=== PATIENT | female | born 1995 | race African-American/Black ===

== ENCOUNTER 2019-05-19 13:44 | Emergency (ER) | payer OTHER, SELFPAY ==
[2019-05-19 14:16] VITALS: BP 106/67; PULSE 78; RESP 19; TEMP 37; O2SAT 100
[2019-05-19 14:29] LABS: Basophils Percent Auto 0.5 % (0.2-1.2); Eosinophils Absolute Auto 0.1 K/mm3 (0-0.3); Eosinophils Percent Auto 2.1 % (0-4.4); Hematocrit 34.8 % (37.0-47.0); Hemoglobin 10.9 g/dL (12.0-15.0); Immature Granulocyte Absolute 0.01 K/mm3 (0.00-0.031); Immature Granulocyte Percent A 0.2 % (0-0.5); Lymphocytes Absolute Auto 1.34 K/mm3 (0.9-3.2); Lymphocytes Percent Auto 31.4 % (18.3-44.2); Mean Corpuscular HGB Conc 31.3 g/dl (32-36); Mean Corpuscular Hemoglobin 26.8 pg (26-34); Mean Corpuscular Volume 85.5 fl (80-100); Mean Platelet Volume 8.5 fl (7.4-10.4); Monocytes Absolute Auto 0.3 K/mm3 (0.1-0.6); Monocytes Percent Auto 6.1 % (2.6-8.5); Neutrophils Absolute Auto 2.6 K/mm3 (1.3-6.7); Neutrophils Percent Auto 59.7 % (45.5-73.1); Platelet Count Result 440 k/mm3 (150-375); Red Blood Count 4.07 M/mm3 (4.2-5.4); Red Cell Distribution Width 17.4 % (11.5-14.5); White Blood Count 4.3 K/mm3 (4.5-10.0)
[2019-05-19 14:43] LABS: Alanine Aminotransferase 14 U/L (4-35); Albumin Level 4.6 g/dL (3.5-5.1); Alkaline Phosphatase 61 U/L (38-126); Aspartate Amino Transferase 27 U/L (14-36); Bilirubin,Total 0.3 mg/dL (0.2-1.3); Blood Urea Nitrogen 4 mg/dL (7-17); Calcium 9.6 mg/dL (8.4-10.2); Carbon Dioxide 26 mmol/L (22-30); Chloride 103 mmol/L (98-107); Estimated Glomerular Filt Rate > 60; Glucose 94 mg/dL (65-105); Lipase 90 U/L (23-300); Potassium 3.5 mmol/L (3.4-5.0); Sodium 137 mmol/L (137-145)
--- NOTE | 2019-05-19 15:56 | PC.NURSE ---
1525 pt left waiting room with friend and child.
== END 2019-05-19 15:56 | disposition left against medical advice (07) ==
PROVIDERS: Emergency Provider Emergency Medicine
DX: R11.10 Vomiting, unspecified (principal)
CPT/HCPCS: 36415; 80053; 83690; 85025; 99199

== ENCOUNTER 2019-06-08 06:07 | Emergency (ER) | payer OTHER, SELFPAY ==
[2019-06-08 06:16] VITALS: BP 139/85; PULSE 100; RESP 16; TEMP 36.9; O2SAT 100
--- NOTE | 2019-06-08 06:16 | ED.GENADULT ---
HPI - General Adult General Chief complaint: Nausea/Vomiting/Diarrhea Stated complaint: n/v, preg Time Seen by Provider: 06/08/19 06:16 Source: patient Mode of arrival: ambulatory Limitations: no limitations History of Present Illness HPI narrative: Patient is a 24-year-old female who presents for evaluation of nausea and vomiting. Per patient, she is reportedly 2 months . She is a , last resulted in a miscarriage. Patient reports a one-month history of nausea, vomiting, intermittent diarrhea. No chest pain or shortness of breath currently. No vaginal bleeding or discharge. No dysuria or hematuria. No fever or chills. Patient has an appointment with an WAREHOUSE ADMINISTRATIVE ASSISTANT for . No back pain or abdominal pain or cramping. Patient states she has not been able to hold any fluids down over the past week. She was seen at [facility] facility and given IV fluids and discharged home last week. Related Data Allergies Allergy/AdvReac Type Severity Reaction Status Date / Time No Known Allergies Allergy Verified 02/15/19 17:30 Review of Systems Review of Systems: Narrative: CONSTITUTIONAL: Denies fever, chills, or sweats. ENT: Denies rhinorrhea, congestion, sore throat, or otalgia. CARDIOVASCULAR: Denies chest pain, palpitations, or edema. RESPIRATORY: Denies cough or dyspnea. GASTROINTESTINAL: Denies abdominal pain, reports nausea, vomiting, intermittent diarrhea GENITOURINARY: Denies dysuria or hematuria. SKIN: Denies rash or itching. MUSCULOSKELETAL: Denies back pain, joint pain, or myalgia. NEUROLOGIC: Denies headache, numbness, or weakness. PMFSH Surgical History Surgical History (Updated 06/08/19 @ 06:25 by Zaira Pimentel MD) H/O section Social History Social History (Updated 06/08/19 @ 06:25 by Zaira Pimentel MD) Smoking status: Never smoker Alcohol intake: never Substance use: former Substance use type: marijuana Gender identity (if verbalized by the patient): Female Exam Narrative: Exam Narrative: GENERAL: Well-appearing, well-nourished, and in no acute distress. HEAD: Normocephalic, atraumatic. EYES: PERRLA and EOMI. ENT: Nares clear, no rhinorrhea or epistaxis. Mucous membranes moist. NECK: Supple. CHEST: Clear to auscultation. No respiratory distress. HEART: Regular rate and rhythm. No murmur heard. Normal peripheral pulses. ABDOMEN: Soft, nontender, nondistended, normal active bowel sounds. EXTREMITIES: Normal range of motion. No edema. SKIN: Warm, dry, no rash. NEURO: No focal deficits. Alert and oriented x3 Course Course Emergency Course: Patient presented for evaluation of nausea and vomiting in the setting of first trimester . The time of initial assessment, ABCs are intact and vital signs are stable. Physical examination is unremarkable. Patient was stable vital signs. Patient is well-appearing, moist mucous membranes, no signs of severe dehydration. She is not having any vaginal bleeding, vaginal discharge, pelvic pain or loss of fluids. Patient has evidence of dehydration with ketones in urinalysis. Urinalysis might be consistent with UTI although it does appear to be contaminated given squamous cells present. Pt with trace bacteriuria given state will treat this. Otherwise, laboratory results show mild hypokalemia, which is able to replenish orally after the patient was given IV fluids and antiemetic. Patient has follow-up with her WAREHOUSE ADMINISTRATIVE ASSISTANT this week. She was then discharged home. Vital Signs Vital signs: Vital Signs Temperature 36.9 C 06/08/19 06:16 Pulse Rate 100 06/08/19 06:16 Respiratory Rate 16 06/08/19 06:16 Blood Pressure 139/85 06/08/19 06:16 Pulse Oximetry 100 06/08/19 06:16 Temperature 36.9 C 06/08/19 06:16 Pulse Rate 100 06/08/19 06:16 Respiratory Rate 16 06/08/19 06:16 Blood Pressure 139/85 06/08/19 06:16 Pulse Oximetry 100 06/08/19 06:16 Medical Decision Making Vit
[2019-06-08] MEDS: SODIUM CHLORIDE 0.9% IV 1,000 ML 999 ML IV CONT (06:29)
[2019-06-08] MEDS: ONDANSETRON INJ 4 MG/2 ML VIAL IV PUSH (06:29)
[2019-06-08 06:35] LABS: Basophils Percent Auto 0.2 % (0.2-1.2); Hematocrit 35.6 % (37.0-47.0); Hemoglobin 11.7 g/dL (12.0-15.0); Immature Granulocyte Absolute 0.01 K/mm3 (0.00-0.031); Immature Granulocyte Percent A 0.2 % (0-0.5); Lymphocytes Absolute Auto 0.86 K/mm3 (0.9-3.2); Lymphocytes Percent Auto 13.8 % (18.3-44.2); Mean Corpuscular HGB Conc 32.9 g/dl (32-36); Mean Corpuscular Hemoglobin 27.5 pg (26-34); Mean Corpuscular Volume 83.6 fl (80-100); Monocytes Absolute Auto 0.3 K/mm3 (0.1-0.6); Neutrophils Absolute Auto 5.1 K/mm3 (1.3-6.7); Neutrophils Percent Auto 81.8 % (45.5-73.1); Platelet Count Result 427 k/mm3 (150-375); Red Blood Count 4.26 M/mm3 (4.2-5.4); Red Cell Distribution Width 17.6 % (11.5-14.5); White Blood Count 6.2 K/mm3 (4.5-10.0)
[2019-06-08 06:40] LABS: Add Urine Microscopic? YES; Appearance Urine Cloudy (Clear); Bacteria Urine Trace /hpf; Bilirubin Urine 1+ (Negative); Blood Urine Negative (Negative); Color Urine Yellow (Yellow); Glucose Urine UA Negative (Negative); Ketones Urine 2+ mg/dL (Negative); Leukocyte Esterase Ur 2+ LEU/UL (Negative); Mucus Urine Heavy /lpf; Nitrate Urine Negative (Negative); Protein Urine 3+ mg/dL (Negative); Squamous Epithelial Cell Urine Many /hpf (Few)
[2019-06-08 06:48] LABS: Alanine Aminotransferase 20 U/L (4-35); Alkaline Phosphatase 61 U/L (38-126); Aspartate Amino Transferase 32 U/L (14-36); Bilirubin,Total 0.3 mg/dL (0.2-1.3); Blood Urea Nitrogen 8 mg/dL (7-17); Calcium 10.1 mg/dL (8.4-10.2); Carbon Dioxide 24 mmol/L (22-30); Chloride 100 mmol/L (98-107); Estimated Glomerular Filt Rate > 60; Glucose 106 mg/dL (65-105); Lipase 160 U/L (23-300); Potassium 2.9 mmol/L (3.4-5.0); Sodium 135 mmol/L (137-145)
[2019-06-08] MEDS: DEXTROSE 5%/0.45% SOD CHL 1,000 ML 1000 ML IV CONT (06:58)
[2019-06-08] MEDS: POTASSIUM CHLORIDE 20 MEQ TABLET 40 MEQ PO (07:49)
[2019-06-08] MEDS: FAMOTIDINE 20 MG/2 ML VIAL IV PUSH (07:49)
[2019-06-08 07:50] VITALS: BP 106/87; PULSE 84; RESP 16
== END 2019-06-08 07:50 | disposition home or self-care (01) ==
PROVIDERS: Emergency Provider Emergency Medicine
DX: O21.1 Hyperemesis gravidarum with metabolic disturbance (principal); O26.891 Other specified pregnancy related conditions, first trimester; R82.71 Bacteriuria; Z3A.09 9 weeks gestation of pregnancy
CPT/HCPCS: 36415; 80053; 81001; 81025; 83690; 84702; 85025; 87086; 87088; 96365; 96375; 99284; A9270; J2405; J7030

== ENCOUNTER 2019-08-16 13:07 | Outpatient (CLI) | payer OTHER, SELFPAY ==
--- NOTE | ~2019-08-16 | US_ITS ---
EXAMINATION: US OB follow up EXAM DATE: 08/16/2019 13:46 INDICATION: . 2nd trimester. TECHNIQUE: Pelvic obstetrical transabdominal sonogram was performed by a technologist. There are mu ltiple grayscale and Doppler images available for interpretation. There are no earlier studies of th is gestation for comparison. FINDINGS: There is a single fetus identified in vertex presentation with a heart rate of 154 beats pe r minute. The placenta is located in the anterior position. There is no sonographic evidence of retr oplacental hemorrhage identified. BIOMETRIC DATA: Biparietal diameter (BPD): 4.4cm ----------------> 19 weeks 3 days. Head circumference (HC): 16.8 cm ----------------> 19 weeks 3 days. Abdominal circumference (AC): 13.5 cm ----------> 19 weeks 0 days. Femur length (FL): 2.9 cm --------------------------> 18 weeks 5 days. These measurements are concordant. HC/AC ratio is 1.25 (The 5th -- 95th percentile range is 1.09-1.26. Estimated weight is 265 g +/- 40 g. This is the 20th percentile when the currently reported cl inical gestation age 19 weeks 3 days, clinical estimated date of delivery (KASSY-OPE) 01/07/20 is used. estimated gestational age based on measurements from this exam is 19 weeks 1 day, with an topher mated date of delivery (KASSY-AUA) 01/08. IMPRESSION: 1. Single fetus in vertex presentation with heart rate 154 beats per minute. 2. Estimated weight of 265 grams, 20th percentile using the currently reported clinical gestat ion age of 19 weeks 3 days, KASSY(OPE) 01/06. Reviewed, dictated and finalized at location A. IMPRESSION: 1. Single fetus in vertex presentation with heart rate 154 beats per minute. 2. Estimated weight of 265 grams, 20th percentile using the currently re ported clinical gestation age of 19 weeks 3 days, KASSY(OPE) 01/06.
== END 2019-08-16 13:08 | disposition home or self-care (01) ==
DX: Z34.80 Encounter for supervision of other normal pregnancy, unspecified trimester (principal); Z3A.19 19 weeks gestation of pregnancy
CPT/HCPCS: 76816

== ENCOUNTER 2019-12-05 10:55 | Observation (INO) | payer OTHER, SELFPAY ==
[2019-12-05] VITALS (11 sets, daily range): BP systolic 104–133; BP diastolic 62–86; PULSE 72–97; RESP 16; TEMP 36.9; O2SAT 100; BMI 26.9
--- NOTE | 2019-12-05 10:53 | PC.NURSE ---
GAVE REPORT TO SHLOMO COURTNEY IN OB
--- NOTE | 2019-12-05 12:08 | PC.NURSE ---
spoke to Steph Cunningham CNM and reported pt admission. notified walk in and pt has 2 previous c sections. complains of lower abdominal pain. pt states old c section place feeling burning sensation. pt states she has not been able to eat for two days due to nausea. IV fluid order received.
[2019-12-05 12:28] LABS: Add Urine Microscopic? YES; Appearance Urine Cloudy (Clear); Bacteria Urine Trace /hpf; Bilirubin Urine Negative (Negative); Blood Urine Negative (Negative); Color Urine Yellow (Yellow); Glucose Urine UA Negative (Negative); Ketones Urine 2+ mg/dL (Negative); Leukocyte Esterase Ur 1+ LEU/UL (NEGATIVE); Mucus Urine Moderate /lpf; Nitrate Urine Negative (Negative); Protein Urine 1+ mg/dL (Negative); RBC Urine 0-2 /hpf (0-2); Squamous Epithelial Cell Urine Many /hpf (Few); WBC Urine 0-3 /hpf (0-3)
[2019-12-05] MEDS: LACTATED RINGERS 1,000 ML 999 ML IV CONT (12:41)
[2019-12-05] MEDS: ONDANSETRON INJ 4 MG/2 ML VIAL IV PUSH (12:42)
--- NOTE | 2019-12-05 13:00 | PC.NURSE ---
pt states she is feeling better and asked for food.
--- NOTE | 2019-12-05 14:08 | PC.NURSE ---
Addendum entered by Isabella Santiago RN 12/05/19 14:09: this note was entered for 1330 Original Note: called Steph bull cnm and reported UA result and improvement of pt pain. discharge order received
--- NOTE | 2019-12-26 08:08 | P.PNOB_ITS ---
OB - Triage/Final Diagnosis Evaluation Laboratory results: Laboratory Tests 12/05/19 12:03 Urine Color Yellow Urine Appearance Cloudy H Urine pH 7.0 Ur Specific [place] 1.020 Urine Protein 1+ H Urine Glucose (UA) Negative Urine Ketones 2+ H Ur Blood (Man) Negative Urine Nitrate Negative Urine Bilirubin Negative Urine Urobilinogen 4.0 H Ur Leukocyte Esterase 1+ H Urine RBC 0-2 Urine WBC 0-3 Ur Squamous Epith Cells Many H Urine Bacteria Trace Hyaline Casts 1-2 Urine Mucus Moderate H Final Diagnosis (1) False labor: Code(s): O47.9 - False labor, unspecified Status: Acute
== END 2019-12-05 13:48 | disposition home or self-care (01) ==
PROVIDERS: Admitting Provider Obstetrics & Gynecology; PCP Advanced Practice Midwife; Visit Provider Obstetrics & Gynecology
DX: O47.9 False labor, unspecified (principal); Z3A.00 Weeks of gestation of pregnancy not specified
CPT/HCPCS: 81001; 87086; 87088; 96374; G0378; G0379; J2405; J7120

== ENCOUNTER 2020-11-25 00:30 | Emergency (ER) | payer OTHER, SELFPAY ==
[2020-11-25] VITALS (7 sets, daily range): BP systolic 135–146; BP diastolic 89–106; PULSE 78; RESP 16; TEMP 36.9; O2SAT 91–100
--- NOTE | ~2020-11-25 | CT_ITS ---
EXAMINATION: CT facial bones w con EXAM DATE: 11/25/2020 02:53 INDICATION: right side facial swelling eval for abscess. TECHNIQUE: Spiral CT of the facial bones was acquired in the axial plane following intravenous inject ion of 100 mL Omnipaque 350. Coronal reformatted images were also reviewed. The dose-length product (DLP) for this examination was 274.28 mGy-cm. The exposure was tailored according to patient size, and iterative reconstruction (ASIR) was used as additional dose reduction technique. There is no yfn or study for comparison. FINDINGS: Diffuse edema along the right side of face, cheek, chin. There is focal slightly peripheral ly enhancing region anterior to the right maxillary bone measuring 1.3 cm diameter by 6 mm in maximal thickness, could be an early developing abscess. This is been indicated on image 69. There are multi ple dental cavities including tooth #4, right upper premolar with subtle lucency surrounding its root , could be underlying source of infection. Some reactive sublingual, right submandibular lymph nodes. There is mild to moderate mucoperiosteal thickening in the right maxillary sinus without air-fluid l evel. IMPRESSION: 1. Multiple dental cavities, including right upper premolar periapical lucency could be source of chambers spected early developing small abscess anterior to the maxillary bone. 2. Right facial swelling. Reviewed, dictated and finalized at location A. IMPRESSION: 1. Multiple dental cavities, including right upper premolar periapical lucency could be source of suspected early developing small abscess anterior to the ma xillary bone. 2. Right facial swelling.
[2020-11-25 02:23] LABS: Basophils Percent Auto 0.3 % (0.2-1.2); Eosinophils Absolute Auto 0.1 K/mm3 (0-0.3); Eosinophils Percent Auto 1.2 % (0-4.4); Hematocrit 33.6 % (37.0-47.0); Hemoglobin 10.2 g/dL (12.0-15.0); Immature Granulocyte Absolute 0.02 K/mm3 (0.00-0.031); Immature Granulocyte Percent A 0.3 % (0-0.5); Lymphocytes Absolute Auto 1.44 K/mm3 (0.9-3.2); Lymphocytes Percent Auto 19.5 % (18.3-44.2); Mean Corpuscular HGB Conc 30.4 g/dl (32-36); Mean Corpuscular Hemoglobin 25.2 pg (26-34); Mean Platelet Volume 8.7 fl (7.4-10.4); Monocytes Absolute Auto 0.7 K/mm3 (0.1-0.6); Monocytes Percent Auto 8.8 % (2.6-8.5); Neutrophils Absolute Auto 5.2 K/mm3 (1.3-6.7); Neutrophils Percent Auto 69.9 % (45.5-73.1); Platelet Count Result 378 k/mm3 (150-375); Red Blood Count 4.05 M/mm3 (4.2-5.4); Red Cell Distribution Width 19.7 % (11.5-14.5); White Blood Count 7.4 K/mm3 (4.5-10.0)
[2020-11-25] MEDS: MORPHINE SULFATE (*CRX) 4 MG/ML INJ IV PUSH (02:24)
[2020-11-25 02:34] LABS: Lactic Acid Reflex 0.7 mmol/L (0.7-2.1)
[2020-11-25 02:35] LABS: Alanine Aminotransferase 11 U/L (4-35); Albumin Level 4.5 g/dL (3.5-5.1); Alkaline Phosphatase 68 U/L (38-126); Anion Gap 11 mmol/L (8-16); Aspartate Amino Transferase 30 U/L (14-36); Bilirubin,Total 0.2 mg/dL (0.2-1.3); Blood Urea Nitrogen 6 mg/dL (7-17); Calcium 9.7 mg/dL (8.4-10.2); Carbon Dioxide 26 mmol/L (22-30); Chloride 103 mmol/L (98-107); Estimated Glomerular Filt Rate > 60; Glucose 106 mg/dL (65-110); Potassium 3.5 mmol/L (3.4-5.0); Sodium 140 mmol/L (137-145)
--- NOTE | 2020-11-25 03:31 | PC.NURSE ---
Contacted pharmacy for abx. Spoke with Prince, he states he will send one down.
--- NOTE | 2020-11-25 03:40 | ED.GENADULT ---
HPI - General Adult General Chief complaint: Dental/Oral Stated complaint: dental pain Time Seen by Provider: 11/25/20 01:52 History of Present Illness HPI narrative: Patient 25-year-old female presents the emergency department with chief complaint of facial swelling. The patient states over the last several days she is had swelling in the right side of her face patient states that she has several teeth that have been bothering her and has not seen a dentist. The patient denies fever but reports that swelling went all the way to her eyelids. Patient states yesterday it was actually worse and it is slowly improved somewhat reports that has become exquisitely more painful. Related Data Allergies Allergy/AdvReac Type Severity Reaction Status Date / Time No Known Allergies Allergy Verified 11/25/20 01:03 Review of Systems Review of Systems: A 10 system review of systems was completed on the patient and is negative except for what is stated in the HPI. Nursing and ancillary documentation was reviewed. PMFSH Surgical History Surgical History H/O section Social History Social History Smoking status: Never smoker Alcohol intake: never Substance use: former Substance use type: marijuana Gender identity (if verbalized by the patient): Female Exam Narrative: GENERAL: Well-appearing, well-nourished, and in no acute distress. HEAD: Normocephalic, atraumatic. EYES: PERRLA and EOMI. ENT: Nares clear, no rhinorrhea or epistaxis. Mucous membranes moist. There is swelling present on the buccal mucosa of the right side there is no appreciable abscess but there is induration present in the tissue NECK: Supple. CHEST: Clear to auscultation. No respiratory distress. HEART: Regular rate and rhythm. No murmur heard. Normal peripheral pulses. ABDOMEN: Soft, nontender, nondistended, normal active bowel sounds. EXTREMITIES: Normal range of motion. No edema. SKIN: Warm, dry, no rash. NEURO: No focal deficits. Alert and oriented x3. PSYCH: Normal mood and affect. Course Vital Signs Vital signs: Vital Signs Temperature 36.9 C 11/25/20 00:35 Pulse Rate 78 11/25/20 00:35 Respiratory Rate 16 11/25/20 00:35 Blood Pressure 145/96 H 11/25/20 00:35 Pulse Oximetry 100 11/25/20 00:35 Temperature 36.9 C 11/25/20 00:35 Pulse Rate 78 11/25/20 02:26 Respiratory Rate 16 11/25/20 02:26 Blood Pressure 146/100 H 11/25/20 02:26 Pulse Oximetry 100 11/25/20 02:26 Medical Decision Making Vital Signs Vital Signs: Vital Signs Temperature 36.9 C 11/25/20 00:35 Pulse Rate 78 11/25/20 00:35 Respiratory Rate 16 11/25/20 00:35 Blood Pressure 145/96 H 11/25/20 00:35 Pulse Oximetry 100 11/25/20 00:35 Temperature 36.9 C 11/25/20 00:35 Pulse Rate 78 11/25/20 02:26 Respiratory Rate 16 11/25/20 02:26 Blood Pressure 146/100 H 11/25/20 02:26 Pulse Oximetry 100 11/25/20 02:26 Lab Data Result diagrams: 11/25/20 02:16 11/25/20 02:16 Labs: Lab Results 11/25/20 11/25/20 11/25/20 Range/Units 02:16 02:16 02:16 WBC 7.4 (4.5-10.0) K/mm3 RBC 4.05 L (4.2-5.4) M/mm3 Hgb 10.2 L (12.0-15.0) g/dL Hct 33.6 L (37.0-47.0) % MCV 83.0 (80-100) fl MCH 25.2 L (26-34) pg MCHC 30.4 L (32-36) g/dl RDW 19.7 H (11.5-14.5) % Plt Count 378 H (150-375) k/mm3 MPV 8.7 (7.4-10.4) fl Immature Gran % (Auto) 0.3 (0-0.5) % Neut % (Auto) 69.9 (45.5-73.1) % Lymph % (Auto) 19.5 (18.3-44.2) % [place] % (Auto) 8.8 H (2.6-8.5) % Eos % (Auto) 1.2 (0-4.4) % Baso % (Auto) 0.3 (0.2-1.2) % Lymph # (Auto) 1.44 (0.9-3.2) K/mm3 [place] # (Auto) 0.7 H (0.1-0.6) K/mm3 Eos # (Auto) 0.1 (0-0.3) K/mm3 Baso # (Auto) 0.0 (0.0-0.1) K/mm3 Abs Immat Gran (auto) 0.02
[2020-11-25] MEDS: AMPICILLIN SULB 3 GM/NS 100 ML 3 GM/100 ML VIAL IVPB (03:44)
--- NOTE | 2020-11-25 03:48 | PC.NURSE ---
Patient requesting more pain medications, she states that the morphine is not helping. ERP notified.
[2020-11-25 04:24] LABS: Add Urine Microscopic? YES; Appearance Urine Clear (Clear); Bacteria Urine Trace /hpf; Bilirubin Urine Negative (Negative); Blood Urine 1+ (Negative); Calcium Oxalate Crystals Urine Present /hpf; Color Urine Yellow (Yellow); Glucose Urine UA Negative (Negative); Ketones Urine Negative (Negative); Leukocyte Esterase Ur Trace LEU/UL (Negative); Mucus Urine Heavy /lpf; Nitrate Urine Negative (Negative); Protein Urine 1+ mg/dL (Negative); Specific Grav Ur 1.024 (1.001-1.035); Squamous Epithelial Cell Urine Many /hpf (Few)
== END 2020-11-25 05:08 | disposition home or self-care (01) ==
PROVIDERS: Emergency Provider Emergency Medicine
DX: L03.211 Cellulitis of face (principal); J32.9 Chronic sinusitis, unspecified
CPT/HCPCS: 36415; 70487; 80053; 81001; 81025; 83605; 85025; 87086; 87088; 96365; 96375; 99284; J0295; J2270; Q9967

== ENCOUNTER 2021-07-29 08:37 | Emergency (ER) | payer OTHER, SELFPAY ==
[2021-07-29 08:45] VITALS: BP 134/85; PULSE 109; RESP 16; TEMP 36.7; O2SAT 100
--- NOTE | 2021-07-29 09:36 | ED.EYEPROB ---
HPI - Eye Problem General Chief complaint: Eye Problems Stated complaint: Right Eye Drainage, Redness Time Seen by Provider: 07/29/21 09:16 Source: patient History of Present Illness HPI Narrative: Patient presents with right eye irritation and drainage. Her symptoms started 2 days ago she also reports multiple family members with the same. Her symptoms have not improved so she came to the ER for evaluation. She reports clear drainage from her Denies any blurry vision. She thinks she picked something up from another relative outside the house as they also had similar symptoms. She denies any fevers, chills, cough, congestion. Related Data Allergies Allergy/AdvReac Type Severity Reaction Status Date / Time No Known Allergies Allergy Verified 07/29/21 08:53 Review of Systems Review of Systems: CONSTITUTIONAL: Denies fever, chills, or sweats. EYES: Reports redness and clear drainage ge. ENT: Denies rhinorrhea, congestion, sore throat, or otalgia. CARDIOVASCULAR: Denies chest pain, palpitations, or edema. RESPIRATORY: Denies cough or dyspnea. GASTROINTESTINAL: Denies abdominal pain, nausea, vomiting, or diarrhea. GENITOURINARY: Denies dysuria or hematuria. SKIN: Denies rash or itching. MUSCULOSKELETAL: Denies back pain, joint pain, or myalgia. NEUROLOGIC: Denies headache, numbness, dizziness, or weakness. PSYCHIATRIC: Denies anxiety or depression. All systems reviewed & are unremarkable except as noted in HPI and below PMFSH Surgical History Surgical History H/O section Social History Social History Smoking status: Never smoker Alcohol intake: never Substance use: former Substance use type: marijuana Gender identity (if verbalized by the patient): Female Exam Narrative: GENERAL: Well-appearing, well-nourished, and in no acute distress. HEAD: Normocephalic, atraumatic. EYES: PERRLA and EOMI. diffuse conjunctival injection anterior chamber quiet, no photophobia ENT: Nares clear, no rhinorrhea or epistaxis. Mucous membranes moist. NECK: Supple. No masses. No JVD EXTREMITIES: Normal range of motion. No edema. SKIN: Warm, dry, no rash. NEURO: No focal deficits. Alert and oriented x3. PSYCH: Normal mood and affect. Course Vital Signs Vital signs: Vital Signs Temperature 36.7 C 07/29/21 08:45 Pulse Rate 109 H 07/29/21 08:45 Respiratory Rate 16 07/29/21 08:45 Blood Pressure 134/85 07/29/21 08:45 Pulse Oximetry 100 07/29/21 08:45 Temperature 36.7 C 07/29/21 08:45 Pulse Rate 78 07/29/21 10:21 Respiratory Rate 20 07/29/21 10:21 Blood Pressure 118/68 07/29/21 10:21 Pulse Oximetry 99 07/29/21 10:21 MDM - Eye Problem MDM Narrative Medical decision making narrative: H&P as above, vss, pt looks clinically well, exam with conjunctival injection on the right eye with clear drainage, labs/img considered, symptomatic relief available as needed, on reevaluation pt continues to looks clinically well. Suspect viral conjunctivitis, dns orbital or periorbital cellulitis, iritis. plan to tx/monitor as op w/ pcm f/u findings/plan discussed with pt, pt agree/comfortable with plan, return precautions given Discharge Plan Discharge Clinical Impression: Acute viral conjunctivitis Qualifiers: Laterality: right Qualified Code(s): B30.9 - Viral conjunctivitis, unspecified Patient Disposition: Home, Self-Care Condition: Improved Instructions: Antibiotic Form Additional Instructions: Please return if your symptoms worsen or fail to improve. If you develop a fever, can not eat/drink anything or if you have any other concerns. Prescriptions: New carboxymethylcellulose sodium [Refresh Liquigel] 1 % drops, liquid gel 2 drp EACH EYE BID PRN (Reason: dry eye(s)) Qty: 15 RF: 0 bacitracin 500 unit/gram ointment 1 applic RIGHT EYE Q12H Qty: 3.5 RF: 0 No Act
[2021-07-29 10:21] VITALS: BP 118/68; PULSE 78; RESP 20; O2SAT 99
== END 2021-07-29 10:23 | disposition home or self-care (01) ==
PROVIDERS: Emergency Provider Emergency Medicine
DX: B30.9 Viral conjunctivitis, unspecified (principal)
CPT/HCPCS: 99283

== ENCOUNTER 2022-04-13 17:02 | Emergency (ER) | payer OTHER, SELFPAY ==
[2022-04-13 17:24] VITALS: BP 130/88; PULSE 89; RESP 17; TEMP 37.2; O2SAT 100
--- NOTE | 2022-04-13 19:47 | ED.SKABFB ---
HPI - Skin/Abscess/Foreign Bdy General Chief complaint: Skin/Abscess/Foreign Body Stated complaint: knot on head Time Seen by Provider: 04/13/22 18:52 Source: patient Mode of arrival: ambulatory Limitations: no limitations History of Present Illness HPI narrative: This is a 26 year old female that presents to the ER for cold symptoms ongoing over the last couple of days. Reports congestion, sore throat and a headache. Reports she noted a knot on the back of her head which prompted her to be seen. Denies fever or cough. Related Data Allergies Allergy/AdvReac Type Severity Reaction Status Date / Time No Known Allergies Allergy Verified 04/13/22 18:22 Review of Systems Review of Systems: CONSTITUTIONAL: Denies fever ENT: Reports congestion, sore throat RESPIRATORY: Denies cough All systems reviewed & are unremarkable except as noted in HPI and below PMFSH Past Medical History Medical History (Updated 04/13/22 @ 21:32 by Dalia Worrell PA-C) No active medical problems Surgical History Surgical History H/O section Social History Social History Smoking status: Never smoker Alcohol intake: never Substance use: former Substance use type: marijuana Gender identity (if verbalized by the patient): Female Exam Narrative: GENERAL: Well-appearing, well-nourished, and in no acute distress. HEAD: Normocephalic, atraumatic. EYES: EOMI. ENT: Nares clear, no rhinorrhea or epistaxis. Mucous membranes moist. Oropharynx without tonsillar hypertrophy exudate or other lesions. Bilateral TMs pearly gil non-bulging NECK: Supple. No masses. Left posterior cervical adenopathy, tender to palpation CHEST: Clear to auscultation. No respiratory distress. No wheezes rales or rhonchi HEART: Regular rate and rhythm. No murmur heard. Normal peripheral pulses. EXTREMITIES: Normal range of motion. No edema. SKIN: Warm, dry, no rash. NEURO: No focal deficits. Alert and oriented x3. CN II-XII grossly intact PSYCH: Normal mood and affect Course Vital Signs Vital signs: Vital Signs Temperature 98.9 F 01/29/23 17:24 Pulse Rate 89 04/13/22 17:24 Respiratory Rate 17 04/13/22 17:24 Blood Pressure 130/88 04/13/22 17:24 Pulse Oximetry 100 04/13/22 17:24 Temperature 98.9 F 04/13/22 17:24 Pulse Rate 89 04/13/22 17:24 Respiratory Rate 17 04/13/22 17:24 Blood Pressure 130/88 04/13/22 17:24 Pulse Oximetry 100 04/13/22 17:24 MDM - Skin/Abscess/Foreign Bdy MDM Narrative Medical decision making narrative: Patient presents to the emergency department for some posterior cervical adenopathy. She has a small, mobile lymph node in the left posterior cervical region. She is afebrile and nontoxic-appearing. She was also endorsing some cold symptoms. Her oxygen saturation is normal on room air. Lungs are clear on exam. Monoscreen, influenza, COVID, and strep screens are negative. Patient was instructed on continued symptomatic care of viral infection and instructed to monitor her mildly inflamed lymph node. She is to follow-up with her primary provider. She was given warnings to return to the ER Differential Diagnosis Differential diagnosis: Likely abscess of skin or subcutaneous tissue and other (lymphadenopathy, viral infection) Lab Data Attestation: I reviewed the patient's lab results. Labs: Lab Results 04/13/22 04/13/22 04/13/22 Range/Units 19:56 19:56 20:24 Monoscreen Negative (Negative) Influenza A (RT-PCR) Negative (Negative) Influenza B (RT-PCR) Negative (Negative) RSV (RT-PCR) Negative (Negative) SARS-CoV-2 RNA (RT-PCR) Negative Group A Strep (PCR) Not detected (Negative) Critical Care Time Critical Care Time Critical Care Time: No Discharge Plan Discharge Clinical Impression: Lymphadenopathy, Acute viral synd
[2022-04-13] MEDS: ACETAMINOPHEN 500 MG TABLET 1000 MG PO (19:48)
[2022-04-13] MEDS: KETOROLAC 30 MG/ML VIAL (*BKC) IM (19:48)
[2022-04-13 20:25] LABS: Strep Group A RT-PCR NOT DETECTED (Negative)
[2022-04-13 20:42] LABS: Influenza A QL RT-PCR Negative (Negative); Influenza B QL RT-PCR Negative (Negative); RSV RNA, RT-PCR Negative (Negative); SARS-CoV-2 RNA PCR Negative
[2022-04-13 21:12] LABS: Monoscreen Negative (Negative); Negative Monotest Control Negative (Negative); Positive Monotest Control Positive (Positive)
== END 2022-04-13 21:45 | disposition home or self-care (01) ==
PROVIDERS: Emergency Provider Physician Assistant
DX: B34.9 Viral infection, unspecified (principal); R59.1 Generalized enlarged lymph nodes; Z20.822 Contact with and (suspected) exposure to COVID-19
CPT/HCPCS: 36415; 86308; 87637; 87651; 96372; 99283; A9270; J1885

== ENCOUNTER 2024-07-17 08:56 | Observation (INO) | payer OTHER, SELFPAY ==
[2024-07-17] VITALS (21 sets, daily range): BP systolic 123–137; BP diastolic 82–92; PULSE 36–86; O2SAT 74–100; BMI 23.8
--- NOTE | ~2024-07-17 | US_ITS ---
LIMITED OBSTETRIC ULTRASOUND Ordering provider: Chintan Berry MD History: . EDC confirmation, well being, XOCHITL @bedside . Comparison: None. FINDINGS: MATERNAL CERVIX: Measures 2.9 cm. cm. PRESENTATION: Vertex. PLACENTAL LOCATION: Anterior. No previa. Distance from cervix is 5.8 cm. HEART RATE: 148 bpm (normal is between 110 to 160 bpm). AMNIOTIC FLUID INDEX: 12.6 cm. 5th percentile is 7.7 cm. 95th percentile is 24.9 cm. Largest vertica l pocket is 4.1 cm. BIOMETRY: BPD: 6.65) cm (26weeks 6 days) HC: 24.48 cm (26 weeks 4 days) AC: 21.25 cm (25 weeks 5 days) FL: 4.57 cm (25 weeks 1 days) Parametric ratios: Today's average US gestational age: 26 weeks 1 days Today's EDC: October 22, 2024 XOCHITL: 12.64. Estimated weight: 839.89gm. Rank: CI: 79.25 HC/AC: 1.15 FL/BPD: 68.81 FL/AC: 21.52. OTHER: Maternal ovaries not visualized. IMPRESSION: Single live fetus of cephalic presentation. Heart rate is 148 bpm. Reviewed, dictated and finalized at location A.
--- NOTE | 2024-07-17 09:48 | PC.NURSE ---
Ultrasound at bedside
[2024-07-17 10:21] LABS: Add Urine Microscopic? YES; Appearance Urine Cloudy (Clear); Bacteria Urine Rare /hpf; Bilirubin Urine Negative (Negative); Blood Urine Negative (Negative); Color Urine Yellow (Yellow); Glucose Urine UA Negative (Negative); Ketones Urine 1+ mg/dL (Negative); Leukocyte Esterase Ur 2+ LEU/UL (Negative); Mucus Urine Present /lpf; Need Manual Microscopic Reviewed; Nitrate Urine Negative (Negative); Non Pathogenic Casts 0-2; Protein Urine Negative (Negative); Specific Grav Ur 1.016 (1.001-1.035); Squamous Epithelial Cell Urine Few /hpf (Few); pH Urine 7.5 (5.0-9.0)
[2024-07-17 10:24] LABS: Amphetamine Screen Urine Positive (Negative); Barbiturate Screen Urine Negative (Negative); Benzodiazepines Screen Urine Negative (Negative); Cannabinoid Screen Urine Positive (Negative); Cocaine Screen Urine Negative (Negative); Methadone Screen Urine Negative (Negative); Opiate Screen Urine Negative (Negative); Phencyclidine Screen Urine Negative (Negative)
[2024-07-17 10:35] LABS: Basophils Percent Auto 0.3 % (0.2-1.2); Eosinophils Absolute Auto 0.1 K/mm3 (0-0.3); Eosinophils Percent Auto 0.9 % (0-4.4); Hematocrit 31.4 % (37.0-47.0); Hemoglobin 10.3 g/dL (12.0-15.0); Immature Granulocyte Absolute 0.02 K/mm3 (0.00-0.031); Immature Granulocyte Percent A 0.3 % (0-0.5); Lymphocytes Absolute Auto 1.63 K/mm3 (0.9-3.2); Lymphocytes Percent Auto 28.4 % (18.3-44.2); Mean Corpuscular HGB Conc 32.8 g/dl (32-36); Mean Corpuscular Volume 94.6 fl (80-100); Mean Platelet Volume 8.4 fl (7.4-10.4); Monocytes Absolute Auto 0.3 K/mm3 (0.1-0.6); Monocytes Percent Auto 4.7 % (2.6-8.5); Neutrophils Absolute Auto 3.7 K/mm3 (1.3-6.7); Neutrophils Percent Auto 65.4 % (45.5-73.1); Platelet Count Result 384 k/mm3 (150-375); Red Blood Count 3.32 M/mm3 (4.2-5.4); Red Cell Distribution Width 13.6 % (11.5-14.5); White Blood Count 5.7 K/mm3 (4.5-10.0)
[2024-07-17] MEDS: fentaNYL CITRATE INJ (*CRX) 100 MCG/2 ML VIAL 50 MCG IV PUSH (11:08)
[2024-07-17] MEDS: DEXTROSE 5%/0.45% SOD CHL 1,000 ML 999 ML IV CONT (11:11)
[2024-07-17 11:16] LABS: Hepatitis B Surface Antigen Negative (Negative); Rubella IgG Antibody 92.1 IU/ML
[2024-07-17 11:20] LABS: Syphilis IgG/IgM Antibody Reactive (Negative)
[2024-07-17 11:26] LABS: HIV 1/2 Ab P24 Ag Result Negative (Negative)
[2024-07-17] MEDS: PENICILLIN G BENZATHINE 2,400,000 UNITS/4 ML SYRINGE 2400000 UNITS IM (12:36)
--- NOTE | 2024-07-17 13:27 | PCCCNOTE ---
Received call from SHERWIN Dyer who reported pt./mother was brought in by ambulance and is discharging back home today 07/17. Pt. was unable to get ahold of any family or friends to pick her up and does not have any money for cab/uber. SHERWIN Tirado given cab voucher for pt. to return back home today 07/17 as she is being discharge.
[2024-07-21 07:03] LABS: Reference Lab Test Name RPR W/TITER
--- NOTE | 2024-07-26 04:40 | PM.OBTRLD ---
OB - Triage/Final Diagnosis Visit Information Comments/Additional reasons for admission: I have assessed the risk for this patient, Viktor Spencer, and determined that she would benefit from observation care. Evaluation Laboratory results: Laboratory Tests 07/17/24 09:38 WBC 5.7 RBC 3.32 L Hgb 10.3 L Hct 31.4 L MCV 94.6 MCH 31.0 MCHC 32.8 RDW 13.6 Plt Count 384 H MPV 8.4 Immature Gran % (Auto) 0.3 Neut % (Auto) 65.4 Lymph % (Auto) 28.4 [place] % (Auto) 4.7 Eos % (Auto) 0.9 Baso % (Auto) 0.3 Lymph # (Auto) 1.63 [place] # (Auto) 0.3 Eos # (Auto) 0.1 Baso # (Auto) 0.0 Abs Immat Gran (auto) 0.02 Absolute Neuts (auto) 3.7 Absolute Nucleated RBC 0.000 Nucleated RBC % 0.0 Urine Color Yellow Urine Appearance Cloudy H Urine pH 7.5 Ur Specific [place] 1.016 Urine Protein Negative Urine Glucose (UA) Negative Urine Ketones 1+ H Ur Blood (Man) Negative Urine Nitrate Negative Urine Bilirubin Negative Urine Urobilinogen 1.0 Add Ur Microanalysis Reviewed Leukocyte Esterase Rfl 2+ H Urine RBC 6-10 H Urine WBC 11-20 H Ur Squamous Epith Cells Few Urine Bacteria Rare Urine Casts 0-2 Urine Mucus Present Urine Opiates Screen Negative Urine Methadone Screen Negative Ur Barbiturates Screen Negative Ur Phencyclidine Scrn Negative Ur Amphetamine Screen Positive A U Benzodiazepines Scrn Negative Urine Cocaine Screen Negative U Cannabinoids Screen Positive A Syphilis IgG/IgM Ab Reactive A RPR Titer Add Testing Cancelled RPR w/Rflx to Titer Cancelled Hep Bs Antigen Negative HIV 1&2 Ab/P24 Ag 4thGn Negative Rubella IgG Antibody 92.1 Ref Lab Test Name Rpr w/titer Ref Lab Test Result Blood Type B Positive Antibody Screen Negative Final Diagnosis (1) False labor: Code(s): O47.9 - False labor, unspecified Status: Acute (2) Antepartum syphilis: Code(s): O98.119 - Syphilis complicating , unspecified trimester Status: Acute (3) No care in current : Code(s): O09.30 - Supervision of with insufficient care, unspecified trimester Status: Acute (4) Polysubstance abuse: Code(s): F19.10 - Other psychoactive substance abuse, uncomplicated Status: Acute
== END 2024-07-17 13:39 | disposition home or self-care (01) ==
PROVIDERS: Admitting Provider Obstetrics & Gynecology; Visit Provider Obstetrics & Gynecology
DX: O47.9 False labor, unspecified (principal); O98.119 Syphilis complicating pregnancy, unspecified trimester; A53.9 Syphilis, unspecified; O09.30 Supervision of pregnancy with insufficient antenatal care, unspecified trimester; O99.320 Drug use complicating pregnancy, unspecified trimester; F19.10 Other psychoactive substance abuse, uncomplicated; Z3A.00 Weeks of gestation of pregnancy not specified; Z11.4 Encounter for screening for human immunodeficiency virus [HIV]
CPT/HCPCS: 36415; 76816; 80307; 81001; 85025; 86593; 86703; 86762; 86780; 86850; 86900; 86901; 87086; 87340; 96372; 96374; G0378; G0379; G0432; J0561; J3010

== ENCOUNTER 2024-08-05 13:36 | Observation (INO) | payer MEDICAID, SELFPAY ==
[2024-08-05 14:05] VITALS: BMI 23.4
--- NOTE | 2024-08-05 14:06 | OBADM ---
This patient, Viktor Spencer, admitted to the OB room Labor/Delivery/Recovery 106 for observation. Patient/family oriented to hospital policies and general routines including ID bracelet, bed and alarms, visiting hours, pain management, procedures, bathroom and other care routines, personal items, smoking policy, room service/diet, and visiting hours. Patient/Family are encouraged to report perceived risks to care and to ask questions if they do not understand what they are told or what they should do.
[2024-08-05 14:19] VITALS: BP 122/76; PULSE 69
--- NOTE | 2024-08-05 14:57 | PM.OBTRLD ---
OB - Triage/Final Diagnosis Visit Information Date of evaluation: 08/05/24 Reason for evaluation: other (Bleeding) Comments/Additional reasons for admission: I have assessed the risk for this patient, Viktor Geoffrey Spencer, and determined that she would benefit from observation care. Evaluation Vital signs: Vital Signs - 24 hr 08/05/24 14:19 Pulse Rate 69 Blood Pressure 122/76
--- NOTE | 2024-08-05 16:42 | PCCCNOTE ---
Received consult Met with pt. who reports she is going through a very hard time. Currently has three children an 8 year old, 5 year old, and 4 year old. She is 28 weeks with her fourth kid. FOB's are not available or in the picture. Pt.'s mother recently . She does not feel like she has a support system. She has a brother, Bib Spencer who she was staying with recently however it is a strained relationship. She also has a sister Andrea Spencer ([phone]). Pt. reports that she is technically homeless has been couch hopping with her children, was staying with her sister Andrea until Andrea's home was no longer able to be resided in. She states she was able to convince her brother Bib to watch her children while she came here. Pt. does have a substance abuse history, not tested during this observation stay but was positive for amphetamines and marijuana on 07/17 here. Pt. is vague in regards to her drug use. Pt. reports that due to her complete lack of support system and options she called DCFS on herself a few days ago to report what is going on and that she is in need of help. Pt. requesting care coordination contact DCFS to inform them again that she is in need of help with housing, food, daycare, and general assistance in order to keep her children healthy and in her custody. Provided numerous amounts of information to patient including transportation, food, day care information, all SDIA information she requested, homeless shelters for families, Loki information, substance abuse information. Informed Viktor that I will be contacted DCFS. Patient is requesting that OB start her on a medication to assist her in her depressive thoughts before she leaves, pt. reiterates that she is not suicidal or having thoughts to harm herself (she would never do that to her children) but she wants to start feeling better. RN aware and will reach out to OB. Pt. report that after dinner she plans to go back to her brother's house where her children are. Will need a cab voucher to assist in transportation. Pt. will contact RN once she knows the address, cab voucher provided to nurse. Called [facility] hotline, spoke with Katrin Elena, Intake ID # [id number]. Went over scenario above and fact that mother is requesting DCFS assistance. Per Katrin she confirms that Viktor did call and they have her on the list to start their in home service program. However, will escalate this to an dynamics ax technical architect, investigation will be completed.
== END 2024-08-05 17:19 | disposition home or self-care (01) ==
PROVIDERS: Admitting Provider Obstetrics & Gynecology; Visit Provider Obstetrics & Gynecology
DX: O46.93 Antepartum hemorrhage, unspecified, third trimester (principal); Z3A.28 28 weeks gestation of pregnancy
CPT/HCPCS: G0378; G0379

== ENCOUNTER 2024-08-27 09:48 | Observation (INO) | payer MEDICAID, SELFPAY ==
[2024-08-27] VITALS (107 sets, daily range): BP systolic 109–145; BP diastolic 61–100; PULSE 66–164; RESP 18–20; TEMP 36.5–36.9; O2SAT 88–100; BMI 25.9
--- NOTE | ~2024-08-27 | CT_ITS ---
EXAMINATION: CT BRAIN W/O DATE: 08/27/2024 10:45 INDICATION: Altered mental status TECHNIQUE: Computed tomography (CT) of the head was performed without intravenous contrast. The dose- length product was 605.33 mGy-cm. Automated exposure control and iterative reconstruction technique w ere employed. COMPARISON: No prior studies for comparison. FINDINGS: Normal brain parenchymal volume for age. Normal gil-white differentiation. No acute intrac ranial hemorrhage, infarction, mass or mass effect. No ventriculomegaly or midline shift. Midline sagittal images demonstrate a normal corpus callosum, c raniovertebral junction and sella turcica. Basilar cisterns are patent. There is mild mucosal thickening of the maxillary sinuses. Mastoids are pneumatized. No depressed sku ll fractures. IMPRESSION: 1. No acute intracranial abnormality. Reviewed, dictated and finalized at location B.
--- NOTE | ~2024-08-27 | US_ITS ---
EXAM EXAMINATION: US OB limited DATE: 08/27/2024 15:36 CDT INDICATION: Placental check COMPARISON: 07/17/2024 TECHNIQUE: Real-time transabdominal obstetric ultrasound. FINDINGS: 5 para 3 Gestational age by estimated due date is 32 weeks and 0 days. There is a single intrauterine gestation in vertex presentation. The placenta is posterior/fundal without placenta previa. Within the images of the placenta is a 4 mm focus of increased echogenicity, possibly a placental [place] cification. cardiac activity and movement is noted with a heart rate of 161 beats per minute. IMPRESSION: Single intrauterine gestation in vertex presentation with cardiac activity identified. The posterior/fundal placenta demonstrates a rounded foci of increased echogenicity, possibly represe nting placental calcification for which short-term follow-up is recommended, as calcifications prior to 36 weeks of gestation can lead to maternal and complication. Reviewed, dictated and finalized at location A. IMPRESSION: Single intrauterine gestation in vertex presentation with cardiac activit y identified. The posterior/fundal placenta demonstrates a rounded foci of increased echogeni city, possibly representing placental calcification for which short-term follow -up is recommended, as calcifications prior to 36 weeks of gestation can lead t o maternal and complication.
[2024-08-27] MEDS: LACTATED RINGERS 1,000 ML 999 ML IV CONT (10:04)
[2024-08-27] MEDS: DEXTROSE 50% 25 GM/50 ML SYRINGE IV PUSH (10:06)
--- NOTE | 2024-08-27 10:36 | PM.IMHP ---
H&P: HPI History of Present Illness Date/Time: 08/27/24 10:36 Chief Complaint: Abdominal pain Narrative: 29 y/o at 32 weeks with essentially no care. She was seen here on 07/17 and had a positive antitreponemal antibody. She was given PCN for syphilis and was able to go home. I have seen her in follow up in the office, where I also treated her with Flagyl PO for trichomonas. She says she uses marijuana, but says people have been lacing the drug with other drugs. She called EMS herself today and was brought in by ambulance. She has been intermittently conversant. The ED physician was called and was able to talk with her, but when I arrived, she was not verbally responding. She did nod yes or no to questions. Says her last MJ use was 2 days ago. Review of Systems Review of Systems: All systems reviewed & are unremarkable except as noted in HPI and below PMFSH Past Medical History Medical History Antepartum syphilis Polysubstance abuse No care in current Surgical History Surgical History H/O section Social History Social History Smoking status: Never smoker Alcohol intake: never Substance use: former Substance use type: marijuana Do You Feel Safe in your Home?: No Lack of Transportation: YES Lack of Food: Sometimes True Current Housing: I Do Not Have Housing Concerned About Future Housing: YES Difficulty Paying Gas/Electric Bills: YES Difficulty Paying for Meds: YES Currently Unemployed: YES Education: High School Diploma/GED Difficulty w/ Childcare or Family Care: YES Gender identity (if verbalized by the patient): Female Meds Home Medications and Allergies Home Medications ?Medication ?Instructions ?Recorded ?Confirmed ?Type No Home Medications 08/05/24 08/05/24 History sertraline 50 mg tablet (Zoloft) 50 mg PO DAILY #30 tabs 08/05/24 Rx Allergies Allergy/AdvReac Type Severity Reaction Status Date / Time No Known Allergies Allergy Verified 08/05/24 14:18 Vital Signs Vital Signs - 24 hr 08/27/24 10:05 08/27/24 10:06 08/27/24 10:11 Pulse Rate 91 Blood Pressure 144/91 H Pulse Oximetry 100 100 08/27/24 10:16 08/27/24 10:21 08/27/24 10:27 Pulse Rate Blood Pressure Pulse Oximetry 100 100 100 08/27/24 10:27 08/27/24 10:27 08/27/24 10:29 Pulse Rate Blood Pressure Pulse Oximetry 99 97 99 08/27/24 10:30 Pulse Rate 70 Blood Pressure 140/86 Pulse Oximetry Exam Const: Other: Well-developed, well-nourished female in bed, nodding yes or no to questions, but not currently responding verbally. (Though she has intermittently in the last hour). Resp: Effort & Inspection: normal respiratory effort Auscultation: clear to auscultation bilaterally Cardio: Rate: regular rate Rhythm: regular rhythm Heart sounds: S1 normal heart sound present and S2 normal heart sound present GI: Other: ABD: Soft, nontender, nondistended, gravid. No guarding or rebound tenderness. No hepatosplenomegaly. Bedside ultrasound by me shows ayala IUP in cephalic presentation, posterior fundal placenta, adequate AFV. NST 150 good variability. TOCO: rare contractions. : Other: Cervix closed per RN. RomPlus neg. Neuro: General: moves all extremities and deep tendon reflexes 2+ bilaterally Extrem: Other: Extremities: nontender with no edema Assessment and Plan Assessment and plan (1) No care in current : Code(s): O09.30 - Supervision of with insufficient care, unspecified trimester Status: Acute Assessment and Plan: A: IUP at approximately 32 weeks with abdominal pain, no evidence of labor. Mental status changes, suspect substance abuse as opposed to preeclampsia or seizure. P: IVF, head CT, labs. (2) Polysubstance abuse: Code(s): F19.10 - Other psychoactive substance abuse, uncomplicated Status: Acute (3) Antepartum syphilis: Code(s): O98.119 - Syphilis complicating , unspecified trimester Status: Acute
[2024-08-27 10:37] LABS: Basophils Percent Auto 0.2 % (0.2-1.2); Eosinophils Absolute Auto 0.1 K/mm3 (0-0.3); Eosinophils Percent Auto 0.8 % (0-4.4); Hematocrit 32.3 % (37.0-47.0); Hemoglobin 10.5 g/dL (12.0-15.0); Immature Granulocyte Absolute 0.03 K/mm3 (0.00-0.031); Immature Granulocyte Percent A 0.5 % (0-0.5); Lymphocytes Absolute Auto 2.63 K/mm3 (0.9-3.2); Lymphocytes Percent Auto 40.2 % (18.3-44.2); Mean Corpuscular HGB Conc 32.5 g/dl (32-36); Mean Corpuscular Hemoglobin 30.2 pg (26-34); Mean Corpuscular Volume 92.8 fl (80-100); Mean Platelet Volume 8.9 fl (7.4-10.4); Monocytes Absolute Auto 0.3 K/mm3 (0.1-0.6); Monocytes Percent Auto 4.1 % (2.6-8.5); Neutrophils Absolute Auto 3.6 K/mm3 (1.3-6.7); Neutrophils Percent Auto 54.2 % (45.5-73.1); Platelet Count Result 398 k/mm3 (150-375); Red Blood Count 3.48 M/mm3 (4.2-5.4); Red Cell Distribution Width 13.5 % (11.5-14.5); White Blood Count 6.6 K/mm3 (4.5-10.0)
[2024-08-27 10:42] LABS: Add Urine Microscopic? YES; Appearance Urine Clear (Clear); Bacteria Urine None Seen /hpf; Bilirubin Urine Negative (Negative); Blood Urine Negative (Negative); Color Urine Yellow (Yellow); Glucose Urine UA 2+ mg/dL (Negative); Ketones Urine Negative (Negative); Leukocyte Esterase Ur 2+ LEU/UL (Negative); Nitrate Urine Negative (Negative); Non Pathogenic Casts 0-2; Protein Urine Negative (Negative); Specific Grav Ur 1.018 (1.001-1.035); Squamous Epithelial Cell Urine Occasional /hpf (Few); pH Urine 7.5 (5.0-9.0)
[2024-08-27 10:48] LABS: Alanine Aminotransferase 12 U/L (6-35); Albumin Level 3.4 g/dL (3.5-5.1); Alkaline Phosphatase 142 U/L (38-126); Anion Gap 10 mmol/L (4-12); Aspartate Amino Transferase 28 U/L (14-36); Bilirubin,Total 0.3 mg/dL (0.2-1.3); Blood Urea Nitrogen 5 mg/dL (7-17); Calcium 8.4 mg/dL (8.4-10.2); Carbon Dioxide 16 mmol/L (22-30); Chloride 104 mmol/L (98-107); Estimated Glomerular Filt Rate > 60; Glucose 266 mg/dL (65-110); Potassium 3.5 mmol/L (3.4-5.0); Sodium 130 mmol/L (137-145); Total Protein 6.9 g/dL (6.3-8.2)
[2024-08-27 11:00] LABS: Amphetamine Screen Urine Negative (Negative); Barbiturate Screen Urine Negative (Negative); Benzodiazepines Screen Urine Negative (Negative); Cannabinoid Screen Urine Positive (Negative); Cocaine Screen Urine Negative (Negative); Methadone Screen Urine Negative (Negative); Opiate Screen Urine Negative (Negative); Phencyclidine Screen Urine Negative (Negative)
--- NOTE | 2024-08-27 11:10 | P.PNED_ITS ---
Subjective Date/time seen: 08/27/24 11:10 Interval history: 29-year-old female that is approximately 8 months presenting via EMS for complaint lower abdominal cramping. In route EMS stated that the patient had a drop in her blood pressure and had decreased responsiveness. Patient was still [facility]. I did check on the patient at OB. Patient was sedate appearing but did respond to verbal stimuli. Patient was able to provide some history. Patient states that she was having some abdominal cramping last night did have some blood-tinged mucus suspects that she lost her mucus plug last night. Patient states that she was unable to present to the emergency department last night because she needed childcare but that her brother agreed to watch the children today. Patient states she was having some lower abdominal discomfort along with some right- sided abdominal pain. Patient initially declined having any chest pain but did admit to chest pain when the nurse to ask. Patient states that she last used marijuana approximately 2 days ago. Patient did take her sertraline this morning. Patient denies any other drug use. Patient's blood pressure was reportedly in the 90 systolic with EMS. At time my initial evaluation patient's blood pressure was 140s over 90s. Patient's heart rate was 91. Patient was saturating at% on room air. Review of Systems Review of Systems All systems reviewed & are unremarkable except as noted in HPI and below Exam Narrative APPEARANCE: Sedated appearing but responsive to voice and follow commands HEAD: normocephalic, atraumatic. EYES: PERRLA/EOMI, conjunctivae clear. NOSE: Normal no drainage EARS:TMS clear with good light reflex. THROAT: Pharynx clear, no exudate. NECK: Supple. No adenopathy, no masses. RESPIRATORY: Airway patent, respirations nonlabored. Clear to auscultation bilaterally, no rales, rhonchi, wheezing. CARDIOVASCULAR: Regular rate and rhythm without murmurs rubs or gallops. ABDOMINAL: Soft nontender gravid abdomen MUSCULOSKELETAL: Moves all extremities. Strength/ROM intact, No edema, No calf tenderness. NEURO: Alert. Cranial nerves II through XII intact. Good gait. Good coordination SKIN: Warm, dry. Normal Color Objective Data Vital Signs Vital Signs: Vital Signs - 24 hr 08/27/24 10:05 08/27/24 10:06 08/27/24 10:11 Pulse Rate 91 Blood Pressure 144/91 H Pulse Oximetry 100 100 08/27/24 10:16 08/27/24 10:21 08/27/24 10:27 Pulse Rate Blood Pressure Pulse Oximetry 100 100 100 08/27/24 10:27 08/27/24 10:27 08/27/24 10:29 Pulse Rate Blood Pressure Pulse Oximetry 99 97 99 08/27/24 10:30 08/27/24 10:54 08/27/24 10:55 Pulse Rate 70 72 Blood Pressure 140/86 140/83 Pulse Oximetry 98 100 08/27/24 11:00 08/27/24 11:05 08/27/24 11:10 Pulse Rate 73 Blood Pressure 140/90 Pulse Oximetry 100 100 100 08/27/24 11:15 08/27/24 11:20 08/27/24 11:25 Pulse Rate 75 Blood Pressure 121/61 Pulse Oximetry 100 100 100 08/27/24 11:30 08/27/24 11:35 08/27/24 11:43 Pulse Rate 73 Blood Pressure 132/68 Pulse Oximetry 100 100 98 Meds/Results Medications: Active Medications Generic Name Dose Route Start Last Admin Trade Name Freq PRN Reason Stop Dose Admin Acetaminophen 1,000 mg 08/27/24 11:08 08/27/24 11:28 Acetaminophen 500 Mg Tablet PO 1,000 mg Q6H PRN Administration Headache Metronidazole 500 mg 08/27/24 17:00 Metronidazole 500 Mg Tablet PO BID ARIEL Radiology Results: ITS Impressions Head CT 08/27/24 10:46 IMPRESSION: 1. No acute intracranial abnormality. Labs Labs: Laboratory Results - last 24 hr 08/27/24 08/27/24 10:28 10:31 WBC 6.6 RBC 3.48 L Hgb 10.5 L Hct 32.3 L MCV 92.8 MCH 30.2 MCHC 32.5 RDW 13.5 Plt Count 398 H MPV 8.9 Immature Gran % (Auto) 0.5 Neut % (Auto) 54.2 Lymph % (Auto) 40.2 [place] % (Auto) 4.1 Eos % (Auto) 0.8 Baso % (Auto) 0.2 Lymph # (Auto) 2.63 [place] # (Auto) 0.3 Eos # (Auto) 0.1 Baso # (Auto) 0.0 Abs Immat Gran (auto) 0.03 Absolute Neuts (auto) 3.6 Absolute Nucleated RBC 0.000 Nucleated RBC % 0.0 Sodium 130 L Potassium 3.5 Chloride 104 Carbon Dioxide 16 L Anion Gap 10 BUN 5 L Creatinine 0.59 L Estim Creat Clear Calc Not Reportable Estimated GFR > 60 Glucose 266 H Uric Acid 3.0 Calcium 8.4 Total Bilirubin 0.3 AST 28 ALT 12 Alkaline Phosphatase 142 H Total Protein 6.9 Albumin 3.4 L Urine Color Yellow Urine Appearance Clear Urine pH 7.5 Ur Specific [place] 1.018 Urine Protein Negative Urine Glucose (UA) 2+ H Urine Ketones Negative Ur Blood (Man) Negative Urine Nitrate Negative Urine Bilirubin Negative Urine Urobilinogen 1.0 Leukocyte Esterase Rfl 2+ H Urine RBC 3-5 H Urine WBC 11-20 H Ur Squamous Epith Cells Occasional Urine Bacteria None seen Urine Casts 0-2 Urine Opiates Screen Negative Urine Methadone Screen Negative Ur Barbiturates Screen Negative Ur Phencyclidine Scrn Negative Ur Amphetamine Screen Negative U Benzodiazepines Scrn Negative Urine Cocaine Screen Negative U Cannabinoids Screen Positive A Progress Note: A&P Assessment and Plan (1) Polysubstance abuse: Code(s): F19.10 - Other psychoactive substance abuse, uncomplicated Status: Acute (2) Hypotension: Code(s): I95.9 - Hypotension, unspecified Status: Acute Assessment and Plan: Patient's blood pressure was improved at time of evaluation. Plan At time of initial evaluation patient is blood glucose was 65 and patient had not eaten anything today. Patient was treated with a L of lactated Ringer's along with an amp of D50. Shortly after my evaluation OB Gyne, Dr. Berry, arrived and I provided my patient report. Patient was stable and well appearing when I handed patient care to OB Gyne. Time Spent With Patient Time: 20 minutes
[2024-08-27] MEDS: ACETAMINOPHEN 500 MG TABLET 1000 MG PO ×2 (11:28→19:35)
--- NOTE | 2024-08-27 11:49 | P.PNOB_ITS ---
Pain Control Date/time seen: 08/27/24 11:49 She returned from [place] lucid and conversant. She is worried that the syphilis has affected her internal organs. She is worried that people think she is a crack head. She has no pain currently. AVSS (bp initially 140/80, but now 132/68 SaO2 100% ABD soft, nontender CT of head - no acute change UDS pos for cannabinoids Sodium 130. Stopped IVF. Initial glc 65, was 266 after 1 ampule D50. Clinically stable at present, not sure why the initial mental status changes. Have placed a call to [facility] by phone -- awaiting response.
--- NOTE | 2024-08-27 12:47 | OBADM ---
This patient, Viktor Spencer, admitted to the OB room 106 for observation. Patient/family oriented to hospital policies and general routines including ID bracelet, bed and alarms, visiting hours, pain management, procedures, bathroom and other care routines, personal items, smoking policy, room service/diet, and visiting hours. Patient/Family are encouraged to report perceived risks to care and to ask questions if they do not understand what they are told or what they should do.
[2024-08-27 13:24] LABS: Chlamydia trachomatis NOT DETECTED (NOT DETECTE); Neisseria gonorrhoeae PCR NOT DETECTED (NOT DETECTE)
[2024-08-27] MEDS: PENICILLIN G BENZATHINE 2,400,000 UNITS/4 ML SYRINGE 2400000 UNITS IM (13:36)
[2024-08-27] MEDS: metroNIDAZOLE 500 MG TABLET PO ×2 (13:54→19:36)
[2024-08-27] MEDS: NIFEdipine 10 MG CAPSULE PO (17:34)
[2024-08-27] MEDS: SERTRALINE HCL 50 MG TABLET PO (19:36)
[2024-08-27] MEDS: ZOLPIDEM TARTRATE (*CRX) 5 MG TABLET PO (19:40)
[2024-08-27 19:56] LABS: OBXCEM ROM Plus Negative (Negative)
[2024-08-28] VITALS (22 sets, daily range): BP systolic 119–139; BP diastolic 74–94; PULSE 65–95; RESP 16; TEMP 36.6–36.8; O2SAT 100
[2024-08-28] MEDS: METOCLOPRAMIDE HCL INJ 10 MG/2 ML VIAL IV PUSH (01:21)
[2024-08-28] MEDS: diphenhydrAMINE HCl INJ 50 MG/ML VIAL 25 MG IV PUSH (01:22)
--- NOTE | 2024-08-28 08:34 | P.PNOB_ITS ---
OB - PN: Subj Subjective Date/time seen: 08/28/24 08:34 Comfortable. No pain. Yesterday I had reviewed her case by phone with FLACO at [facility] to clarify treatment of syphilis, as she has not yet been seen as an outpatient by their service. He recommended weekly treatments x 3. AVSS ABD soft, nontender, gravid EXT nontender A: contractions, resolved. Syphilis, treated with PCN. P: Home to f/u for weekly PCN x 3 total doses. Reviewed instructions and precautions. F/u as scheduled in office. OB - PN: Obj Data Labs 08/27/24 10:28 08/27/24 10:28 Labs: Laboratory Results - last 24 hr 08/27/24 08/27/24 08/27/24 10:26 10:28 10:29 WBC 6.6 RBC 3.48 L Hgb 10.5 L Hct 32.3 L MCV 92.8 MCH 30.2 MCHC 32.5 RDW 13.5 Plt Count 398 H MPV 8.9 Immature Gran % (Auto) 0.5 Neut % (Auto) 54.2 Lymph % (Auto) 40.2 [place] % (Auto) 4.1 Eos % (Auto) 0.8 Baso % (Auto) 0.2 Lymph # (Auto) 2.63 [place] # (Auto) 0.3 Eos # (Auto) 0.1 Baso # (Auto) 0.0 Abs Immat Gran (auto) 0.03 Absolute Neuts (auto) 3.6 Absolute Nucleated RBC 0.000 Nucleated RBC % 0.0 Sodium 130 L Potassium 3.5 Chloride 104 Carbon Dioxide 16 L Anion Gap 10 BUN 5 L Creatinine 0.59 L Estim Creat Clear Calc Not Reportable Estimated GFR > 60 Glucose 266 H Uric Acid 3.0 Calcium 8.4 Total Bilirubin 0.3 AST 28 ALT 12 Alkaline Phosphatase 142 H Total Protein 6.9 Albumin 3.4 L Urine Color Urine Appearance Urine pH Ur Specific [place] Urine Protein Urine Glucose (UA) Urine Ketones Ur Blood (Man) Urine Nitrate Urine Bilirubin Urine Urobilinogen Leukocyte Esterase Rfl Urine RBC Urine WBC Ur Squamous Epith Cells Urine Bacteria Urine Casts Membranes Rupture Rom plus negative Urine Opiates Screen Negative Urine Methadone Screen Negative Ur Barbiturates Screen Negative Ur Phencyclidine Scrn Negative Ur Amphetamine Screen Negative U Benzodiazepines Scrn Negative Urine Cocaine Screen Negative U Cannabinoids Screen Positive A C. trachomatis (PCR) Not detected N. gonorrhoeae (PCR) Not detected 08/27/24 10:31 WBC RBC Hgb Hct MCV MCH MCHC RDW Plt Count MPV Immature Gran % (Auto) Neut % (Auto) Lymph % (Auto) [place] % (Auto) Eos % (Auto) Baso % (Auto) Lymph # (Auto) [place] # (Auto) Eos # (Auto) Baso # (Auto) Abs Immat Gran (auto) Absolute Neuts (auto) Absolute Nucleated RBC Nucleated RBC % Sodium Potassium Chloride Carbon Dioxide Anion Gap BUN Creatinine Estim Creat Clear Calc Estimated GFR Glucose Uric Acid Calcium Total Bilirubin AST ALT Alkaline Phosphatase Total Protein Albumin Urine Color Yellow Urine Appearance Clear Urine pH 7.5 Ur Specific [place] 1.018 Urine Protein Negative Urine Glucose (UA) 2+ H Urine Ketones Negative Ur Blood (Man) Negative Urine Nitrate Negative Urine Bilirubin Negative Urine Urobilinogen 1.0 Leukocyte Esterase Rfl 2+ H Urine RBC 3-5 H Urine WBC 11-20 H Ur Squamous Epith Cells Occasional Urine Bacteria None seen Urine Casts 0-2 Membranes Rupture Urine Opiates Screen Urine Methadone Screen Ur Barbiturates Screen Ur Phencyclidine Scrn Ur Amphetamine Screen U Benzodiazepines Scrn Urine Cocaine Screen U Cannabinoids Screen C. trachomatis (PCR) N. gonorrhoeae (PCR) Imaging Radiologist's impression: Impressions Head CT 08/27/24 10:46 IMPRESSION: 1. No acute intracranial abnormality. Obstetrics Ultrasound 08/27/24 15:35 IMPRESSION: Single intrauterine gestation in vertex presentation with cardiac activity identified. The posterior/fundal placenta demonstrates a rounded foci of increased echogenicity, possibly representing placental calcification for which short-term follow-up is recommended, as calcifications prior to 36 weeks of gestation can lead to maternal and complication.
[2024-08-28] MEDS: SERTRALINE HCL 50 MG TABLET PO (11:21)
[2024-08-28] MEDS: metroNIDAZOLE 500 MG TABLET PO (11:21)
--- NOTE | 2024-08-28 11:46 | PCCCNOTE ---
Call received from nursing staff requesting we assist pt with transportation issues. She was given the list of [employer] phone numbers she can call to coordinate transportation and the nursing staff given a cab voucher to [facility] and then to home at time of discharge.
[2024-08-29 08:44] LABS: Glucose Point of Care 65 mg/dl (65-105)
--- NOTE | 2024-09-11 09:47 | PM.OBTRLD ---
OB - Triage/Final Diagnosis Visit Information Comments/Additional reasons for admission: I have assessed the risk for this patient, Viktor Spencer, and determined that she would benefit from observation care. Evaluation Laboratory results: Laboratory Tests 08/27/24 08/27/24 08/27/24 09:54 10:26 10:28 WBC 6.6 RBC 3.48 L Hgb 10.5 L Hct 32.3 L MCV 92.8 MCH 30.2 MCHC 32.5 RDW 13.5 Plt Count 398 H MPV 8.9 Immature Gran % (Auto) 0.5 Neut % (Auto) 54.2 Lymph % (Auto) 40.2 [place] % (Auto) 4.1 Eos % (Auto) 0.8 Baso % (Auto) 0.2 Lymph # (Auto) 2.63 [place] # (Auto) 0.3 Eos # (Auto) 0.1 Baso # (Auto) 0.0 Abs Immat Gran (auto) 0.03 Absolute Neuts (auto) 3.6 Absolute Nucleated RBC 0.000 Nucleated RBC % 0.0 Sodium 130 L Potassium 3.5 Chloride 104 Carbon Dioxide 16 L Anion Gap 10 BUN 5 L Creatinine 0.59 L Estim Creat Clear Calc Not Reportable Estimated GFR > 60 Glucose 266 H POC Capillary Glucose 65 Uric Acid 3.0 Calcium 8.4 Total Bilirubin 0.3 AST 28 ALT 12 Alkaline Phosphatase 142 H Total Protein 6.9 Albumin 3.4 L Urine Color Urine Appearance Urine pH Ur Specific [place] Urine Protein Urine Glucose (UA) Urine Ketones Ur Blood (Man) Urine Nitrate Urine Bilirubin Urine Urobilinogen Leukocyte Esterase Rfl Urine RBC Urine WBC Ur Squamous Epith Cells Urine Bacteria Urine Casts Membranes Rupture Urine Opiates Screen Negative Urine Methadone Screen Negative Ur Barbiturates Screen Negative Ur Phencyclidine Scrn Negative Ur Amphetamine Screen Negative U Benzodiazepines Scrn Negative Urine Cocaine Screen Negative U Cannabinoids Screen Positive A C. trachomatis (PCR) Not detected N. gonorrhoeae (PCR) Not detected 08/27/24 08/27/24 10:29 10:31 WBC RBC Hgb Hct MCV MCH MCHC RDW Plt Count MPV Immature Gran % (Auto) Neut % (Auto) Lymph % (Auto) [place] % (Auto) Eos % (Auto) Baso % (Auto) Lymph # (Auto) [place] # (Auto) Eos # (Auto) Baso # (Auto) Abs Immat Gran (auto) Absolute Neuts (auto) Absolute Nucleated RBC Nucleated RBC % Sodium Potassium Chloride Carbon Dioxide Anion Gap BUN Creatinine Estim Creat Clear Calc Estimated GFR Glucose POC Capillary Glucose Uric Acid Calcium Total Bilirubin AST ALT Alkaline Phosphatase Total Protein Albumin Urine Color Yellow Urine Appearance Clear Urine pH 7.5 Ur Specific [place] 1.018 Urine Protein Negative Urine Glucose (UA) 2+ H Urine Ketones Negative Ur Blood (Man) Negative Urine Nitrate Negative Urine Bilirubin Negative Urine Urobilinogen 1.0 Leukocyte Esterase Rfl 2+ H Urine RBC 3-5 H Urine WBC 11-20 H Ur Squamous Epith Cells Occasional Urine Bacteria None seen Urine Casts 0-2 Membranes Rupture Rom plus negative Urine Opiates Screen Urine Methadone Screen Ur Barbiturates Screen Ur Phencyclidine Scrn Ur Amphetamine Screen U Benzodiazepines Scrn Urine Cocaine Screen U Cannabinoids Screen C. trachomatis (PCR) N. gonorrhoeae (PCR) Final Diagnosis (1) False labor: Code(s): O47.9 - False labor, unspecified Status: Acute
== END 2024-08-28 11:38 | disposition home or self-care (01) ==
PROVIDERS: Admitting Provider Obstetrics & Gynecology; Visit Provider Obstetrics & Gynecology
DX: O47.03 False labor before 37 completed weeks of gestation, third trimester (principal); O09.33 Supervision of pregnancy with insufficient antenatal care, third trimester; O98.113 Syphilis complicating pregnancy, third trimester; A53.9 Syphilis, unspecified; O26.53 Maternal hypotension syndrome, third trimester; O99.323 Drug use complicating pregnancy, third trimester; F19.10 Other psychoactive substance abuse, uncomplicated; O26.893 Other specified pregnancy related conditions, third trimester; R41.82 Altered mental status, unspecified; Z3A.32 32 weeks gestation of pregnancy
CPT/HCPCS: 36415; 70450; 76815; 80053; 80307; 81001; 82948; 84112; 84550; 85025; 87086; 87491; 87591; 96374; 96375; A9270; G0378; G0379; J0561; J1200; J2765; J7120

== ENCOUNTER 2024-09-09 14:02 | Observation (INO) | payer MEDICAID, SELFPAY ==
--- NOTE | 2024-09-09 17:32 | OBADM ---
This patient, Viktor Spencer, admitted to the OB room 111 for observation. Pt arrived on the unit earlier today and received care under a recurring V# [id number] for a dose of PCN and NST. When variable decels and a prolonged decel were noted, a BPP of 8/8 and XOCHITL of 14.1cm was obtained. Pt was changed to observation status for continued monitoring overnight. Patient/family oriented to hospital policies and general routines including ID bracelet, bed and alarms, visiting hours, pain management, procedures, bathroom and other care routines, personal items, smoking policy, room service/diet, and visiting hours. Patient/Family are encouraged to report perceived risks to care and to ask questions if they do not understand what they are told or what they should do.
[2024-09-09 18:00] VITALS: BP 121/82; PULSE 70; TEMP 36.6
[2024-09-09 19:00] VITALS: BP 122/84; PULSE 73
--- NOTE | 2024-09-09 19:53 | OBADM ---
This patient, Viktor Spencer, admitted to the OB room OB Post 111 for observation. Patient/family oriented to hospital policies and general routines including ID bracelet, bed and alarms, visiting hours, pain management, procedures, bathroom and other care routines, personal items, smoking policy, room service/diet, and visiting hours. Patient/Family are encouraged to report perceived risks to care and to ask questions if they do not understand what they are told or what they should do.
[2024-09-09 20:00] VITALS: BP 113/70; PULSE 70
[2024-09-09] MEDS: hydrOXYzine HCL 25 MG TABLET PO (20:35)
[2024-09-09 21:18] VITALS: BP 123/93; PULSE 65
[2024-09-09 22:00] VITALS: BP 136/88; PULSE 70
[2024-09-09] MEDS: diphenhydrAMINE HCl CAP 25 MG CAPSULE 50 MG PO (22:59)
[2024-09-09 23:04] VITALS: TEMP 36.6
[2024-09-10] MEDS: ACETAMINOPHEN 500 MG TABLET 1000 MG PO (02:39)
[2024-09-10] MEDS: ONDANSETRON HCL ODT 4 MG TABLET PO (02:46)
[2024-09-10 03:42] VITALS: BP 99/67; PULSE 61; RESP 16; TEMP 36.4
[2024-09-10 04:30] VITALS: BMI 25.9
[2024-09-10 07:54] VITALS: BP 119/78; PULSE 68
[2024-09-10 07:56] VITALS: TEMP 36.3
--- NOTE | 2024-09-10 09:33 | PM.IMHP ---
H&P: HPI History of Present Illness Date/Time: 09/10/24 09:33 Chief Complaint: decelerations Narrative: 29-year-old 4 para 3 admitted for observation due to prolonged deceleration of 6minutes. Patient was being seen for her last dose of penicillin for or syphilis treatment and for a nonstress test. While being monitored she had a prolonged 6minute deceleration down to the 90s. Remainder of the strip showed great accelerations and variability with occasional variable decelerations. Biophysical profile was 8/8 and XOCHITL was 14. Patient was monitored overnight. Patient had a 4minute deceleration and a few 2minute decelerations as well as continued occasional variables. Options were discussed with the patient and she has elected to proceed with transfer to [facility]. Review of Systems Review of Systems: All systems reviewed & are unremarkable except as noted in HPI and below (HPI) [facility] Past Medical History Medical History (Updated 09/10/24 @ 09:38 by Pily Abel MD) History of 3 Orthostatic hypotension Antepartum syphilis Polysubstance abuse Marijuana and amphetamines positive August 07 No care in current care established in early July with Dr. Berry Surgical History Surgical History (Updated 09/10/24 @ 09:38 by Pily Abel MD) H/O section 1 and 2 Social History Social History Smoking status: Never smoker Alcohol intake: never Substance use: former Substance use type: marijuana Do You Feel Safe in your Home?: Yes Lack of Transportation: YES Lack of Food: Sometimes True Current Housing: I Do Not Have Housing Concerned About Future Housing: YES Difficulty Paying Gas/Electric Bills: YES Difficulty Paying for Meds: YES Currently Unemployed: YES Education: High School Diploma/GED Difficulty w/ Childcare or Family Care: YES Gender identity (if verbalized by the patient): Female Meds Home Medications and Allergies Home Medications ?Medication ?Instructions ?Recorded ?Confirmed ?Type sertraline 50 mg tablet (Zoloft) 50 mg PO DAILY #30 tabs 08/05/24 09/09/24 Rx acetaminophen 500 mg tablet 1,000 mg (2 x 500 mg) PO Q6H PRN 08/28/24 09/09/24 Rx Headache #1 tablet metronidazole 500 mg tablet 500 mg PO BID #14 tabs 08/28/24 09/09/24 Rx Allergies Allergy/AdvReac Type Severity Reaction Status Date / Time No Known Allergies Allergy Verified 09/09/24 19:52 Vital Signs Vital Signs - 24 hr 09/09/24 18:00 09/09/24 19:00 09/09/24 20:00 Temperature 97.8 F Pulse Rate 70 73 70 Respiratory Rate Blood Pressure 121/82 122/84 113/70 Oxygen Delivery 09/09/24 21:18 09/09/24 22:00 09/09/24 23:04 Temperature 97.9 F Pulse Rate 65 70 Respiratory Rate Blood Pressure 123/93 H 136/88 Oxygen Delivery 09/10/24 03:42 09/10/24 07:54 09/10/24 07:54 Temperature 97.6 F Pulse Rate 61 68 Respiratory Rate 16 Blood Pressure 99/67 L 119/78 Oxygen Delivery Room Air 09/10/24 07:56 Temperature 97.4 F L Pulse Rate Respiratory Rate Blood Pressure Oxygen Delivery Exam Const: General: healthy appearing, comfortable and no acute distress Resp: Effort & Inspection: normal respiratory effort GI: Inspection: other (Gravid) GI Palp: No abdominal tenderness and Yes Soft to palpation Auscultation: other (See HPI for description of heart tones) Assessment and Plan Assessment and plan (1) heart rate decelerations affecting management of mother: Code(s): O36.8390 - Maternal care for abnormalities of the heart rate or rhythm, unspecified trimester, not applicable or unspecified Status: Acute Assessment and Plan: 34 weeks with prolonged decelerations occurring randomly. Patient to be transferred to [facility] (2) Antepartum syphilis: Code(s): O98.119 - Syphilis complicating , unspecified trimester Status: Acute Assessment and Plan: status post treatment with penicillin G Last titer 1:8 (3) No care in current : Code(s): O09.30 - Supervision of with insufficient care, unspecified trimester Status: Acute Assessment and Plan: Minimal care starting in late July (4) H/O section: Code(s): Z98.891 - History of uterine scar from previous surgery Status: Acute Assessment and Plan: x2 with subsequent
[2024-09-10 10:54] VITALS: BP 128/87; PULSE 105
--- NOTE | 2024-09-10 11:35 | PC.NURSE ---
1045 EMS arrived via ambulance. Gave report to EMS at [facility]. Pt transferred to [facility] clinic to be transferred to [place].
--- NOTE | 2024-09-12 08:48 | PM.TDS ---
Transfer Discharge Sum: Prov Provider Date of admission: 09/09/24 14:02 Primary care physician: [employer] Admitting clinician: Pily Abel MD Attending physician on admission: Chintan Berry Attending physician on discharge: Chintan Berry Discharging clinician: Pily Abel Anticipated date of transfer: 09/10/24 Receiving physician/facility: [facility] DS: Admitting Diagnosis Discharge Date 09/10/24 Admitting Diagnosis Syphillis decelerations DS: Discharge Diagnosis Discharge Diagnosis (1) heart rate decelerations affecting management of mother: Code(s): O36.8390 - Maternal care for abnormalities of the heart rate or rhythm, unspecified trimester, not applicable or unspecified Status: Acute (2) H/O section: Code(s): Z98.891 - History of uterine scar from previous surgery Status: Acute (3) Polysubstance abuse: Code(s): F19.10 - Other psychoactive substance abuse, uncomplicated Status: Acute (4) Antepartum syphilis: Code(s): O98.119 - Syphilis complicating , unspecified trimester Status: Acute Transfer Discharge Sum: Med Medications Active and Home Medications: Home Medications sertraline 50 mg tablet (Zoloft) 50 mg PO DAILY #30 tabs 08/05/24 [Rx Confirmed 09/09/24] acetaminophen 500 mg tablet 1,000 mg (2 x 500 mg) PO Q6H PRN Headache #1 tablet 08/28/24 [Rx Confirmed 09/09/24] metronidazole 500 mg tablet 500 mg PO BID #14 tabs 08/28/24 [Rx Confirmed 09/09/24] Transfer Discharge Sum: Hosp Hospital Course Hospital course: Viktor Spencer is a 29 year old female 4 para 3 admitted for observation due to prolonged deceleration of 6minutes. Patient was being seen for her last dose of penicillin for or syphilis treatment and for a nonstress test. While being monitored she had a prolonged 6minute deceleration down to the 90s. Remainder of the strip showed great accelerations and variability with occasional variable decelerations. Biophysical profile was 8/8 and XOCHITL was 14. Patient was monitored overnight. Patient had a 4minute deceleration and a few 2minute decelerations as well as continued occasional variables. Options were discussed with the patient and she has elected to proceed with transfer to [facility]. Patient Condition: Serious Time Spent with Patient Time attestation: Total time spent providing and/or coordinating transfer services:
== END 2024-09-10 10:45 | disposition short-term general hospital (02) ==
PROVIDERS: Admitting Provider Obstetrics & Gynecology Gynecology; Visit Provider Obstetrics & Gynecology Gynecology
DX: O36.8330 Maternal care for abnormalities of the fetal heart rate or rhythm, third trimester, not applicable or unspecified (principal); O98.113 Syphilis complicating pregnancy, third trimester; A53.9 Syphilis, unspecified; O99.323 Drug use complicating pregnancy, third trimester; F19.10 Other psychoactive substance abuse, uncomplicated; O47.03 False labor before 37 completed weeks of gestation, third trimester; O09.33 Supervision of pregnancy with insufficient antenatal care, third trimester; Z3A.34 34 weeks gestation of pregnancy; Z98.891 History of uterine scar from previous surgery
CPT/HCPCS: 76819; 96372; A9270; G0378; G0379; J0561

== ENCOUNTER 2024-09-09 14:02 | Outpatient (RCR) | payer MEDICAID, SELFPAY ==
[2024-09-02] MEDS: PENICILLIN G BENZATHINE 2,400,000 UNITS/4 ML SYRINGE 2400000 UNITS IM (14:22)
--- NOTE | 2024-09-02 15:33 | PCCCNOTE ---
Called to the OB department d/t the pt's transportation through her insurance having dropped her off and not coming back to transport her and her three kids home. Pt stated a bung driver dropped her and her three children off and they had no car seats. Called the number mom gave for transportation of [phone] and found her insurnace is not currently active which this is a [employer]. Called [phone] a [place] Medicaid transportation number and let them know the pt has three children with her. Clary the customer consultant gave 5 numbers of companies which none would transport the pt or children 1.[employer]-[phone]-number is disconnected 2.[id number]-[phone]-Had to [facility] 3.FCIO-[phone]-Do not accept medicaid. [phone] and [facility] 5.P transport [phone]-only open between 7-3, this call was placed at [phone]. Spoke again with the mom, stated she used the minor son's medicaid number to get this transportation. Let mom know we do not have the child's information, if she chose to use this mode it would be up to her to schedule. Updated pt's nurse.-shannen
--- NOTE | ~2024-09-09 | US_ITS ---
EXAMINATION: US OB BPP wo non-stress DATE: 09/09/2024 17:16 INDICATION: heart rate decelerations. Assess amniotic fluid index and biophysical profile durin g third trimester TECHNIQUE: Real-time pelvic ultrasound was performed. The interpreting radiologist was not present fo r the study. COMPARISON: None. FINDINGS: There is a single living fetus in vertex presentation. The placenta is posterior. heart rate i s 132 beats per minute (bpm). Amniotic fluid volume of 14.1 cm which is normal (5th%-95%: 8.3-24.5 cm at 33 weeks estimated gestational age) Biophysical profile performed by the technologist: breathing (30 sec sustained breathing in 30 minutes): 2 out of 2 movement (3 gross body movements in 30 minutes): 2 out of 2 tone (one episode of xhalmlf-dgblfepkh-pnlbjeg limb movement): 2 out of 2 Amniotic fluid pocket (2 cm): 2 out of 2 Total score: 8 out of 8 IMPRESSION: 1. Single living fetus in vertex presentation with heart rate of 132 bpm. 2. Biophysical profile 8 out of 8. 3. Normal amniotic fluid index of 14.1 cm. Reviewed, dictated and finalized at location A.
[2024-09-09] MEDS: PENICILLIN G BENZATHINE 2,400,000 UNITS/4 ML SYRINGE 2400000 UNITS IM (14:33)
[2024-09-09 15:00] VITALS: BP 114/75
--- NOTE | 2024-09-09 15:44 | PC.NURSE ---
Dr. Varsha Tucker returned page and given the history of this pt of Dr. Herrera here for her 3rd dose of PCN G for syphyllis treatment and NST for SGA infant. 15 sec x 15 beat variable decels were noted on initial tracing and extended the monitoring to see if any more occurred when baby had a 4 1/2 min prolonged decel down to 90's. states he has signed off to Dr. Abel for the night and to call her.
--- NOTE | 2024-09-09 15:58 | PC.NURSE ---
Dr. Abel returned page and given the history of this pt of Dr. Herrera here for her 3rd dose of PCN G for syphyllis treatment and NST for SGA infant. 15 sec x 15 beat variable decels were noted on initial tracing and extended the monitoring to see if any more occurred when baby had a 4 1/2 min prolonged decel down to 90's. 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 Pt has multiple social problems including housing, food, transportation, and childcare. I had gotten pt set up with medical transportation services when she was here a couple of weeks ago. Pt currently states her children are with family right now and not an issue and she will have transportation if medical transport is not available. Order received for bedside BPP and XOCHITL.
[2024-09-09 16:00] VITALS: BP 123/84; PULSE 81
[2024-09-09 16:54] VITALS: BP 131/80; PULSE 74
--- NOTE | 2024-09-09 16:54 | PC.NURSE ---
Ultrasound here and monitor removed.
--- NOTE | 2024-09-09 17:10 | PC.NURSE ---
U/S completed. Locker Attendant gave verbal report of BPP 8/8 and XOCHITL of 14 cm. Pt back on monitor.
--- NOTE | 2024-09-09 17:13 | PC.NURSE ---
Dr. Abel returned page and informed BPP 10/21 and XOCHITL 14 per medication assistant. Order received for pt to stay overnight for continuous monitoring.
--- NOTE | 2024-09-09 17:26 | PC.NURSE ---
Pt transferred to room 111 with personal belongings and changed to observation status- see V#[id number] for observation.
--- NOTE | 2024-09-09 19:31 | PC.NURSE ---
Pt voided in bathroom and back on monitor.
== END 2024-09-09 17:27 | disposition short-term general hospital (02) ==
LOC: ANHOBOP 14:02
PROVIDERS: Visit Provider Obstetrics & Gynecology
DX: O98.119 Syphilis complicating pregnancy, unspecified trimester (principal); Z3A.00 Weeks of gestation of pregnancy not specified
CPT/HCPCS: 76819; 96372; J0561

== ENCOUNTER 2024-12-12 11:39 | Emergency (ER) | payer OTHER, SELFPAY ==
[2024-12-12] VITALS (8 sets, daily range): BP systolic 128–149; BP diastolic 84–90; PULSE 94; RESP 20; TEMP 36.7; O2SAT 99–100
--- NOTE | ~2024-12-12 | CT_ITS ---
CT abdomen pelvis w con Clinical History: left sided AP . Comparison: None Technique: Axial images lung bases to symphysis pubis IV contrast information not listed in PACS Coronal, sagittal reformats CT images acquired with automatic exposure control for dose reduction DLP: 412 mGy-cm Findings: Lung bases: Clear. Visualized heart and pericardium: Unremarkable. Liver: Enlarged. Steatosis. Gallbladder: Unremarkable. Spleen: Unremarkable. Pancreas: Unremarkable. Adrenal glands: Unremarkable. Kidneys: Right kidney- No hydronephrosis. No renal stones. Left kidney- No hydronephrosis. No renal stones. Distal esophagus/stomach: Unremarkable. Small bowel loops: Normal caliber and wall thickness. Colon: Normal caliber and wall thickness. Normal RLQ appendix. Nodes: No enlarged nodes. Peritoneum: No ascites. No free air. Urinary bladder: Unremarkable. Uterus: Unremarkable. Adnexa: No masses. Small pelvic free fluid. Bones: No acute bony abnormality. Minimal superior endplate height loss L3. Soft tissues: Unremarkable. Aorta: No aneurysm or dissection. IVC: Unremarkable. Main portal vein/SMV/splenic vein: Patent. IMPRESSION: 1. No acute findings. Reviewed, dictated and finalized at location R. IMPRESSION: 1. No acute findings.
--- OUTSIDE RECORDS SUMMARY | 2024-12-12 12:05 | XMS_ITS | Clinical Summary ---
Author Organization [email or web address] Address [address] [facility] [place] [address] Care Team Providers Care Studio Set Up Worker Name Role Phone Unavailable Primary Care Provider Unavailabl e Source Comments [facility],non-owned Affiliates and Associated Physician Practices is amultiple site organization consisting of ambulatory clinics and hospital sitesin [place], [place], [place] and [place]. This disclosure is being madepursuant to the Care Everywhere program and may not contain all information available regarding this patient. Last updated 17.[email or web address] Allergies No known active allergies Medications * Be aware that medications may not be up to date on this document. Alwaysverify current medications with the patient. Vit-DSS-Fe Fum-FA ( vitamin with iron) tablet Take 1 (one) tablet by mouth once daily Active sertraline (Zoloft) 50 MG tablet Take 1 (one) tablet by mouth once daily Active sertraline (Zoloft) 50 MG tablet Take 1 (one) tablet by mouth once daily 30 tablet 1 5 Active Additional Information Patient not taking.Reason: Other, Reported on 09/22/2024 docusate sodium (Colace) 100 MG capsule Take 1 (one) capsule by mouth once daily 50 capsule 1 5 Active ferrous sulfate 325 (65 FE) MG tablet Take 1 (one) tablet by mouth once daily 60 tablet 2 5 Active Additional Information Patient not taking.Reason: Other, Reported on 09/22/2024 plus iron (Natatab) 29-1 MG tablet Take 1 (one) tablet by mouth once daily 100 tablet 1 Active acetaminophen (Tylenol) 500 MG capsule Take 2 (two) capsules by mouth every 6 hours as needed for Fever or Pain 60 capsule Active ibuprofen (Motrin) 600 MG tablet Take 1 (one) tablet by mouth every 6 hours as needed for Pain 90 tablet 09/15/2024 1:56 PM CDT Active simethicone (Mylicon) 80 MG chew tablet Take 1 (one) tablet by mouth 4 times daily as needed for Gas Pain (chew and swallow) Active Additional Information Patient not taking.Reason: Other, Reported on 09/22/2024 acetaminophen (Tylenol) 325 MG tablet Take 2 (two) tablets by mouth every 4 hours as needed Maximum allowable Acetaminophen amount = 4 Grams (4000 mg) / 24 hours. Active Additional Information Patient not taking.Reason: Other, Reported on 09/22/2024 ibuprofen (Motrin) 600 MG tablet Take 1 (one) tablet by mouth every 6 hours as needed 30 tablet Active Additional Information Patient not taking.Reason: Other, Reported on 09/22/2024 Blood Pressure Monitoring (Adult Blood Pressure Cuff Lg) KIT Monitor and record blood pressure twice a day 1 kit Active Additional Information Patient not taking.Reason: Other, Informant: Patient, Reported on 09/20/2024 NIFEdipine CR 24hr (Adalat CC) 30 MG tablet Take 1 (one) tablet by mouth once daily 30 tablet 1 09/22/2024 9:48 AM CDT 5 Active Active Problems Patient Care Coordination No te Formatting of this note migh t be different from the original. [employer] form completed. Size NB diapers given. Initial OB Visit ~34 weeks 12/27/18 Problem Noted Date Diagnosed Date Nonintractable headache, uns pecified chronicity pattern, unspecified headache type 09/22/2024 Endometritis 09/21/2024 Pre-eclampsia in period 09/20/2024 Pain 09/15/2024 Uterine contractions 09/11/2024 Encounter for supervision of normal , antepartum, unspecified 09/10/2024 Full-term premature rupture of membranes 020 Supervision of normal 12/30/2018 Resolved Problems Problem Noted Date Diagnosed Date Resolved Date Fracture of thumb, closed 11/17/2012 Cervicalgia 11/17/2012 01/09/2019 Encounters Date Type Department Care Team Description 09/27/[address] [address] 09/22/2024 1:56 PM CDT - 09/22/2024 5:00 PM CDT Hospital Encounter [facility] [address] [address] Manpreet Irvin MD Discharge Disposition: Left Against Medical Advice/Discontinued Care 09/22/[address] [address] 09/20/2024 3:24 PM CDT - 09/22/2024 12:31 PM CDT Hospital Encounter [facility] 5E ANTEPARTUM/MOTHER BABY [address] [place] [address] Manpreet Irvin MD Discharge Disposition: Home or Self Care 09/20/2024 4:28 AM CDT - 09/20/2024 7:18 AM CDT Hospital Encounter [facility] [address] [address] Manpreet Irvin MD Discharge Disposition: Home or Self Care 09/20/2024 Travel 09/19/2024 10:30 AM CDT - 09/19/2024 11:59 PM CDT Hospital Encounter [facility] at [address], [address] [place] [phone] Arvind Locke MD Bryant, Kenisha L, ASSISTANT MANAGER PT-SCRAP HOIST OPERATOR Discharge Disposition: Home or Self Care 09/19/2024 9:37 AM CDT - 09/19/2024 10:29 AM CDT Hospital Encounter [facility] at [address], [address] [place] [address] [phone] Arvind Locke MD Discharge Disposition: Home or Self Care 09/19/2024 Travel 09/15/2024 12:46 AM CDT - 09/15/2024 4:56 AM CDT Hospital Encounter [facility] [address] [place] [address] Fredo Carr MD Maternal Medicine Discharge Disposition: Home or Self Care 09/15/2024 Telephone [facility] - INDUSTRIAL PRODUCTION MANAGER [address] [facility] [address] [place] [phone] Basia Reyna APRN-SCRAP HOIST OPERATOR Appointment 09/15/2024 Telephone [facility] MATERNAL/ EVALUATION UNIT [facility] [facility] [place] [address] Priscilla Campos RN Hospital Follow-up 09/14/2024 Orders Only [facility] PHYS OB [address] [place] [address] Daniel Mcfarlane MD S/P 09/14/2024 Orders Only [facility] PHYS OB [address] [place] [address] Daniel Mcfarlane MD S/P 09/12/2024 Telephone [facility] MATERNAL/ EVALUATION UNIT [address] [place] [address]. [address] [place] [phone] Priscilla Campos RN Hospitalization 09/11/2024 10:20 PM CDT - 09/11/2024 11:55 PM CDT Surgery [facility] 5 [place] [address] Marlene Vegas MD SECTION (EMERGENCY) 09/11/2024 10:19 PM CDT Anesthesia Event [facility] 5 [place] [address] Nenita Oliveros MD Lorusso, Chynna T, ASSISTANT MANAGER PT-CRYSTAL GAZER 09/11/2024 7:46 PM CDT - 09/14/2024 5:05 PM CDT Hospital Encounter [facility] 6W MOTHER/BABY [address] [place], [place] [phone] Chintan Berry MD Wendel, Michael, MD INDUSTRIAL PRODUCTION MANAGER Discharge Disposition: Home or Self Care 09/10/2024 11:54 AM CDT - 09/11/2024 1:01 PM CDT Hospital Encounter [facility] 5E ANTEPARTUM/MOTHER BABY [address] [place] [address] Fredo Carr MD Discharge Disposition: Home or Self Care from Last 3 Months Immunizations Immunization Administration Dates Next Due INFLUENZA VACCINE, QUADR. (F LUZONE; FLULAVAL; FLUARIX; AFLURIA QUADRIVALENT; 6MO+), 0.5 ML (IIV4) 12/20/2019(Deferred: Patient Refused) MMR 09/12/2024(), 020(Deferred: - Patient rubella immune) TDAP (7yrs+) 09/12/2024(Deferred: Patient Refused),12/20/2019(Deferred: Patient Refused) Social History Tobacco Use Types Packs/Day Years Used Date Smoking Tobacco: Never Passive Smoke Exposure: Never Smokeless Tobacco: Never Tobacco Cessation:Counseling Given: Yes Alcohol Use Standard Drinks/Week Comments Not Currently 0 (1 standard drink = 0.6 oz pur e alcohol) Overall Financial Resource Strain (CARDIA) Answe r Date Recorded How hard is it for you to pa y for the very basics like food, housing, medical care, and heating? Very hard 09/22/2024 [facility] - Occupational Stress Questionnaire Answer Date Recorded Do you feel stress - tense, restless, nervous, or anxious, or unable to sleep at night because your mind is troubled all the time - these days? Very much 09/22/2024 Hunger Vital Sign Answer Date Recorded Within the past 12 months, y ou worried that your food would run out before you got the money to buy more. Often true 09/23/19 25 Within the past 12 months, t he food you bought just didn't last and you didn't have money to get more. Often true 09/22/2024 [facility] - Transportation Answer Date Re corded In the past 12 months, has l ack of transportation kept you from medical appointments or from getting medications? Yes 09/13 In the past 12 months, has l ack of transportation kept you from meetings, work, or from getting things needed for daily living? Yes 09/22/2024 Jackson Depression Scale Answer Date Recorded Jackson Depression Scale Total 8 09/14/2024 The thought of harming myself has occurred to me . Never 09/14/2024 Housing Stability Vital Sign Answer Jomar e Recorded In the last 12 months, was t here a time when you were not able to pay the mortgage or rent on time? Yes 09/22/2024 In the past 12 months, how m any times have you moved where you were living? 4 09/22/2024 At any time in the past 12 m [facility], were you homeless or living in a custodial (including now)? 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 Gender Identity Female 09/20/2024 2:19 PM CDT Sexual Orientation Straight 09/20/2024 2: 19 PM CDT Last Filed Vital Signs Vital Sign Reading Time Taken Comments Blood Pressure 130/95 09/22/2024 4:22 PM CDT Pulse 108 09/22/2024 4:22 PM CDT Temperature 36.8 C (98.2 F) 09/22/2024 2:29 PM CDT Respiratory Rate 18 09/22/2024 2:29 PM CDT Oxygen Saturation 100% 09/22/2024 9:50 AM CDT Inhaled Oxygen Concentration - - Weight 63 kg (139 lb) 09/20/2024 3:35 PM CDT Height 162.6 cm (5' 4) 09/20/2024 3:35 PM CDT Body Mass Index 23.86 09/20/2024 3:35 PM CDT Plan of Treatment Health Maintenance Due Date Last Done Comments HIV SCREENING 2011 HEPATITIS C SCREENING 04/20/2014 DTAP/TDAP/TD VACCINES (1 - Tdap) 2015 HEPATITIS B VACCINE (1 of 3 - 19+ 3-dose series) 2015 PAP SMEAR 2017 HPV VACCINE (1 - 3-dose SCDM series) 2023 COVID-19 VACCINE ( season) 2024 INFLUENZA VACCINE (#1) 2024 6, 01/21/2011, 02/14/2010, Additional history exists ZOSTER VACCINE (1 of 2) 2046 DEPRESSION SCREENING Completed 09/14/2024 HIB VACCINE Aged Out No longer eligi ble based on patient's age to complete this topic MENINGOCOCCAL (Group B) VACCINE SHARED DECISION-MAKING Aged Out No longer eligible based on patient's age to complete this topic MENINGOCOCCAL GROUPS A/C/Y/W VACCINE Aged Out No longer eligible based on patient's age to complete this topic PNEUMOCOCCAL VACCINE Aged Out No long er eligible based on patient's age to complete this topic Procedures Procedure Name Priority Date/Time Associated Diagnosis Comments CBC W/O DIFFERENTIAL AM Draw 09/21/2024 10:08 AM CDT Endometritis TYPE + SCREEN PANEL Routine 09/20/2024 6 :56 PM CDT CHLAMYDIA AND N. GONORRHOEAE ALLISON STAT 09/20/2024 5:32 AM CDT Lower abdominal pain TRICHOMONAS VAGINALIS ALLISON STAT 09/20/2024 5:32 AM CDT Lower abdominal pain SLIDE SCAN HEMATOLOGY Routine 09/20/2024 5:25 AM CDT Pre-eclampsia COMPREHENSIVE METABOLIC PANEL STAT 09/20/2024 5:25 AM CDT Pre-eclampsia CBC W AUTO DIFFERENTIAL Routine 09/20/2024 5:25 AM CDT Pre-eclampsia IMAGING/RADIOLOGY/XRA Y RESULTS ORDER 09/19/2024 4:28 PM CDT IMAGING/RADIOLOGY/XRA Y RESULTS ORDER 09/19/2024 4:28 PM CDT COMPREHENSIVE METABOLIC PANEL STAT 09/15/2024 1:41 AM CDT Pain CBC W AUTO DIFFERENTIAL STAT 09/15/2024 1:41 AM CDT Pain PT EVAL AND TREAT Routine 09/13/2024 1:2 0 PM CDT RPR TITER STAT 09/12/2024 10:17 AM CDT Pre-eclampsia in third trimester (HCC) RPR STAT 09/12/2024 10:17 AM CDT Pre-eclampsia in third trimester ([facility]) CBC W/O DIFFERENTIAL AM Draw 09/12/2024 10:17 AM CDT SYPHILIS ANTIBODY CASCADING REFLEX STAT 09/12/2024 10:17 AM CDT Pre-eclampsia in third trimester ([facility]) PATHOLOGY TISSUE EXAM (STL) Routine 09/11/2024 11:21 PM CDT Single delivery by ([facility]) NEURAXIAL BLOCK Routine 09/11/2024 11:00 PM CDT BLOOD GASES CORD MOSHE (ISTAT) Routine 09/11/2024 10:53 PM CDT BLOOD GASES CORD ART (ISTAT) Routine 09/11/2024 10:49 PM CDT SECTION (EMERGENCY) 09/11/2024 10:19 PM CDT Single delivery by ([facility]) URINALYSIS REFLEX MICROSCOPIC REFLEX CULTURE STAT 09/11/2024 9:22 PM CDT Uterine contractions (HCC) PROTEIN CREATININE RATIO URINE RANDOM PNL STAT 09/11/2024 9:22 PM CDT Uterine contractions (HCC) CULTURE URINE STAT 09/11/2024 9:22 PM CDT Uterine contractions (HCC) TYPE + SCREEN PANEL STAT 09/11/2024 9 :15 PM CDT DIFFERENTIAL MANUAL STAT 09/11/2024 8 :33 PM CDT Uterine contractions (HCC) COMPREHENSIVE METABOLIC PANEL STAT 09/11/2024 8:33 PM CDT Uterine contractions (HCC) CBC W AUTO DIFFERENTIAL STAT 09/11/2024 8:33 PM CDT Uterine contractions (HCC) from Last 3 Months Results * (ABNORMAL) CBC W/O DIFFERENTIAL (09/21/2024 10:08 AM CDT) Only the most recent of2 resultswithin the time period is included. WBC 4.6 4.0 - 10.7 x10E9/L 09/21/2024 11:08 AM CDT [facility] RBC Count 3.50(L) 3.90 - 5.20 x10E12/L 09/21/2024 11:08 AM [facility] Hemoglobin 10.7(L) 11.9 - 15.8 g/dL 09/21/2024 11:08 AM [facility] Hematocrit 33.6(L) 34.8 - 46.1 % 09/21/2024 11:08 AM [facility] MCV 96.0 80.0 - 98.0 fL 09/21/2024 11:08 AM T [facility] MCH 30.6 26.7 - 33.6 pg 09/21/2024 11:08 [facility] MCHC 31.8 31.7 - 36.3 g/dL 09/21/2024 11:08 AM [facility] RDW-CV 13.8 11.3 - 14.8 % 09/21/2024 11:08 AM [facility] Platelet Count 414 150 - 420 x10E9/L 09/21/2024 11:08 AM [facility] MPV 8.4 7.8 - 11.4 fL 09/21/2024 11:08 AM [facility] Blood BLOOD SPECIMEN / Unknown Lab Venipuncture / Unknown 09/21/2024 10:08 AM CDT 09/21/2024 10:35 AM CDT Manpreet Irvin MD LAB - HEMATOLOGY ORDER LAYLA Final Result Performing Organization Address City/[facility]/ZIP Co de Phone Number [facility] [address] [place] [address] * TYPE + SCREEN PANEL (All [facility] except [facility]) (09/20/2024 6:56 PM CDT) Only the most recent of2 resultswithin the time period is included. ABO Rh B POS 09/20/2024 7:59 PM CDT [facility] Comment:History checked. Antibody Screen NEG 7:59 PM CDT [facility] Blood Bank BLOOD SPECIMEN / Unknown Venipuncture / Unknown 09/20/2024 6:56 PM CDT 09/20/2024 7:03 PM CDT Manpreet Irvin MD LAB - BLOOD BANK ORDER LAYLA Final Result Performing Organization Address [facility] Co de Phone Number [facility] [address] [place] [address] * TRICHOMONAS VAGINALIS ALLISON (09/20/2024 5:32 AM CDT) Trichomonas by ALLISON NEGATIVE NEGATIVE 09/20/2024 8:56 PM CDT [facility] Microbiology ENTIRE VAGINA / Unknown Collection / Unknown 09/20/2024 5:32 AM CDT 09/20/2024 5:35 AM CDT Narrative [facility] - 09/20/2024 8:56 PM CDT This test performed by Qualitative real-time Polymerase Chain Reaction (PCR). Manpreet Irvin MD LAB - MICROBIOLOGY ORD ERABLES Final Result Performing Organization Address City/[facility]/ZIP Co de Phone Number [facility] [address] [place] [address], [facility] [phone] * CHLAMYDIA AND N. GONORRHOEAE ALLISON (09/20/2024 5:32 AM CDT) Chlamydia by ALLISON NEGATIVE NEGATIVE 09/20/2024 8:56 PM CDT [facility] Neisseria gonorrhoeae ALLISON NEGATIVE NEGATIVE 09/20/2024 8:56 PM CDT [facility] Microbiology ENTIRE VAGINA / Unknown Collection / Unknown 09/20/2024 5:32 AM CDT 09/20/2024 5:35 AM CDT Narrative [facility] - 09/20/2024 8:56 PM CDT This test performed by Qualitative real-time Polymerase Chain Reaction (PCR). Manpreet Irvin MD LAB - MICROBIOLOGY ORD ERABLES Final Result [facility] [address] [place] [address], [facility] [phone] * SLIDE SCAN HEMATOLOGY (09/20/2024 5:25 AM CDT) RBC Morphology NORMAL 09/20/2024 6:27 AM CDT [facility] Blood BLOOD SPECIMEN / Unknown Venipuncture / Unknown 09/20/2024 5:25 AM CDT 09/20/2024 5:37 AM CDT Manpreet Irvin MD LAB - HEMATOLOGY ORDER LAYLA Final Result Performing Organization Address City/[facility]/ZIP Co de Phone Number [facility] [address] [place] [address] * (ABNORMAL) CBC W AUTO DIFFERENTIAL (09/20/2024 5:25 AM CDT) Only the most recent of3 resultswithin the time period is included. WBC 6.3 4.0 - 10.7 x10E9/L 09/20/2024 6:27 AM CDT [facility] RBC Count 3.55(L) 3.90 - 5.20 x10E12/L 09/20/2024 6:27 AM CDT [facility] Hemoglobin 10.6(L) 11.9 - 15.8 g/dL 09/20/2024 6:27 AM CDT [facility] Hematocrit 33.2(L) 34.8 - 46.1 % 09/20/2024 6:27 AM CDT [facility] MCV 93.5 80.0 - 98.0 fL 09/20/2024 6:27 AM CDT [facility] MCH 29.9 26.7 - 33.6 pg 09/20/2024 6:27 AM CDT [facility] MCHC 31.9 31.7 - 36.3 g/dL 09/20/2024 6:27 AM [facility] RDW-CV 13.4 11.3 - 14.8 % 09/20/2024 6:27 AM CDT [facility] Platelet Count 401 150 - 420 x10E9/L 09/20/2024 6:27 AM CDT [facility] MPV 8.2 7.8 - 11.4 fL 09/20/2024 6:27 AM [facility] Neutrophil % 63.8 41.0 - 74.0 % 09/20/2024 6:27 AM [facility] Lymphocyte % 26.7 17.0 - 47.0 % 09/20/2024 6:27 AM [facility] Monocyte % 7.5 3.0 - 11.0 % 09/20/2024 6:27 AM [facility] Eosinophil % 1.4 0.0 - 7.0 % 09/20/2024 6:27 AM [facility] Basophil % 0.3 0.0 - 1.6 % 09/20/2024 6:27 AM T [facility] Immature Granulocytes % 0.3 0.0 - 1.0 % 09/20/2024 6:27 AM [facility] Neutrophil Absolute 4.02 1.60 - 7.50 x10E9/L 09/20/2024 6:27 AM T [facility] Lymphocyte Absolute 1.68 1.00 - 4.40 x10E9/L 09/20/2024 6:27 AM CDT [facility] Monocyte Absolute 0.47 0.15 - 1.00 x10E9/L 09/20/2024 6:27 AM CDT [facility] Eosinophil Absolute 0.09 0.00 - 0.60 x10E9/L 09/20/2024 6:27 AM CDT [facility] Basophil Absolute 0.02 0.00 - 0.13 x10E9/L 09/20/2024 6:27 AM CDT [facility] Blood BLOOD SPECIMEN / Unknown Venipuncture / Unknown 09/20/2024 5:25 AM CDT 09/20/2024 5:37 AM CDT us Manpreet Irvin MD LAB - HEMATOLOGY ORDER LAYLA Final Result [facility] [address] [place], [place] [phone] * (ABNORMAL) COMPREHENSIVE METABOLIC PANEL (09/20/2024 5:25 AM CDT) Only the most recent of3 resultswithin the time period is included. Glucose 88 70 - 99 mg/dL 09/20/2024 5:59 AM [facility] Sodium 140 136 - 145 mmol/L 09/20/2024 5:59 AM [facility] Potassium 3.7 3.5 - 5.1 mmol/L 09/20/2024 5:59 AM [facility] Chloride 107 98 - 107 mmol/L 09/20/2024 5:59 AM [facility] CO2 26 22 - 29 mmol/L 09/20/2024 5:59 AM T [facility] Calcium 9.1 8.4 - 10.4 mg/dL 09/20/2024 5:59 AM [facility] Anion Gap 7 6 - 16 mmol/L 09/20/2024 5:59 AM CDT [facility] BUN 9 5.3 - 18.7 mg/dL 09/20/2024 5:59 AM [facility] Creatinine 0.71 0.57 - 1.11 mg/dL 09/20/2024 5:59 AM [facility] Alkaline Phosphatase 102 40 - 150 U/L 09/20/2024 5:59 AM CDT [facility] ALT 10 6 - 57 U/L 09/20/2024 5:59 AM [facility] AST 21 10 - 48 U/L 09/20/2024 5:59 AM [facility] Protein Total 7.1 6.4 - 8.3 gm/dL 09/20/2024 5:59 AM [facility] Albumin 3.0(L) 3.1 - 4.5 gm/dL 09/20/2024 5:59 AM CDT [facility] Bilirubin Total 0.1(L) 0.2 - 1.2 mg/dL 09/20/2024 5:59 AM CDT [facility] eGFR by CKD-EPI >90 >=90 mL/min/1.7 3 m2 09/20/2024 5:59 AM CDT [facility] Blood BLOOD SPECIMEN / Unknown Venipuncture / Unknown 09/20/2024 5:25 AM CDT 09/20/2024 5:37 AM CDT Manpreet Irvin MD LAB - CHEMISTRY ORDERA BLES Final Result Performing Organization Address [facility] Co de Phone Number [facility] [address] [place], [place] [phone] * IMAGING/RADIOLOGY/XRAY RESULTS ORDER (09/19/2024 4:28 PM CDT) Only the most recent of2 resultswithin the time period is included. Anatomical Region Laterality Modality Other Narrative 09/19/2024 4:28 PM CDT Ordered by an unspecified provider. Scanned Document IMAGING Final Result * (ABNORMAL) RPR TITER (09/12/2024 10:17 AM CDT) Pathologist [facility] RPR Titer 1:8(A) (none) 09/13/2024 6:38 AM CDT [facility] Blood BLOOD SPECIMEN / Unknown Venipuncture / Unknown 09/12/2024 10:17 AM CDT 09/12/2024 10:43 AM CDT Fredo Carr MD LAB - CHEMISTRY ORDERABLES Fin al Result Performing Organization Address [facility]/ZIP Co de Phone Number [facility] [address] [place] [phone] * (ABNORMAL) SYPHILIS ANTIBODY CASCADING REFLEX (09/12/2024 10:17 AM CDT) Treponema pallidum Antibody REACTIVE( A) Non Reactive 09/12/2024 11:32 AM CDT [facility] Comment:Additional testing r equired for evaluation of syphilis. An RPR has been reflexively ordered and is in progress. Blood BLOOD SPECIMEN / Unknown Venipuncture / Unknown 09/12/2024 10:17 AM CDT 09/12/2024 10:43 AM CDT Fredo Carr MD LAB - SEROLOGY ORDERABLES January l Result Performing Organization Address [facility] de Phone Number [facility] [address] [place] [phone] * (ABNORMAL) RPR (09/12/2024 10:17 AM CDT) RPR REACTIVE( A) Non Reactive 09/13/2024 6:38 AM CDT [facility] Comment: Treponemal antibodies and non-treponemal antibodies detected. Consistent with current syphilis infection. Clinical evaluation should be performed to identify signs, symptoms, or past history of infection. Blood BLOOD SPECIMEN / Unknown Venipuncture / Unknown 09/12/2024 10:17 AM CDT 09/12/2024 10:43 AM CDT Fredo Carr MD LAB - CHEMISTRY ORDERABLES Fin al Result Performing Organization Address [facility] de Phone Number [facility] [address] [place] [phone] * PATHOLOGY TISSUE EXAM (STL) (09/11/2024 11:21 PM CDT) Case Report Surgical Pathology Report Case: [id number] Authorizing Provider: Marlene Vegas MD Collected: 09/11/2024 11:21 PM Ordering Location: [facility] 5 LDR Received: 09/12/2024 08:11 AM Pathologist: Kaila Armijo MD Specimen: Placenta 09/13/2024 9:48 AM CDT [facility] Final Diagnosis Placenta, section - Small, hypermature placenta (weight <10th percentile for gestational age) - membranes with no histopathologic abnormality - Three-vessel umbilical cord with no histopathologic abnormality 09/13/2024 9:48 AM [facility] at 0948 CDT Clinical History The patient is a 29-year-old woman at 35 weeks, 0 days gestation. Procedure: section. 09/13/2024 9:48 AM [facility] Gross Description The requisition and specimen(s) are identified with the patient's name Viktor Spencer. Received fresh and subsequentially placed in formalin, specimen A, placenta is a 337.8g (after membranes and cord removed), 14.3 x 14.1 x 3.0 cm single disc placenta. The membranes are pink-levine and semitranslucent with a marginal insertion. The levine-white umbilical cord is 6.6 cm length x 1.1 cm average diameter with normal coiling and a eccentric insertion. Serial sectioning shows a trivascular cut surface. The surface is blue-gil with normal vascular arborization. The maternal surface is lobular, red-brown, and complete. Serial sectioning shows a spongy and red-brown parenchyma. [employer]crete [employer] sections are submitted as follows: A1- Umbilical cord A2- Membrane roll A3- Central parenchyma, full thickness A4- Peripheral parenchyma, full thickness./SKS 09/13/2024 9:48 AM [facility] Microscopic Description Microscopic examination substantiates the above diagnosis. 09/13/2024 9:48 AM [facility] Pathologist Location at [facility] 09/13/2024 9:48 AM [facility] Disclaimer All histochemical and/or immunohistochemical results are interpreted with controls that demonstrate appropriate staining reactions before reporting results. Note on use of immunocytochemistry reagents: This test was developed and its performance characteristic determined by [facility], Department of Laboratory Medicine. It has not been cleared or approved by the U.S. Food and Drug Administration (FDA). The FDA has determined that such clearance or approval is not necessary. The test is used for clinical purpose. It should not be regarded as investigational or for research. This laboratory is certified to perform high complexity testing. The performance characteristics of the IHC/JEIMY assays have been validated on formalin-fixed paraffin embedded tissues only. The assays have not been validated on decalcified tissues. Results should be interpreted with caution. 09/13/2024 9:48 AM CDT [facility] Embedded Images 09/13/2024 9:48 AM CDT [facility] Pathology/Cytolo gy ENTIRE PLACENTA / Unknown 09/11/2024 11:21 PM CDT 09/12/2024 8:11 AM CDT Comment:Pre-op diagnosis: Repeat C/S, Pre-E with SF Marlene Vegas MD LAB - PATHOLOGY/CYTOLOGY ORD ERABLES Final Result [facility] [address] [place] [address] * Neuraxial Block (09/11/2024 11:00 PM CDT) Narrative Evi Suarez APRN-CRNA - 09/11/2024 11:00 PM CDT Evi Suarez APRN-CRNA 09/11/2024 11:00 PM Neuraxial Block Note Pre-Procedure: Procedure Name: Neuraxial Block Patient Location: OB Indications: surgical anesthesia Pre-Anesthetic Checklist: Patient identified, IV Checked, Risks and benefits discussed, Surgical consent verified, Monitors and equipment, Site examined, Pre-op evaluation done, Time-out performed, Informed consent obtained, Questions answered/anesthesia questions answered and Allergies reviewed Anticoagulation/ Anti-thrombosis status confirmed? Yes Supplemental O2: room air Monitors: BP, continuous pluse ox, EKG and End tidal CO2 Patient Condition: awake Patient Sedated? No Procedure: Block Type: Spinal Prep: Betadine Sterile Field: mask, cap/hat, sterile established and sterile gloves Approach: midline Skin was localized? No Spinal Block: Needle Type: spinal needle Needle Gauge: 25 Placement Site: L4-5 Number of Attempts: 1 CSF: free flow, aspiration before injection, aspiration during injection, aspiration after injection Degree of difficulty: none Procedure Tolerance: tolerated well Sensory Level: T4 Motor Blockade: Yes Position post procedure: supine, left uterine displacement Vital Signs: Vital signs monitored and stable throughout. See anesthesia record for details., Vital signs moniitored and stable throughout. See nursing vitals flowsheet for details., heart tones monitored and stable throughout. Staff: Anesthesia Provider: Evi Suarez APRN-CRNA - performed the procedure Nenita Oliveros MD GENERAL ANESTHESIA ORD ERABLES Final Result * (ABNORMAL) BLOOD GASES CORD MOSHE (ISTAT) (09/11/2024 10:53 PM CDT) pH Cord Venous POCT 7.23(L) 7.28 - 7.40 pH 09/11/2024 11:05 PM CDT [facility] pCO2 Cord Venous POCT 54.3(H) 35 - 45 mm hg 09/11/2024 11:05 PM CDT [facility] pO2 Cord Venous POCT 17(L) 22 - 33 mm hg 09/11/2024 11:05 PM CDT [facility] HCO3 Cord Arterial POCT 22.6 22 - 24 mmol/L 09/11/2024 11:05 PM CDT [facility] BE Cord Venous POCT Calc -6 -6.4 - 1.6 mmol/L 09/11/2024 11:05 PM CDT [facility] TCO2 Cord Venous POCT 24 22 - 30 mmol/L 09/11/2024 11:05 PM CDT [facility] O2 Saturation % Cord Venous Calc POCT 17 % 09/11/2024 11:05 PM CDT [facility] Site CORD MOSHE 09/11/2024 11:05 PM CDT [facility] Sample iSTAT CORD MOSHE 09/11/2024 11:05 PM CDT [facility] Blood CORD BLOOD SPECIMEN / Unknown 09/11/2024 10:53 PM CDT 09/11/2024 11:05 PM CDT Fredo Carr MD LAB - POINT OF CARE ORDERABLES Final Result [facility] [address] [place] [address] * (ABNORMAL) BLOOD GASES CORD ART (ISTAT) (09/11/2024 10:49 PM CDT) pH Cord Arterial POCT 7.21 7.20 - 7.34 pH 09/11/2024 11:05 PM CDT [facility] pCO2 Cord Arterial POCT 59.4(H) 45 - 55 mm hg 09/11/2024 11:05 PM CDT [facility] pO2 Cord Arterial POCT <15 12 - 25 mm hg 09/11/2024 11:05 PM CDT [facility] HCO3 Cord Arterial POCT 23.6 22 - 24 mmol/L 09/11/2024 11:05 PM CDT [facility] BE Cord Arterial POCT -5(L) -2.9 - 8.3 mmol/L 09/11/2024 11:05 PM CDT [facility] TCO2 Cord Arterial POCT 25 mmol/L 09/11/2024 11:05 PM CDT [facility] O2 Saturation Cord Art % Calc POCT 6 % 09/11/2024 11:05 PM CDT [facility] Site CORD ART 09/11/2024 11:05 PM CDT [facility] Sample iSTAT CORD ART 09/11/2024 11:05 PM CDT [facility] Blood CORD BLOOD SPECIMEN / Unknown 09/11/2024 10:49 PM CDT 09/11/2024 11:05 PM CDT Fredo Carr MD LAB - POINT OF CARE ORDERABLES Final Result [facility] [address] [place] [address] * (ABNORMAL) URINALYSIS REFLEX MICROSCOPIC REFLEX CULTURE (09/11/2024 9:22 PM CDT) Color UA Yellow Yellow, Straw 09/11/2024 9:53 PM T [facility] Clarity UA Turbid(A) Clear 09/11/2024 9:53 PM CDT [facility] Glucose UA Normal Normal 09/11/2024 9:53 PM CDT [facility] Bilirubin UA Negative Negative 09/11/2024 9:53 PM CDT [facility] Ketone UA Negative Negative 09/11/2024 9:53 PM CDT [facility] Specific Manning UA 1.006 1.005 - 1.030 09/11/2024 9:53 PM CDT [facility] Blood UA Negative Negative 09/11/2024 9:53 PM CDT [facility] pH UA 6.5 5.0 - 8.0 09/11/2024 9:53 PM CDT [facility] Protein UA Negative Negative 09/11/2024 9:53 PM CDT [facility] Urobilinogen UA Normal Normal mg/dL 09/11/2024 9:53 PM CDT [facility] Nitrite UA Negative Negative 09/11/2024 9:53 PM CDT [facility] Leukocyte Esterase UA 500 RAFY/uL(A) Negative 09/11/2024 9:53 PM CDT [facility] RBC UA 6-10(A) 0 - 5 # /hpf 09/11/2024 9:53 PM CDT [facility] WBC UA 6-10(A) 0 - 5 # /hpf 09/11/2024 9:53 PM CDT [facility] Bacteria UA Trace(A) None Seen 09/11/2024 9:53 PM CDT [facility] Squamous Epithelial Cells >20(A) 0 - 5 /hpf 09/11/2024 9:53 PM CDT [facility] Mucus UA 1+ /LPF 09/11/2024 9:53 PM CDT [facility] Budding Yeast Many(A) None seen /hpf 09/11/2024 9:53 PM CDT [facility] Hyaline Casts 0-2 0 - 2 /LPF 09/11/2024 9:53 PM CDT [facility] Reflex Status Culture to follow 09/11/2024 9:53 PM CDT [facility] Urine URINE SPECIMEN OBTAINED BY CLEAN CATCH PROCEDURE / Unknown Collection / Unknown 09/11/2024 9:22 PM CDT 09/11/2024 9:44 PM CDT Narrative [facility] - 09/11/2024 9:53 PM CDT us Chintan Berry MD LAB - URINALYSIS ORDERABLES F inal Result [facility] [address] [place] [address] * CULTURE URINE (09/11/2024 9:22 PM CDT) Culture Urine 10,000-50,000 CFU/mL urogenital son ADONAY 09/13/2024 6:12 AM CDT [facility] Urine URINE SPECIMEN OBTAINED BY CLEAN CATCH PROCEDURE / Unknown Collection / Unknown 09/11/2024 9:22 PM CDT 09/11/2024 9:44 PM CDT Chintan Berry MD LAB - MICROBIOLOGY ORDERABLES Final Result Performing Organization Address [facility] Co de Phone Number [facility] [address] [place] [address], [facility] [phone] * PROTEIN CREATININE RATIO URINE RANDOM PNL (09/11/2024 9:22 PM CDT) Protein Urine <6.8 <11.9 mg/dL 09/11/2024 10:14 PM CDT [facility] Creatinine Urine 43.43 mg/dL 09/11/2024 10:14 PM CDT [facility] Protein/Creatin ine Ratio Urine 09/11/2024 10:14 PM CDT [facility] Comment:Unable to calculate due to limited levels of measurable protein. Urine URINE SPECIMEN OBTAINED BY CLEAN CATCH PROCEDURE / Unknown Collection / Unknown 09/11/2024 9:22 PM CDT 09/11/2024 9:44 PM CDT Chintan Berry MD LAB - URINE CHEMISTRY ORDERAB LES Final Result Performing Organization Address [facility] Co de Phone Number [facility] [address] [place] [address] * DIFFERENTIAL MANUAL (09/11/2024 8:33 PM CDT) Neutrophil % 62 41 - 74 % 09/11/2024 9:11 PM CDT [facility] Lymphocyte % 30 17 - 47 % 09/11/2024 9:11 PM CDT [facility] Monocyte % 6 3 - 11 % 09/11/2024 9:11 PM CDT [facility] Eosinophil % 1 0 - 7 % 09/11/2024 9:11 PM CDT [facility] Basophil % 1 0 - 2 % 09/11/2024 9:11 PM CDT [facility] Neutrophil Absolute 3.72 1.60 - 7.50 x10E9/L 09/11/2024 9:11 PM CDT [facility] Lymphocyte Absolute 1.80 1.00 - 4.40 x10E9/L 09/11/2024 9:11 PM CDT [facility] Monocyte Absolute 0.36 0.15 - 1.00 x10E9/L 09/11/2024 9:11 PM CDT [facility] Eosinophil Absolute 0.06 0.00 - 0.60 x10E9/L 09/11/2024 9:11 PM CDT [facility] Basophil Absolute 0.06 0.00 - 0.13 x10E9/L 09/11/2024 9:11 PM CDT [facility] RBC Morphology REVIEWED 09/11/2024 9:11 PM CDT [facility] Blood BLOOD SPECIMEN / Unknown Venipuncture / Unknown 09/11/2024 8:33 PM CDT 09/11/2024 8:40 PM CDT Chintan Berry MD LAB - HEMATOLOGY ORDERABLES F inal Result Performing Organization Address City/State/[facility] Co de Phone Number [facility] [address] [place] [address] from Last 3 Months Insurance [facility] [facility] Advance Directives * Full Code (Latest Code Status on File) Date Activated Date Inactivated Comments 09/11/2024 9:25 PM 09/14/2024 6:15 PM * Full Code Date Activated Date Inactivated Comments 09/10/2024 12:29 PM 09/11/2024 2:11 PM * Full Code Date Activated Date Inactivated Comments 12/18/2019 11:36 PM 12/20/2019 3:47 PM
--- OUTSIDE RECORDS SUMMARY | 2024-12-12 12:05 | XMS_ITS | Encounter Summary ---
Author Organization [facility] Address [address] [place] [address] Care Team Providers Care Reservation Manager Name Role Phone Unavailable Primary Care Provider Unavailabl e Encounter Details Date Type Department Care Team (Late st Contact Info) Description 01/19/2020 Telephone [facility] Women's Health Maternal & Care [address] [place] [address] Nilda Person Social History Tobacco Use Types Packs/Day Years Used Date Smoking Tobacco: Never Smokeless Tobacco: Never Alcohol Use Standard Drinks/Week Comments Not Currently 0 (1 standard drink = 0.6 oz pur e alcohol) Comments No Sex and Gender Information Value Date Recorded Sex Assigned at Female 09/11/2024 10:14 PM CDT Legal Sex Female 5:38 AM [employer] Gender Identity Female 09/20/2024 2:19 PM CDT Sexual Orientation Straight 09/20/2024 2: 19 PM CDT documented as of this encounter Functional Status * Is person deaf or have serious hearing difficulty? Answer Date of Assessment Author No 12/19/2019 12:00 AM CDT Ana Paula Rock RN * Is person blind or have serious difficulty seeing? Answer Date of Assessment Author No 12/19/2019 12:00 AM CDT Ana Paula Rock RN * Does person have serious difficulty walking/climbing stairs? Answer Date of Assessment Author No 12/19/2019 12:00 AM CDT Ana Paula Rock RN * Does person have difficulty dressing/bathing? Answer Date of Assessment Author No 12/19/2019 12:00 AM Ana Paula Chilel RN * Does person have difficulty doing errands alone? Answer Date of Assessment Author No 12/19/2019 12:00 AM Ana Paula Chilel RN documented as of this encounter Mental Status * Does person have difficulty concentrating/remembering/making decisions? Answer Entry Date Author No 12/19/2019 12:00 AM Ana Paula Chilel RN documented in this encounter Plan of Treatment Not on file documented as of this encounter Visit Diagnoses Not on filedocumented in this encounter
[2024-12-12] MEDS: ONDANSETRON INJ 4 MG/2 ML VIAL IV PUSH (12:37)
[2024-12-12] MEDS: SODIUM CHLORIDE 0.9% IV 1,000 ML 999 ML IV CONT (12:37)
[2024-12-12 12:39] LABS: BEDSIDEPREGUCG Negative (Negative)
[2024-12-12 12:48] LABS: Hematocrit 35.7 % (37.0-47.0); Hemoglobin 11.0 g/dL (12.0-15.0); Immature Granulocyte Percent A 0.0 % (0-0.5); Lymphocytes Absolute Auto 2.24 K/mm3 (0.9-3.2); Mean Corpuscular HGB Conc 30.8 g/dl (32-36); Mean Corpuscular Hemoglobin 27.0 pg (26-34); Mean Corpuscular Volume 87.5 fl (80-100); Nucleated Red Blood Cells Absolute Auto 0.000 K/mm3 (0.0-0.012); Nucleated Red Blood Cells Perc 0.0 % (0.0-0.2); Platelet Count Result 372 k/mm3 (150-375); Red Blood Count 4.08 M/mm3 (4.2-5.4); White Blood Count 4.4 K/mm3 (4.5-10.0)
[2024-12-12] MEDS: KETOROLAC 30 MG/ML VIAL (*BKC) IV PUSH (12:55)
[2024-12-12 13:00] LABS: Add Urine Microscopic? YES; Appearance Urine Clear (Clear); Glucose Urine UA Negative (Negative); Leukocyte Esterase Ur 1+ LEU/UL (Negative); Need Manual Microscopic Reviewed; Nitrate Urine Negative (Negative); Non Pathogenic Casts 0-2; Specific Grav Ur 1.019 (1.001-1.035)
[2024-12-12 13:01] LABS: INR 1.0; Partial Thromboplastin Time 23.8 Seconds (22.3-36.8); Prothrombin Time 13.4 Seconds (11.1-14.7)
--- OUTSIDE RECORDS SUMMARY | 2024-12-12 13:09 | XMS_ITS | Clinical Summary ---
Author Organization [facility] [employer] 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 This disclosure is being madepursuant to the Care Everywhere program and may not contain all information available regarding this patient. Last updated 17.[facility] [employer] Allergies No known active allergies Medications * [...] migh t be different from the original. [employer] form completed. Size NB diapers [...] Type Department Care Team Description 09/27/[address] [address] 09/22/2024 1:56 PM CDT - 09/22/2024 5:00 PM CDT Hospital Encounter [facility] [address] [address] Manpreet Irvin MD Discharge Disposition: Left Against Medical Advice/Discontinued Care 09/22/[address] [address] 09/20/2024 3:24 PM CDT - 09/22/2024 12:31 PM CDT Hospital Encounter [facility] 5E ANTEPARTUM/MOTHER BABY [address] [place] [phone] Manpreet Irvin MD Discharge Disposition: Home or Self Care 09/20/2024 4:28 AM CDT - 09/20/2024 7:18 AM CDT Hospital Encounter [facility] [address] [address] Manpreet Irvin MD Discharge Disposition: Home or Self Care 09/20/2024 Travel 09/19/2024 10:30 AM CDT - 09/19/2024 11:59 PM CDT Hospital Encounter [facility] at [address], [address] [place] [phone] Arvind oLcke MD Bryant, Kenisha L, [employer] DEAN-PERIOPERATIVE EDUCATOR Discharge Disposition: Home or Self Care 09/19/2024 9:37 AM CDT - 09/19/2024 10:29 AM CDT Hospital Encounter [facility] at [address], [address] [place] [phone] Arvind Locke MD Discharge Disposition: Home or Self Care 09/19/2024 Travel 09/15/2024 12:46 AM CDT - 09/15/2024 4:56 AM CDT Hospital Encounter [facility] [address] [place] [address] Fredo Carr MD Maternal Medicine Discharge Disposition: Home or Self Care 09/15/2024 Telephone [facility] - CRIMINAL PROFILER [address] [facility] [address] [place] [phone] Basia Reyna APRN-PERIOPERATIVE EDUCATOR Appointment 09/15/2024 Telephone [facility] MATERNAL/ EVALUATION UNIT [facility] [facility]. [address] [place] [address] Priscilla Campos RN Hospital Follow-up 09/14/2024 Orders Only [facility] PHYS OB [address] [place] [address] Daniel Mcfarlane MD S/P 09/14/2024 Orders Only [facility] PHYS OB [address] [place] [address] Daniel Mcfarlane MD S/P 09/12/2024 Telephone [facility] MATERNAL/ EVALUATION UNIT [address] [place] [address]. [address] [place] [phone] Priscilla Campos RN Hospitalization 09/11/2024 10:20 PM CDT - 09/11/2024 11:55 PM CDT Surgery [facility] 5 [place] [address] Marlene Vegas MD SECTION (EMERGENCY) 09/11/2024 10:19 PM CDT Anesthesia Event [facility] 5 [place] [address] Nenita Oliveros MD Lorusso, Chynna T, [employer] DEAN-BOTTOM PAINTER 09/11/2024 7:46 PM CDT - 09/14/2024 5:05 PM CDT Hospital Encounter [facility] 6W MOTHER/BABY [address] [place], [place] [phone] Chintan Berry MD Wendel, Michael, MD CRIMINAL PROFILER Discharge Disposition: Home or Self Care 09/10/2024 11:54 AM CDT - 09/11/2024 1:01 PM CDT Hospital Encounter [facility] 5E ANTEPARTUM/MOTHER BABY [address] [place] [address] Fredo Carr MD Discharge Disposition: Home or [...] medical care, and heating? Very hard 09/22/2024 [facility] - Occupational Stress Questionnaire Answer Date [...] things needed for daily living? Yes 09/22/2024 [place] Depression Scale Answer Date Recorded [place] Depression Scale Total 8 09/14/2024 The thought [...] any time in the past 12 m [facility], were you homeless or living in a snf (including now)? No 09/22/2024 Comments No Sex and Gender Information Value Date Recorded Sex Assigned at Female 09/11/2024 10:14 PM CDT Legal Sex Female 5:38 AM [employer] Gender Identity Female 09/20/2024 2:19 PM CDT [...] 10:17 AM CDT Pre-eclampsia in third trimester ([facility]) CBC W/O DIFFERENTIAL AM Draw 09/12/2024 10:17 AM CDT SYPHILIS ANTIBODY CASCADING REFLEX STAT 09/12/2024 10:17 AM CDT Pre-eclampsia in third trimester ([facility]) PATHOLOGY TISSUE EXAM (STL) Routine 09/11/2024 11:21 PM CDT Single delivery by ([facility]) NEURAXIAL BLOCK Routine 09/11/2024 11:00 PM CDT BLOOD GASES CORD MOSHE (ISTAT) Routine 09/11/2024 10:53 PM CDT BLOOD GASES CORD ART (ISTAT) Routine 09/11/2024 10:49 PM CDT SECTION (EMERGENCY) 09/11/2024 10:19 PM CDT Single delivery by ([facility]) URINALYSIS REFLEX MICROSCOPIC REFLEX CULTURE STAT 09/11/2024 [...] - 10.7 x10E9/L 09/21/2024 11:08 AM CDT [facility] RBC Count 3.50(L) 3.90 - 5.20 x10E12/L 09/21/2024 11:08 AM [facility] Hemoglobin 10.7(L) 11.9 - 15.8 g/dL 09/21/2024 11:08 AM [facility] Hematocrit 33.6(L) 34.8 - 46.1 % 09/21/2024 11:08 AM [facility] MCV 96.0 80.0 - 98.0 fL 09/21/2024 11:08 AM T [facility] MCH 30.6 26.7 - 33.6 pg 09/21/2024 11:08 AM [facility] MCHC 31.8 31.7 - 36.3 g/dL 09/21/2024 11:08 AM [facility] RDW-CV 13.8 11.3 - 14.8 % 09/21/2024 11:08 AM [facility] Platelet Count 414 150 - 420 x10E9/L 09/21/2024 11:08 AM [facility] MPV 8.4 7.8 - 11.4 fL 09/21/2024 11:08 AM [facility] Blood BLOOD SPECIMEN / Unknown Lab Venipuncture / Unknown 09/21/2024 10:08 AM CDT 09/21/2024 10:35 AM CDT Manpreet Irvin MD LAB - HEMATOLOGY ORDER LAYLA Final Result Performing Organization Address City/[facility]/ZIP Co de Phone Number [facility] [address] [place] [address] * TYPE + SCREEN PANEL (All [facility] except [facility]) (09/20/2024 6:56 PM CDT) Only the most recent of2 resultswithin the time period is included. ABO Rh B POS 09/20/2024 7:59 PM CDT [facility] Comment:History checked. Antibody Screen NEG 7:59 PM CDT [facility] Blood Bank BLOOD SPECIMEN / Unknown Venipuncture / Unknown 09/20/2024 6:56 PM CDT 09/20/2024 7:03 PM CDT Manpreet Irvin MD LAB - BLOOD BANK ORDER LAYLA Final Result Performing Organization Address [facility] Co de Phone Number [facility] [address] [place] [address] * TRICHOMONAS VAGINALIS ALLISON (09/20/2024 5:32 AM CDT) Trichomonas by ALLISON NEGATIVE NEGATIVE 09/20/2024 8:56 PM CDT [facility] Microbiology ENTIRE VAGINA / Unknown Collection / Unknown 09/20/2024 5:32 AM CDT 09/20/2024 5:35 AM CDT Narrative [facility]CRO[facility] - 09/20/2024 8:56 PM CDT This test performed by Qualitative real-time Polymerase Chain Reaction (PCR). Manpreet Irvin MD LAB - MICROBIOLOGY ORD ERABLES Final Result Performing Organization Address City/[facility]/ZIP Co de Phone Number [facility] [address] [place] [address], [facility] [phone] * CHLAMYDIA AND N. GONORRHOEAE ALLISON (09/20/2024 5:32 AM CDT) Chlamydia by ALLISON NEGATIVE NEGATIVE 09/20/2024 8:56 PM CDT [facility]CRO[facility] Neisseria gonorrhoeae ALLISON NEGATIVE NEGATIVE 09/20/2024 8:56 PM CDT [facility]CRO[facility] Microbiology ENTIRE VAGINA / Unknown Collection / Unknown 09/20/2024 5:32 AM CDT 09/20/2024 5:35 AM CDT Narrative [facility]CRO[facility] - 09/20/2024 8:56 PM CDT This test performed by Qualitative real-time Polymerase Chain Reaction (PCR). Manpreet Irvin MD LAB - MICROBIOLOGY ORD ERABLES Final Result [facility]CRO[facility] [address] [place] [address], [facility] [phone] * SLIDE SCAN HEMATOLOGY (09/20/2024 5:25 AM CDT) RBC Morphology NORMAL 09/20/2024 6:27 AM CDT [facility] Blood BLOOD SPECIMEN / Unknown Venipuncture / Unknown 09/20/2024 5:25 AM CDT 09/20/2024 5:37 AM CDT Manpreet Irvin MD LAB - HEMATOLOGY ORDER LAYLA Final Result Performing Organization Address City/[facility]/ZIP Co de Phone Number [facility] [address] [place] [address] * (ABNORMAL) CBC W AUTO DIFFERENTIAL (09/20/2024 5:25 AM CDT) Only the most recent of3 resultswithin the time period is included. WBC 6.3 4.0 - 10.7 x10E9/L 09/20/2024 6:27 AM CDT [facility] RBC Count 3.55(L) 3.90 - 5.20 x10E12/L 09/20/2024 6:27 AM CDT [facility] Hemoglobin 10.6(L) 11.9 - 15.8 g/dL 09/20/2024 6:27 AM CDT [facility] Hematocrit 33.2(L) 34.8 - 46.1 % 09/20/2024 6:27 AM CDT [facility] MCV 93.5 80.0 - 98.0 fL 09/20/2024 6:27 AM CDT [facility] MCH 29.9 26.7 - 33.6 pg 09/20/2024 6:27 AM CDT [facility] MCHC 31.9 31.7 - 36.3 g/dL 09/20/2024 6:27 AM [facility] RDW-CV 13.4 11.3 - 14.8 % 09/20/2024 6:27 AM CDT [facility] Platelet Count 401 150 - 420 x10E9/L 09/20/2024 6:27 AM CDT [facility] MPV 8.2 7.8 - 11.4 fL 09/20/2024 6:27 AM [facility] Neutrophil % 63.8 41.0 - 74.0 % 09/20/2024 6:27 AM [facility] Lymphocyte % 26.7 17.0 - 47.0 % 09/20/2024 6:27 AM [facility] Monocyte % 7.5 3.0 - 11.0 % 09/20/2024 6:27 AM [facility] Eosinophil % 1.4 0.0 - 7.0 % 09/20/2024 6:27 AM [facility] Basophil % 0.3 0.0 - 1.6 % 09/20/2024 6:27 AM T [facility] Immature Granulocytes % 0.3 0.0 - 1.0 % 09/20/2024 6:27 AM [facility] Neutrophil Absolute 4.02 1.60 - 7.50 x10E9/L 09/20/2024 6:27 AM T [facility] Lymphocyte Absolute 1.68 1.00 - 4.40 x10E9/L 09/20/2024 6:27 AM CDT [facility] Monocyte Absolute 0.47 0.15 - 1.00 x10E9/L 09/20/2024 6:27 AM CDT [facility] Eosinophil Absolute 0.09 0.00 - 0.60 x10E9/L 09/20/2024 6:27 AM CDT [facility] Basophil Absolute 0.02 0.00 - 0.13 x10E9/L 09/20/2024 6:27 AM CDT [facility] Blood BLOOD SPECIMEN / Unknown Venipuncture / Unknown 09/20/2024 5:25 AM CDT 09/20/2024 5:37 AM CDT us Manpreet Irvin MD LAB - HEMATOLOGY ORDER LAYLA Final Result [facility] [address] [place], [place] [id number] * (ABNORMAL) COMPREHENSIVE METABOLIC PANEL (09/20/2024 5:25 AM CDT) Only the most recent of3 resultswithin the time period is included. Glucose 88 70 - 99 mg/dL 09/20/2024 5:59 AM [facility] Sodium 140 136 - 145 mmol/L 09/20/2024 5:59 AM [facility] Potassium 3.7 3.5 - 5.1 mmol/L 09/20/2024 5:59 AM [facility] Chloride 107 98 - 107 mmol/L 09/20/2024 5:59 AM [facility] CO2 26 22 - 29 mmol/L 09/20/2024 5:59 AM T [facility] Calcium 9.1 8.4 - 10.4 mg/dL 09/20/2024 5:59 AM [facility] Anion Gap 7 6 - 16 mmol/L 09/20/2024 5:59 AM CDT [facility] BUN 9 5.3 - 18.7 mg/dL 09/20/2024 5:59 AM [facility] Creatinine 0.71 0.57 - 1.11 mg/dL 09/20/2024 5:59 AM [facility] Alkaline Phosphatase 102 40 - 150 U/L 09/20/2024 5:59 AM CDT [facility] ALT 10 6 - 57 U/L 09/20/2024 5:59 AM [facility] AST 21 10 - 48 U/L 09/20/2024 5:59 AM [facility] Protein Total 7.1 6.4 - 8.3 gm/dL 09/20/2024 5:59 AM [facility] Albumin 3.0(L) 3.1 - 4.5 gm/dL 09/20/2024 5:59 AM CDT [facility] Bilirubin Total 0.1(L) 0.2 - 1.2 mg/dL 09/20/2024 5:59 AM CDT [facility] eGFR by CKD-EPI >90 >=90 mL/min/1.7 3 m2 09/20/2024 5:59 AM CDT [facility] Blood BLOOD SPECIMEN / Unknown Venipuncture / Unknown 09/20/2024 5:25 AM CDT 09/20/2024 5:37 AM CDT Manpreet Irvin MD LAB - CHEMISTRY ORDERA BLES Final Result Performing Organization Address [facility] Co de Phone Number [facility] [address] [place], [place] [phone] * IMAGING/RADIOLOGY/XRAY RESULTS ORDER (09/19/2024 4:28 PM CDT) Only the most recent of2 resultswithin the time period is included. Anatomical Region Laterality Modality Other Narrative 09/19/2024 4:28 PM CDT Ordered by an unspecified provider. Scanned Document IMAGING Final Result * (ABNORMAL) RPR TITER (09/12/2024 10:17 AM CDT) Pathologist [facility] RPR Titer 1:8(A) (none) 09/13/2024 6:38 AM CDT [facility] Blood BLOOD SPECIMEN / Unknown Venipuncture / Unknown 09/12/2024 10:17 AM CDT 09/12/2024 10:43 AM CDT Fredo Carr MD LAB - CHEMISTRY ORDERABLES Fin al Result Performing Organization Address [facility]/ZIP Co de Phone Number [facility] [address] [place] [phone] * (ABNORMAL) SYPHILIS ANTIBODY CASCADING REFLEX (09/12/2024 10:17 AM CDT) Treponema pallidum Antibody REACTIVE( A) Non Reactive 09/12/2024 11:32 AM CDT [facility] Comment:Additional testing r equired for evaluation of syphilis. An RPR has been reflexively ordered and is in progress. Blood BLOOD SPECIMEN / Unknown Venipuncture / Unknown 09/12/2024 10:17 AM CDT 09/12/2024 10:43 AM CDT Fredo Carr MD LAB - SEROLOGY ORDERABLES January l Result Performing Organization Address [facility] de Phone Number [facility] [address] [place] [phone] * (ABNORMAL) RPR (09/12/2024 10:17 AM CDT) RPR REACTIVE( A) Non Reactive 09/13/2024 6:38 AM CDT [facility] Comment: Treponemal antibodies and non-treponemal antibodies detected. Consistent with current syphilis infection. Clinical evaluation should be performed to identify signs, symptoms, or past history of infection. Blood BLOOD SPECIMEN / Unknown Venipuncture / Unknown 09/12/2024 10:17 AM CDT 09/12/2024 10:43 AM CDT Fredo Carr MD LAB - CHEMISTRY ORDERABLES Fin al Result Performing Organization Address [facility] de Phone Number [facility] [address] [place] [phone] * PATHOLOGY TISSUE EXAM (STL) (09/11/2024 11:21 PM CDT) Case Report Surgical Pathology Report Case: [id number] Authorizing Provider: Marlene Vegas MD Collected: 09/11/2024 11:21 PM Ordering Location: [facility] 5 LDR Received: 09/12/2024 08:11 AM Pathologist: Kaila Armijo MD Specimen: Placenta 09/13/2024 9:48 AM CDT [facility] Final Diagnosis Placenta, section - Small, hypermature placenta (weight <10th percentile for gestational age) - membranes with no histopathologic abnormality - Three-vessel umbilical cord with no histopathologic abnormality 09/13/2024 9:48 AM [facility] at 0948 CDT Clinical History The patient is a 29-year-old woman at 35 weeks, 0 days gestation. Procedure: section. 09/13/2024 9:48 AM [facility] Gross Description The requisition and specimen(s) [...] sectioning shows a spongy and red-brown parenchyma. Bail Agent sections are submitted as follows: A1- Umbilical cord A2- Membrane roll A3- Central parenchyma, full thickness A4- Peripheral parenchyma, full thickness./SKS 09/13/2024 9:48 AM [facility] Microscopic Description Microscopic examination substantiates the above diagnosis. 09/13/2024 9:48 AM [facility] Pathologist Location at [facility] 09/13/2024 9:48 AM [facility] Disclaimer All histochemical and/or immunohistochemical results are interpreted with controls that demonstrate appropriate staining reactions before reporting results. Note on use of immunocytochemistry reagents: This test was developed and its performance characteristic determined by [facility], Department of Laboratory Medicine. It has not [...] interpreted with caution. 09/13/2024 9:48 AM CDT [facility] Embedded Images 09/13/2024 9:48 AM CDT [facility] Pathology/Cytolo gy ENTIRE PLACENTA / Unknown 09/11/2024 11:21 PM CDT 09/12/2024 8:11 AM CDT Comment:Pre-op diagnosis: Repeat C/S, Pre-E with SF Marlene Vegas MD LAB - PATHOLOGY/CYTOLOGY ORD ERABLES Final Result [facility] [address] [place] [address] * Neuraxial Block (09/11/2024 11:00 PM CDT) [...] - 7.40 pH 09/11/2024 11:05 PM CDT [facility] pCO2 Cord Venous POCT 54.3(H) 35 - 45 mm hg 09/11/2024 11:05 PM CDT [facility] pO2 Cord Venous POCT 17(L) 22 - 33 mm hg 09/11/2024 11:05 PM CDT [facility] HCO3 Cord Arterial POCT 22.6 22 - 24 mmol/L 09/11/2024 11:05 PM CDT [facility] BE Cord Venous POCT Calc -6 -6.4 - 1.6 mmol/L 09/11/2024 11:05 PM CDT [facility] TCO2 Cord Venous POCT 24 22 - 30 mmol/L 09/11/2024 11:05 PM CDT [facility] O2 Saturation % Cord Venous Calc POCT 17 % 09/11/2024 11:05 PM CDT [facility] Site CORD MOSHE 09/11/2024 11:05 PM CDT [facility] Sample iSTAT CORD MOSHE 09/11/2024 11:05 PM CDT [facility] Blood CORD BLOOD SPECIMEN / Unknown 09/11/2024 10:53 PM CDT 09/11/2024 11:05 PM CDT Fredo Carr MD LAB - POINT OF CARE ORDERABLES Final Result [facility] [address] [place] [address] * (ABNORMAL) BLOOD GASES CORD ART (ISTAT) (09/11/2024 10:49 PM CDT) pH Cord Arterial POCT 7.21 7.20 - 7.34 pH 09/11/2024 11:05 PM CDT [facility] pCO2 Cord Arterial POCT 59.4(H) 45 - 55 mm hg 09/11/2024 11:05 PM CDT [facility] pO2 Cord Arterial POCT <15 12 - 25 mm hg 09/11/2024 11:05 PM CDT [facility] HCO3 Cord Arterial POCT 23.6 22 - 24 mmol/L 09/11/2024 11:05 PM CDT [facility] BE Cord Arterial POCT -5(L) -2.9 - 8.3 mmol/L 09/11/2024 11:05 PM CDT [facility] TCO2 Cord Arterial POCT 25 mmol/L 09/11/2024 11:05 PM CDT [facility] O2 Saturation Cord Art % Calc POCT 6 % 09/11/2024 11:05 PM CDT [facility] Site CORD ART 09/11/2024 11:05 PM CDT [facility] Sample iSTAT CORD ART 09/11/2024 11:05 PM CDT [facility] Blood CORD BLOOD SPECIMEN / Unknown 09/11/2024 10:49 PM CDT 09/11/2024 11:05 PM CDT Fredo Carr MD LAB - POINT OF CARE ORDERABLES Final Result [facility] [address] [place] [address] * (ABNORMAL) URINALYSIS REFLEX MICROSCOPIC REFLEX CULTURE (09/11/2024 9:22 PM CDT) Color UA Yellow Yellow, Straw 09/11/2024 9:53 PM T [facility] Clarity UA Turbid(A) Clear 09/11/2024 9:53 PM CDT [facility] Glucose UA Normal Normal 09/11/2024 9:53 PM CDT [facility] Bilirubin UA Negative Negative 09/11/2024 9:53 PM CDT [facility] Ketone UA Negative Negative 09/11/2024 9:53 PM CDT [facility] Specific [place] UA 1.006 1.005 - 1.030 09/11/2024 9:53 PM CDT [facility] Blood UA Negative Negative 09/11/2024 9:53 PM CDT [facility] pH UA 6.5 5.0 - 8.0 09/11/2024 9:53 PM CDT [facility] Protein UA Negative Negative 09/11/2024 9:53 PM CDT [facility] Urobilinogen UA Normal Normal mg/dL 09/11/2024 9:53 PM CDT [facility] Nitrite UA Negative Negative 09/11/2024 9:53 PM CDT [facility] Leukocyte Esterase UA 500 RAFY/uL(A) Negative 09/11/2024 9:53 PM CDT [facility] RBC UA 6-10(A) 0 - 5 # /hpf 09/11/2024 9:53 PM CDT [facility] WBC UA 6-10(A) 0 - 5 # /hpf 09/11/2024 9:53 PM CDT [facility] Bacteria UA Trace(A) None Seen 09/11/2024 9:53 PM CDT [facility] Squamous Epithelial Cells >20(A) 0 - 5 /hpf 09/11/2024 9:53 PM CDT [facility] Mucus UA 1+ /LPF 09/11/2024 9:53 PM CDT [facility] Budding Yeast Many(A) None seen /hpf 09/11/2024 9:53 PM CDT [facility] Hyaline Casts 0-2 0 - 2 /LPF 09/11/2024 9:53 PM CDT [facility] Reflex Status Culture to follow 09/11/2024 9:53 PM CDT [facility] Urine URINE SPECIMEN OBTAINED BY CLEAN CATCH PROCEDURE / Unknown Collection / Unknown 09/11/2024 9:22 PM CDT 09/11/2024 9:44 PM CDT Narrative [facility] - 09/11/2024 9:53 PM CDT us Chintan Berry MD LAB - URINALYSIS ORDERABLES F inal Result [facility] [address] [place] [address] * CULTURE URINE (09/11/2024 9:22 PM CDT) Culture Urine 10,000-50,000 CFU/mL urogenital son ADONAY 09/13/2024 6:12 AM CDT [facility] Urine URINE SPECIMEN OBTAINED BY CLEAN CATCH PROCEDURE / Unknown Collection / Unknown 09/11/2024 9:22 PM CDT 09/11/2024 9:44 PM CDT Chintan Berry MD LAB - MICROBIOLOGY ORDERABLES Final Result Performing Organization Address [facility] Co de Phone Number [facility] [address] [place] [address], [facility] [phone] * PROTEIN CREATININE RATIO URINE RANDOM PNL (09/11/2024 9:22 PM CDT) Protein Urine <6.8 <11.9 mg/dL 09/11/2024 10:14 PM CDT [facility] Creatinine Urine 43.43 mg/dL 09/11/2024 10:14 PM CDT [facility] Protein/Creatin ine Ratio Urine 09/11/2024 10:14 PM CDT [facility] Comment:Unable to calculate due to limited levels of measurable protein. Urine URINE SPECIMEN OBTAINED BY CLEAN CATCH PROCEDURE / Unknown Collection / Unknown 09/11/2024 9:22 PM CDT 09/11/2024 9:44 PM CDT Chintan Berry MD LAB - URINE CHEMISTRY ORDERAB LES Final Result Performing Organization Address [facility] Co de Phone Number [facility] [address] [place] [address] * DIFFERENTIAL MANUAL (09/11/2024 8:33 PM CDT) Neutrophil % 62 41 - 74 % 09/11/2024 9:11 PM CDT [facility] Lymphocyte % 30 17 - 47 % 09/11/2024 9:11 PM CDT [facility] Monocyte % 6 3 - 11 % 09/11/2024 9:11 PM CDT [facility] Eosinophil % 1 0 - 7 % 09/11/2024 9:11 PM CDT [facility] Basophil % 1 0 - 2 % 09/11/2024 9:11 PM CDT [facility] Neutrophil Absolute 3.72 1.60 - 7.50 x10E9/L 09/11/2024 9:11 PM CDT [facility] Lymphocyte Absolute 1.80 1.00 - 4.40 x10E9/L 09/11/2024 9:11 PM CDT [facility] Monocyte Absolute 0.36 0.15 - 1.00 x10E9/L 09/11/2024 9:11 PM CDT [facility] Eosinophil Absolute 0.06 0.00 - 0.60 x10E9/L 09/11/2024 9:11 PM CDT [facility] Basophil Absolute 0.06 0.00 - 0.13 x10E9/L 09/11/2024 9:11 PM CDT [facility] RBC Morphology REVIEWED 09/11/2024 9:11 PM CDT [facility] Blood BLOOD SPECIMEN / Unknown Venipuncture / Unknown 09/11/2024 8:33 PM CDT 09/11/2024 8:40 PM CDT Chintan Berry MD LAB - HEMATOLOGY ORDERABLES F inal Result Performing Organization Address City/State/[facility] Co de Phone Number [facility] [address] [place] [address] from Last 3 Months Insurance [facility] [address] [facility] Advance Directives * Full Code (Latest Code Status on File) Date Activated Date Inactivated Comments 09/11/2024 9:25 PM 09/14/2024 6:15 PM * Full Code Date Activated Date Inactivated Comments 09/10/2024 12:29 PM 09/11/2024 2:11 PM * Full Code Date Activated Date Inactivated Comments 12/18/2019 11:36 PM 12/20/2019 3:47 PM
--- OUTSIDE RECORDS SUMMARY | 2024-12-12 13:09 | XMS_ITS | Encounter Summary ---
Author Organization [facility] Address [address] [place] [address] Care Team Providers Care Running Instructor Name Role Phone Unavailable Primary Care Provider Unavailabl e Encounter Details Date Type Department Care Team (Late st Contact Info) Description 01/19/2020 Telephone [facility] Women's Health Maternal & Care [address] [place] [address] Nilda Person Social History Tobacco Use Types Packs/Day Years Used Date Smoking Tobacco: Never Smokeless Tobacco: Never Alcohol Use Standard Drinks/Week Comments Not Currently 0 (1 standard drink = 0.6 oz pur e alcohol) Comments No Sex and Gender Information Value Date Recorded Sex Assigned at Female 09/11/2024 10:14 PM CDT 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
[2024-12-12 13:12] LABS: Alanine Aminotransferase 13 U/L (6-35); Albumin Level 4.3 g/dL (3.5-5.1); Alkaline Phosphatase 62 U/L (38-126); Anion Gap 9 mmol/L (4-12); Aspartate Amino Transferase 31 U/L (14-36); Bilirubin,Total 0.4 mg/dL (0.2-1.3); Blood Urea Nitrogen 8 mg/dL (7-17); Calcium 8.6 mg/dL (8.4-10.2); Carbon Dioxide 22 mmol/L (22-30); Chloride 105 mmol/L (98-107); Estimated CRCL calculation 95 ml/min; Estimated Glomerular Filt Rate > 60; Glucose 87 mg/dL (65-110); Lipase 187 U/L (23-300); Potassium 3.8 mmol/L (3.4-5.0); Sodium 136 mmol/L (137-145); Total Protein 8.0 g/dL (6.3-8.2)
--- NOTE | 2024-12-12 13:13 | ED_ITS ---
HPI - Abdominal Pain General Chief Complaint: Abdominal Pain Stated Complaint: abd pain, 3 months postparum, bleeding incision Time Seen by Provider: 12/12/24 12:09 History of Present Illness HPI narrative: Patient is a 29-year-old female who presents ER with abdominal pain/cramping. Patient has been having pain on left side of her abdomen. She is also having discomfort over her 3-month-old site. No drainage from the site. [facility] but when she was evaluated there she was found to be without . She is scheduled for tubal ligation on 12/20/2024. No fevers or chills or sweats. No vomiting but does have mild nausea. Related Data Allergies Allergy/AdvReac Type Severity Reaction Status Date / Time No Known Allergies Allergy Verified 12/12/24 11:45 Review of Systems 2 Review of Systems: All systems reviewed & are unremarkable except as noted in HPI and below Constitutional: Constitutional: Reports no additional constitutional complaints Cardiovascular: Cardiovascular: Reports no additional cardiovascular complaints Respiratory: Respiratory: Reports no additional respiratory complaints Gastrointestinal: Gastrointestinal: Reports no additional gastrointestinal complaints [facility] Past Medical History Medical History (Updated 12/12/24 @ 15:22 by Pranav Chin MD) Depression History of 3 Orthostatic hypotension Antepartum syphilis Polysubstance abuse Marijuana and amphetamines positive August 07 No care in current care established in early July with Dr. Berry Surgical History Surgical History (Updated 09/10/24 @ 09:38 by Pily Abel MD) H/O section 1 and 2 Social History Social History Smoking status: Never smoker Alcohol intake: never Substance use: former Substance use type: marijuana Do You Feel Safe in your Home?: Yes Lack of Transportation: YES Lack of Food: Sometimes True Current Housing: I Do Not Have Housing Concerned About Future Housing: YES Difficulty Paying Gas/Electric Bills: YES Difficulty Paying for Meds: YES Currently Unemployed: YES Education: High School Diploma/GED Difficulty w/ Childcare or Family Care: YES Gender identity (if verbalized by the patient): Female Exam 2 Narrative: GENERAL: Well-appearing, well-nourished, and in no acute distress. HEAD: Normocephalic, atraumatic. ENT: Mucous membranes moist. CHEST: Clear to auscultation. No respiratory distress. HEART: Regular rate and rhythm. Normal peripheral pulses. ABDOMEN: Soft, mild left-sided tenderness in the upper and lower quadrants. Nondistended. EXTREMITIES: Normal range of motion. No edema. SKIN: Warm, dry, no rash. NEURO: Alert and oriented x3. PSYCH: Normal mood and affect. Course Course Emergency Course: Lab work unremarkable but urinalysis does have 2+ bacteria. Will place on oral antibiotics. Recommend follow-up with PCP. CT without acute process within the abdomen. Received Toradol for pain control. Vital Signs Vital signs: Vital Signs Temperature 98.0 F 12/12/24 11:46 Pulse Rate 94 12/12/24 11:46 Respiratory Rate 20 12/12/24 11:46 Blood Pressure 149/90 H 12/12/24 11:46 Pulse Oximetry 99 12/12/24 11:46 Oxygen Delivery Room Air 12/12/24 11:46 Temperature 98.0 F 12/12/24 11:46 Pulse Rate 94 12/12/24 11:46 Respiratory Rate 20 12/12/24 11:46 Blood Pressure 128/84 12/12/24 12:17 Pulse Oximetry 100 12/12/24 13:00 Oxygen Delivery Room Air 12/12/24 11:46 MDM - Abdominal Pain Lab Data 12/12/24 12:37 12/12/24 12:37 Labs: Lab Results 12/12/24 Range/Units 12:37 WBC 4.4 L (4.5-10.0) K/mm3 RBC 4.08 L (4.2-5.4) M/mm3 Hgb 11.0 L (12.0-15.0) g/dL Hct 35.7 L (37.0-47.0) % MCV 87.5 (80-100) fl MCH 27.0 (26-34) pg MCHC 30.8 L (32-36) g/dl RDW 16.5 H (11.5-14.5) % Plt Count 372 (150-375) k/mm3 MPV 9.4 (7.4-10.4) fl Immature Gran % (Auto) 0.0 (0-0.5) % Neut % (Auto) 37.3 L (45.5-73.1) % Lymph % (Auto) 50.7 H (18.3-44.2) % [place] % (Auto) 8.4 (2.6-8.5) % Eos % (Auto) 2.9 (0-4.4) % Baso % (Auto) 0.7 (0.2-1.2) % Lymph # (Auto) 2.24 (0.9-3.2) K/mm3 [place] # (Auto) 0.4 (0.1-0.6) K/mm3 Eos # (Auto) 0.1 (0-0.3) K/mm3 Baso # (Auto) 0.0 (0.0-0.1) K/mm3 Abs Immat Gran (auto) 0.00 (0.00-0.031) K/mm3 Absolute Neuts (auto) 1.7 (1.3-6.7) K/mm3 Absolute Nucleated RBC 0.000 (0.0-0.012) K/mm3 Nucleated RBC % 0.0 (0.0-0.2) % PT 13.4 (11.1-14.7) Seconds INR 1.0 APTT 23.8 (22.3-36.8) Seconds Sodium 136 L (137-145) mmol/L Potassium 3.8 (3.4-5.0) mmol/L Chloride 105 (98-107) mmol/L Carbon Dioxide 22 (22-30) mmol/L Anion Gap 9 (4-12) mmol/L BUN 8 (7-17) mg/dL Creatinine 0.73 (0.7-1.0) mg/dL Estim Creat Clear Calc 95 ml/min Estimated GFR > 60 (59 - ) Glucose 87 (65-110) mg/dL Calcium 8.6 (8.4-10.2) mg/dL Total Bilirubin 0.4 (0.2-1.3) mg/dL AST 31 (14-36) U/L ALT 13 (6-35) U/L Alkaline Phosphatase 62 (38-126) U/L Total Protein 8.0 (6.3-8.2) g/dL Albumin 4.3 (3.5-5.1) g/dL Lipase 187 (23-300) U/L Urine Color Yellow (Yellow) Urine Appearance Clear (Clear) Urine pH 6.5 (5.0-9.0) Ur Specific [place] 1.019 (1.001-1.035) Urine Protein Negative (Negative) mg/dL Urine Glucose (UA) Negative (Negative) mg/dL Urine Ketones Negative (Negative) mg/dL Ur Blood (Man) Negative (Negative) Urine Nitrate Negative (Negative) Urine Bilirubin Negative (Negative) Urine Urobilinogen 1.0 (<2.0) mg/dL Add Ur Microanalysis Reviewed Leukocyte Esterase Rfl 1+ H (Negative) RAFY/UL Urine RBC 3-5 H (0-2) /hpf Urine WBC 0-5 (0-3) /hpf Ur Squamous Epith Cells Moderate (Few) /hpf Urine Bacteria 2+ H /hpf Urine Casts 0-2 POC Urine HCG, Qual Negative (Negative) Imaging Data Radiologist's impression: ITS Impressions Abdomen/Pelvis CT 12/12/24 14:36 IMPRESSION: 1. No acute findings. Discharge Plan Discharge Clinical Impression: Abdominal cramping, UTI (urinary tract infection) Patient Disposition: Home Condition: Stable Instructions: Antibiotic Form, Urinary Tract Infection in Women (ED) Additional Instructions: You should return to the emergency department if you develop severe nausea and vomiting and are unable to keep liquids down, if you develop severe back/flank or stomach pain, or if your symptoms are not clearly improving at home. Patient Language: Maori Prescriptions: New cephalexin 500 mg capsule 500 mg PO Q12H Qty: 7 0RF No Action sertraline [Zoloft] 50 mg tablet 50 mg PO DAILY Qty: 30 2RF metronidazole 500 mg Tablet 500 mg PO BID Qty: 14 0RF acetaminophen 500 mg Tablet 1,000 mg PO Q6H PRN (Reason: Headache) Qty: 1 0RF Follow-up/Referrals: UNKNOWN,DOCTOR [Primary Care Provider] - 1 Week
== END 2024-12-12 15:30 | disposition home or self-care (01) ==
PROVIDERS: Emergency Provider Emergency Medicine
DX: N39.0 Urinary tract infection, site not specified (principal)
CPT/HCPCS: 36415; 74177; 80053; 81001; 81025; 83690; 85025; 85610; 85730; 96361; 96374; 96375; 99284; J1885; J2405; J7030; Q9967

== ENCOUNTER 2025-01-11 14:15 | Emergency (ER) | payer OTHER, SELFPAY ==
--- NOTE | ~2025-01-11 | CT_ITS ---
CT abdomen pelvis w con INDICATION:R back, flank and abdominal pain . COMPARISON: None. TECHNIQUE: Axial images of the abdomen and pelvis were obtained following infusion of 100 mL Isovue 300. Dose optimization technique was utilized. FINDINGS: The lung bases are clear. The liver parenchyma is unremarkable. No intrahepatic mass or ductal dilatation is evident. The gallbladder is unremarkable. The pancreas and spleen are normal in appearance. The adrenal glands are symmetric in size. The kidneys demonstrate symmetric uptake and excretion of contrast. No cystic mass is evident. There is no solid mass. There is no hydronephrosis. Evaluation of the stomach and bowel loops are limited due to lack of oral contrast. The appendix is normal in appearance. The bladder and rectum are normal. Endometrium is thickened. 3.9 x 2.2 cm cyst. No free intraperitoneal fluid or air is evident. There is no significant retroperitoneal lymphadenopathy. The aorta, visceral vessels and renal arteries demonstrate normal caliber and patency. The lower thoracic and lumbar vertebrae are in normal alignment. IMPRESSION: Thickened endometrium. 3.9 x 2.2 cm right adnexal cyst. All CT scans at this facility are performed using low dose modulation techniques as appropriate to perform exam including the following: automated exposure control; use of iterative reconstruction technique; adjustment of the mA and/or kV according to patient size (this includes techniques or standardized protocols for targeted exams where dose is matched to indication/reason for exam). Reviewed, dictated and finalized at location S. IMPRESSION: Thickened endometrium. 3.9 x 2.2 cm right adnexal cyst. All CT scans at this facility are performed using low dose modulation techniqu es as appropriate to perform exam including the following: automated exposure c ontrol; use of iterative reconstruction technique; adjustment of the mA and/or kV according to patient size (this includes techniques or standardized protocol s for targeted exams where dose is matched to indication/reason for exam).
[2025-01-11 14:42] VITALS: BP 135/88; PULSE 76; RESP 16; TEMP 36.4; O2SAT 100
--- OUTSIDE RECORDS SUMMARY | 2025-01-11 16:04 | XMS_ITS | Clinical Summary ---
Author Organization [facility] Address [address] [place] [address] Care Team Providers Care Gas Dispenser Name Role Phone Unavailable Primary Care Provider Unavailabl e Source Comments [facility],non-owned Affiliates and Associated Physician Practices is amultiple site organization consisting of ambulatory clinics and hospital sitesin [place], [place], [place] and [place]. This disclosure is being madepursuant to the Care Everywhere program and may not contain all information available regarding this patient. Last updated 17.[facility] Allergies No known active allergies Medications * [...] migh t be different from the original. [place] [employer] form completed. Size NB diapers [...] Encounters Date Type Department Care Team Description 12/16/2024 Telephone [facility] - Infectious Disease [address] [place] [address] Eddi Ruiz MD Appointment from Last 3 Months Immunizations Immunization Administration [...] medical care, and heating? Very hard 09/22/2024 [facility] [place] [facility] - Occupational Stress Questionnaire Answer Date Recorded [...] things needed for daily living? Yes 09/22/2024 [place] Depression Scale Answer Date Recorded H[place] Depression Scale Total 8 09/14/2024 The thought [...] any time in the past 12 m [facility], were you homeless or living in a residential (including now)? 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 Gender Identity Female 09/20/2024 2:19 PM CDT [...] VACCINE (1 - 3-dose SCDM series) 2023 DEPRESSION SCREENING 03/16/2024 COVID-19 VACCINE ( season) 2024 INFLUENZA VACCINE (#1) 2024 6, 01/21/2011, 02/14/2010, Additional history exists ZOSTER VACCINE (1 of 2) 2046 HIB VACCINE Aged Out No longer eligi [...] on patient's age to complete this topic Insurance [facility] Advance Directives * Full Code (Latest Code Status on File) Date Activated Date Inactivated Comments 09/11/2024 9:25 PM 09/14/2024 6:15 PM * Full Code Date Activated Date Inactivated Comments 09/10/2024 12:29 PM 09/11/2024 2:11 PM * Full Code Date Activated Date Inactivated Comments 12/18/2019 11:36 PM 12/20/2019 3:47 PM
--- OUTSIDE RECORDS SUMMARY | 2025-01-11 16:04 | XMS_ITS | Encounter Summary ---
Author Organization [facility] Address [address] [place] [address] Care Team Providers Care Obiee Consultant Name Role Phone Unavailable Primary Care Provider Unavailabl e Encounter Details Date Type Department Care Team (Late st Contact Info) Description 01/19/2020 Telephone [facility] Women's Health Maternal & Care [address] [place] [address] Nilda Person Social History Tobacco Use Types Packs/Day Years Used Date Smoking Tobacco: Never Smokeless Tobacco: Never Alcohol Use Standard Drinks/Week Comments Not Currently 0 (1 standard drink = 0.6 oz pur e alcohol) Comments No Sex and Gender Information Value Date Recorded Sex Assigned at Female 09/11/2024 10:14 PM CDT 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
--- NOTE | 2025-01-11 17:48 | ED_ITS ---
HPI - Abdominal Pain General Chief Complaint: Abdominal Pain Stated Complaint: right flank pain, headache Time Seen by Provider: 01/11/25 17:31 History of Present Illness HPI narrative: Patient is a 29-year-old female who presents to the ER with right flank, right back, and right abdominal pain for weeks. she also endorses a headache for the past 2 days. Patient endorses a history of high blood pressure but denies other medical history, although her chart indicates she has a complicated medical history of substance abuse, syphilis, and multiple pregnancies. She denies any recent fevers, blood in her urine, or chest pain. Related Data Allergies Allergy/AdvReac Type Severity Reaction Status Date / Time No Known Allergies Allergy Verified 01/11/25 14:44 Review of Systems 2 Review of Systems: All systems reviewed & are unremarkable except as noted in HPI and below PMFSH Past Medical History Medical History Syphilis Depression History of 3 Orthostatic hypotension Antepartum syphilis Polysubstance abuse Marijuana and amphetamines positive August 07 No care in current care established in early July with Dr. Berry Surgical History Surgical History H/O section 1 and 2 Social History Social History Smoking status: Never smoker Alcohol intake: never Substance use: former Substance use type: marijuana Do You Feel Safe in your Home?: Yes Lack of Transportation: YES Lack of Food: Sometimes True Current Housing: I Do Not Have Housing Concerned About Future Housing: YES Difficulty Paying Gas/Electric Bills: YES Difficulty Paying for Meds: YES Currently Unemployed: YES Education: High School Diploma/GED Difficulty w/ Childcare or Family Care: YES Gender identity (if verbalized by the patient): Female Exam 2 Narrative: GENERAL: Ill appearing, well-nourished, non-toxic, in mild distress. HEAD: Normocephalic, atraumatic. NECK: Supple. No adenopathy, no masses. RESPIRATORY: Airway patent, respirations nonlabored. Clear to auscultation bilaterally, no rales, rhonchi, wheezing. CARDIOVASCULAR: Regular rate and rhythm without murmurs, rubs, or gallops. Peripheral pulses 2+ and equal bilaterally. + CVA tenderness ABDOMINAL: Soft, Right upper and right lower quadrant tenderness, nondistended, no hepatosplenomegaly. Normoactive BS. MUSCULOSKELETAL: Moves all extremities. Strength/ROM intact without gross deformities. SKIN: Warm, dry, normal color. No rashes. NEURO: A&O X3. Speech clear. Cranial nerves II-XII intact. No ataxic movements. PSYCHIATRIC: Appropriate mood and affect. Normal interaction. Course Vital Signs Vital signs: Vital Signs Temperature 36.4 C 01/11/25 14:42 Pulse Rate 76 01/11/25 14:42 Respiratory Rate 16 01/11/25 14:42 Blood Pressure 135/88 01/11/25 14:42 Pulse Oximetry 100 01/11/25 14:42 Oxygen Delivery Room Air 01/11/25 14:42 Temperature 36.4 C 01/11/25 14:42 Pulse Rate 76 01/11/25 14:42 Respiratory Rate 16 01/11/25 14:42 Blood Pressure 135/88 01/11/25 14:42 Pulse Oximetry 100 01/11/25 14:42 Oxygen Delivery Room Air 01/11/25 14:42 MDM - Abdominal Pain MDM Narrative Medical decision making narrative: Patient is a 29-year-old female who presents to the ER with right flank, right back, and right abdominal pain for weeks. She also endorses a headache for the past 2 days. Patient endorses a history of high blood pressure but denies other medical history, although her chart indicates she has a complicated medical history of substance abuse, syphilis, and multiple pregnancies. She denies any recent fevers, blood in her urine, or chest pain. Labs Ordered: CBC, CMP, beta hCG, UA, UDS, lipase Imaging Ordered: CT abdomen/pelvis Medications Ordered: 1 L normal saline IV bolus, Benadryl IV, Reglan IV, Toradol IM Results: Pt's CT scan indicates The lung bases are clear. The liver parenchyma is unremarkable. No intrahepatic mass or ductal dilatation is evident. The gallbladder is unremarkable. The pancreas and spleen are normal in appearance. The adrenal glands are symmetric in size. The kidneys demonstrate symmetric uptake and excretion of contrast. No cystic mass is evident. There is no solid mass. There is no hydronephrosis. Evaluation of the stomach and bowel loops are limited due to lack of oral contrast. The appendix is normal in appearance. The bladder and rectum are normal. Endometrium is thickened. 3.9 x 2.2 cm cyst. No free intraperitoneal fluid or air is evident. There is no significant retroperitoneal lymphadenopathy. The aorta, visceral vessels and renal arteries demonstrate normal caliber and patency. The lower thoracic and lumbar vertebrae are in normal alignment. Diagnosis: R flank pain Patient Education/Shared MDM: Results of lab work and imaging shared with patient. She endorses improvement of symptoms following medication administration. Patient strongly advised to follow-up with her PCP as soon as possible. She will be discharged home with no new prescriptions. Strict return precautions provided. Patient verbalized understanding and is in agreement with plan. Vital signs stable at time of discharge. All questions answered. Differential Diagnosis Differential diagnosis: Likely abdominal pain, calculus of kidney, constipation and other ( Ovarian cyst, adnexal cyst) Lab Data Attestation: I reviewed the patient's lab results. 01/11/25 17:49 01/11/25 17:49 Labs: Lab Results 01/11/25 01/11/25 Range/Units 17:49 18:47 WBC 4.7 (4.5-10.0) K/mm3 RBC 4.05 L (4.2-5.4) M/mm3 Hgb 10.7 L (12.0-15.0) g/dL Hct 34.2 L (37.0-47.0) % MCV 84.4 (80-100) fl MCH 26.4 (26-34) pg MCHC 31.3 L (32-36) g/dl RDW 17.8 H (11.5-14.5) % Plt Count 308 (150-375) k/mm3 MPV 8.5 (7.4-10.4) fl Immature Gran % (Auto) 0.2 (0-0.5) % Neut % (Auto) 81.6 H (45.5-73.1) % Lymph % (Auto) 13.2 L (18.3-44.2) % [place] % (Auto) 4.0 (2.6-8.5) % Eos % (Auto) 0.4 (0-4.4) % Baso % (Auto) 0.6 (0.2-1.2) % Lymph # (Auto) 0.62 L (0.9-3.2) K/mm3 [place] # (Auto) 0.2 (0.1-0.6) K/mm3 Eos # (Auto) 0.0 (0-0.3) K/mm3 Baso # (Auto) 0.0 (0.0-0.1) K/mm3 Abs Immat Gran (auto) 0.01 (0.00-0.031) K/mm3 Absolute Neuts (auto) 3.8 (1.3-6.7) K/mm3 Absolute Nucleated RBC 0.000 (0.0-0.012) K/mm3 Nucleated RBC % 0.0 (0.0-0.2) % Sodium 137 (137-145) mmol/L Potassium 4.0 (3.4-5.0) mmol/L Chloride 103 (98-107) mmol/L Carbon Dioxide 25 (22-30) mmol/L Anion Gap 9 (4-12) mmol/L BUN 7 (7-17) mg/dL Creatinine 0.68 L (0.7-1.0) mg/dL Estim Creat Clear Calc 106 ml/min Estimated GFR > 60 (59 - ) Glucose 102 (65-110) mg/dL Calcium 8.9 (8.4-10.2) mg/dL Total Bilirubin 0.4 (0.2-1.3) mg/dL AST 37 H (14-36) U/L ALT 16 (6-35) U/L Alkaline Phosphatase 71 (38-126) U/L Total Protein 8.5 H (6.3-8.2) g/dL Albumin 4.7 (3.5-5.1) g/dL Lipase 96 (23-300) U/L Beta HCG, Quant < 2.39 mIU/ML Urine Color Yellow (Yellow) Urine Appearance Clear (Clear) Urine pH 7.0 (5.0-9.0) Ur Specific [place] 1.009 (1.001-1.035) Urine Protein Negative (Negative) mg/dL Urine Glucose (UA) Negative (Negative) mg/dL Urine Ketones Negative (Negative) mg/dL Ur Blood (Man) Negative (Negative) Urine Nitrate Negative (Negative) Urine Bilirubin Negative (Negative) Urine Urobilinogen 0.2 (<2.0) mg/dL Leukocyte Esterase Rfl Negative (Negative) RAFY/UL Urine Opiates Screen Negative (Negative) Urine Methadone Screen Negative (Negative) Ur Barbiturates Screen Negative (Negative) Ur Phencyclidine Scrn Negative (Negative) Ur Amphetamine Screen Negative (Negative) U Benzodiazepines Scrn Negative (Negative) Urine Cocaine Screen Negative (Negative) U Cannabinoids Screen Positive A (Negative) Imaging Data Attestation: I personally reviewed and interpreted this imaging study as follows: Radiologist's impression: ITS Impressions Abdomen/Pelvis CT 01/11/25 20:41 IMPRESSION: Thickened endometrium. 3.9 x 2.2 cm right adnexal cyst. All CT scans at this facility are performed using low dose modulation techniques as appropriate to perform exam including the following: automated exposure control; use of iterative reconstruction technique; adjustment of the mA and/or kV according to patient size (this includes techniques or standardized protocols for targeted exams where dose is matched to indication/reason for exam). Discharge Plan Discharge Clinical Impression: Chronic right flank pain, Adnexal cyst Abdominal pain Qualifiers: Abdominal location: generalized Qualified Code(s): R10.84 - Generalized abdominal pain Patient Disposition: Home Condition: Stable Instructions: Antibiotic Form, Abdominal Pain (ED) Additional Instructions: Please return to the ER with any worsening symptoms. Follow-up with primary care provider as soon as possible. Take all medications as prescribed, including regularly scheduled medications. You may take Tylenol and ibuprofen as needed for pain control. Patient Language: Citizen Of [place] Prescriptions: No Action acetaminophen-codeine 300-30 mg tablet 1 tablet PO Q8H PRN (Reason: pain) Qty: 20 0RF escitalopram oxalate [Lexapro] 10 mg tablet 10 mg PO DAILY Qty: 30 1RF Follow-up/Referrals: Arun Ovalle MD [Physician, SUBSTATION MAINTENANCE TECHNICIAN] Sanford Stubbs MD [Physician, SUBSTATION MAINTENANCE TECHNICIAN] PHYSICIAN,DIRECTOR OF RECRUITMENT AND ADMISSIONS [Primary Care Provider, Internal Medicine] Marlo Garcia MD [Physician, Family Practice] Time of Disposition: 22:19
[2025-01-11 17:53] LABS: Hematocrit 34.2 % (37.0-47.0); Hemoglobin 10.7 g/dL (12.0-15.0); Immature Granulocyte Percent A 0.2 % (0-0.5); Lymphocytes Absolute Auto 0.62 K/mm3 (0.9-3.2); Mean Corpuscular HGB Conc 31.3 g/dl (32-36); Mean Corpuscular Hemoglobin 26.4 pg (26-34); Mean Corpuscular Volume 84.4 fl (80-100); Nucleated Red Blood Cells Absolute Auto 0.000 K/mm3 (0.0-0.012); Nucleated Red Blood Cells Perc 0.0 % (0.0-0.2); Platelet Count Result 308 k/mm3 (150-375); Red Blood Count 4.05 M/mm3 (4.2-5.4); White Blood Count 4.7 K/mm3 (4.5-10.0)
[2025-01-11] MEDS: SODIUM CHLORIDE 0.9% IV 1,000 ML 999 ML IV CONT (18:00)
[2025-01-11] MEDS: METOCLOPRAMIDE HCL INJ 10 MG/2 ML VIAL IV PUSH (18:00)
[2025-01-11 18:05] LABS: Alanine Aminotransferase 16 U/L (6-35); Albumin Level 4.7 g/dL (3.5-5.1); Alkaline Phosphatase 71 U/L (38-126); Anion Gap 9 mmol/L (4-12); Aspartate Amino Transferase 37 U/L (14-36); Bilirubin,Total 0.4 mg/dL (0.2-1.3); Blood Urea Nitrogen 7 mg/dL (7-17); Calcium 8.9 mg/dL (8.4-10.2); Carbon Dioxide 25 mmol/L (22-30); Chloride 103 mmol/L (98-107); Estimated CRCL calculation 106 ml/min; Estimated Glomerular Filt Rate > 60; Glucose 102 mg/dL (65-110); Lipase 96 U/L (23-300); Potassium 4.0 mmol/L (3.4-5.0); Sodium 137 mmol/L (137-145); Total Protein 8.5 g/dL (6.3-8.2)
--- OUTSIDE RECORDS SUMMARY | 2025-01-11 18:14 | XMS_ITS | Clinical Summary ---
Author Organization [facility] Address [address] [place] [address] Care Team Providers Care Scrap Preparation Supervisor Name Role Phone Unavailable Primary Care Provider Unavailabl e Source Comments [facility],non-owned Affiliates and Associated Physician Practices is amultiple site organization consisting of ambulatory clinics and hospital sitesin [place], [place], [place] and [place]. This disclosure is being madepursuant to the Care Everywhere program and may not contain all information available regarding this patient. Last updated 17.[facility] Allergies No known active allergies Medications * [...] migh t be different from the original. [place] [employer] form completed. Size NB diapers [...] Type Department Care Team Description 12/16/2024 Telephone [facility] - Infectious Disease [address] [place] [address] Eddi Ruiz MD Appointment from Last 3 [...] medical care, and heating? Very hard 09/22/2024 [facility] [place] of Occupat ional Health - Occupational Stress [...] things needed for daily living? Yes 09/22/2024 [place] Depression Scale Answer Date Recorded [place] Depression Scale Total 8 09/14/2024 The thought [...] any time in the past 12 m [facility], were you homeless or living in a usp (including now)? 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
--- OUTSIDE RECORDS SUMMARY | 2025-01-11 18:14 | XMS_ITS | Encounter Summary ---
Author Organization [facility] Address [address] [place] [address] Care Team Providers Care Dumpling Machine Operator Name Role Phone Unavailable Primary Care Provider Unavailabl e Encounter Details Date Type Department Care Team (Late st Contact Info) Description 01/19/[address] 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
[2025-01-11 18:55] LABS: Add Urine Microscopic? NO; Appearance Urine Clear (Clear); Glucose Urine UA Negative (Negative); Leukocyte Esterase Ur Negative LEU/UL (Negative); Nitrate Urine Negative (Negative); Specific Grav Ur 1.009 (1.001-1.035)
[2025-01-11 19:23] LABS: Cannabinoid Screen Urine Positive (Negative)
[2025-01-11 19:48] LABS: Beta HCG Quantitative < 2.39 mIU/ML
[2025-01-11] MEDS: KETOROLAC (*BKC) 60 MG/2 ML VIAL IM (21:42)
== END 2025-01-11 22:19 | disposition home or self-care (01) ==
PROVIDERS: Emergency Provider Registered Nurse
DX: N94.89 Other specified conditions associated with female genital organs and menstrual cycle (principal); R10.A1 Flank pain, right side; R10.84 Generalized abdominal pain; G89.29 Other chronic pain; I10 Essential (primary) hypertension; F32.A Depression, unspecified
CPT/HCPCS: 36415; 74177; 80053; 80307; 81003; 83690; 84702; 85025; 96361; 96372; 96374; 96375; 99284; J1200; J1885; J2765; J7030; Q9967

== ENCOUNTER 2025-02-06 13:25 | Emergency (ER) | payer OTHER, SELFPAY ==
--- NOTE | ~2025-02-06 | US_ITS ---
EXAMINATION: Ultrasound pelvis complete with transvaginal: DATE: 02/06/2025. INDICATION: Abdominal, pelvic pain, worsening for 2 months. Previous history of 3.9 x 2.2 cm right adnexal cyst. Rule out torsion. TECHNIQUE: Transabdominal and transvaginal examination with Doppler. were obtained. COMPARISON: CT abdomen and pelvis dated 01/11/2025. FINDINGS: Slightly bulky uterus measuring the length of 8 cm and a width of 3.9 cm. Endometrium measures 8 mm. Thin-walled unilocular cyst of right ovary is noted measuring 3.3 x 2.9 cm in size. Color perfusion of the right ovary is noted. No ultrasound evidence of right ovarian torsion. Left ovary is normal in size measuring 5 cc in volume with normal perfusion. Small quantity of free fluid in the cul-de-sac. IMPRESSION: 1. Slightly bulky uterus. No endometrial thickening. 2. 3.3 x 2.9 cm thin-walled unilocular cyst of right ovary. Normal color perfusion of both ovaries are seen. 3. Minimal free fluid in the posterior cul-de-sac. Reviewed, dictated and finalized at location T. STOVE SERVICER HELPER IMPRESSION: 1. Slightly bulky uterus. No endometrial thickening. 2. 3.3 x 2.9 cm thin-walled unilocular cyst of right ovary. Normal color perfus ion of both ovaries are seen. 3. Minimal free fluid in the posterior cul-de-sac.
[2025-02-06 13:37] VITALS: BP 150/81; PULSE 91; RESP 17; TEMP 36.6; O2SAT 100
--- NOTE | 2025-02-06 14:26 | ED_ITS ---
HPI - Abdominal Pain General Chief Complaint: Abdominal Pain <Dalia Worrell PA-C - Last Filed: 02/06/25 19:01> Stated Complaint: abd pain <Dalia Worrell PA-C - Last Filed: 02/06/25 19:01> Time Seen by Provider: 02/06/25 14:27 <Dalia Worrell PA-C - Last Filed: 02/06/25 19:01> Focused HPI: This is a 29 year old female that presents to the ER for abdominal pain. Ongoing intermittently over the last couple of months. Reports right sided abdominal pain, flank pain. Denies fever, vomiting, diarrhea, dysuria. GENERAL: Well-appearing, well-nourished, and in no acute distress. HEAD: Normocephalic, atraumatic. CHEST: No respiratory distress. HEART: Regular rate NEURO: ?Alert and oriented x3. Patient screened in triage and initial orders placed.? ?Additional care and disposition to be based upon?diagnostic testing and treatment. <Dalia Worrell PA-C - Last Filed: 02/06/25 19:01> History of Present Illness HPI narrative: I agree with the above HPI <Yemi Mi MD - Last Filed: 02/07/25 07:39> Related Data Allergies/Adverse Reactions: Allergies Allergy/AdvReac Type Severity Reaction Status Date / Time No Known Allergies Allergy Verified 02/06/25 17:46 <Dalia Worrell PA-C - Last Filed: 02/06/25 19:01> Review of Systems 2 Review of Systems: All systems reviewed & are unremarkable except as noted in HPI and below <Dalia Worrell PA-C - Last Filed: 02/06/25 19:01> PMFSH Past Medical History Medical History: Medical History Syphilis Depression History of 3 Orthostatic hypotension Antepartum syphilis Polysubstance abuse Marijuana and amphetamines positive August 07 No care in current care established in early July with Dr. Berry <Dalia Worrell PA-C - Last Filed: 02/06/25 19:01> Surgical History Surgical History: Surgical History H/O section 1 and 2 <Dalia Worrell PA-C - Last Filed: 02/06/25 19:01> Social History Social History: Social History Smoking status: Never smoker Alcohol intake: never Substance use: former Substance use type: marijuana Do You Feel Safe in your Home?: Yes Lack of Transportation: YES Lack of Food: Sometimes True Current Housing: I Do Not Have Housing Concerned About Future Housing: YES Difficulty Paying Gas/Electric Bills: YES Difficulty Paying for Meds: YES Currently Unemployed: YES Education: High School Diploma/GED Difficulty w/ Childcare or Family Care: YES Gender identity (if verbalized by the patient): Female <Dalia Worrell PA-C - Last Filed: 02/06/25 19:01> Exam 2 Narrative: APPEARANCE: Well appearing, no pain, no distress, well-nourished. HEAD: normocephalic, atraumatic. EYES: PERRLA/EOMI, conjunctivae clear. NOSE: Normal no drainage EARS:TMS clear with good light reflex. THROAT: Pharynx clear, no exudate. NECK: Supple. No adenopathy, no masses. RESPIRATORY: Airway patent, respirations nonlabored. Clear to auscultation bilaterally, no rales, rhonchi, wheezing. CARDIOVASCULAR: Regular rate and rhythm without murmurs rubs or gallops. ABDOMINAL: lower abdominal tenderness to palpation MUSCULOSKELETAL: Moves all extremities. Strength/ROM intact, No edema, No calf tenderness. NEURO: Alert. Cranial nerves II through XII intact. Good gait. Good coordination SKIN: Warm, dry. Normal Color PSYCHIATRIC: Normal affect/mood. <Yemi Mi MD - Last Filed: 02/07/25 07:39> Course Vital Signs Vital signs: Vital Signs Temperature 97.9 F 02/06/25 13:37 Pulse Rate 91 02/06/25 13:37 Respiratory Rate 17 02/06/25 13:37 Blood Pressure 150/81 H 02/06/25 13:37 Pulse Oximetry 100 02/06/25 13:37 Oxygen Delivery Room Air 02/06/25 13:37 Temperature 97.9 F 02/06/25 13:37 Pulse Rate 91 02/06/25 18:27 Respiratory Rate 18 02/06/25 18:27 Blood Pressure 124/83 02/06/25 18:27 Pulse Oximetry 100 02/06/25 18:27 Oxygen Delivery Room Air 02/06/25 13:37 <Dalia Worrell PA-C - Last Filed: 02/06/25 19:01> Vital Signs Temperature 97.9 F 02/06/25 13:37 Pulse Rate 91 02/06/25 13:37 Respiratory Rate 17 02/06/25 13:37 Blood Pressure 150/81 H 02/06/25 13:37 Pulse Oximetry 100 02/06/25 13:37 Oxygen Delivery Room Air 02/06/25 13:37 Temperature 97.9 F 02/06/25 13:37 Pulse Rate 91 02/06/25 18:27 Respiratory Rate 18 02/06/25 18:27 Blood Pressure 124/83 02/06/25 18:27 Pulse Oximetry 100 02/06/25 18:27 Oxygen Delivery Room Air 02/06/25 13:37 <Yemi Mi MD - Last Filed: 02/07/25 07:39> MDM - Abdominal Pain MDM Narrative Medical decision making narrative: 29-year-old female present to the emergency department for evaluation for lower abdominal pain. Pain chest currently afebrile with no leukocytosis and hemoglobin of 10.8. Patient has no abnormalities on her CMP UA was negative for infection, urine test was negative. Pelvic ultrasound showed no evidence of torsion but did show a bulk uterus. Patient does have close follow- up with OB Gyne. questions and concerns were addressed. Patient was comfortable with plan for discharge And close follow-up <Yemi Mi MD - Last Filed: 02/07/25 07:39> Differential Diagnosis Differential diagnosis: Likely abdominal pain, calculus of kidney, diverticulitis, endometriosis and gastroenteritis <Yemi Mi MD - Last Filed: 02/07/25 07:39> Lab Data Attestation: I reviewed the patient's lab results. <Yemi Mi MD - Last Filed: 02/07/25 07:39> Result diagrams: 02/06/25 15:18 02/06/25 15:18 <Dalia Worrell PA-C - Last Filed: 02/06/25 19:01> Labs: Lab Results 02/06/25 02/06/25 Range/Units 15:17 15:18 WBC 4.6 (4.5-10.0) K/mm3 RBC 4.01 L (4.2-5.4) M/mm3 Hgb 10.8 L (12.0-15.0) g/dL Hct 34.9 L (37.0-47.0) % MCV 87.0 (80-100) fl MCH 26.9 (26-34) pg MCHC 30.9 L (32-36) g/dl RDW 19.2 H (11.5-14.5) % Plt Count 369 (150-375) k/mm3 MPV 8.7 (7.4-10.4) fl Immature Gran % (Auto) 0.2 (0-0.5) % Neut % (Auto) 49.9 (45.5-73.1) % Lymph % (Auto) 38.8 (18.3-44.2) % [place] % (Auto) 6.3 (2.6-8.5) % Eos % (Auto) 3.9 (0-4.4) % Baso % (Auto) 0.9 (0.2-1.2) % Lymph # (Auto) 1.78 (0.9-3.2) K/mm3 [place] # (Auto) 0.3 (0.1-0.6) K/mm3 Eos # (Auto) 0.2 (0-0.3) K/mm3 Baso # (Auto) 0.0 (0.0-0.1) K/mm3 Abs Immat Gran (auto) 0.01 (0.00-0.031) K/mm3 Absolute Neuts (auto) 2.3 (1.3-6.7) K/mm3 Absolute Nucleated RBC 0.000 (0.0-0.012) K/mm3 Nucleated RBC % 0.0 (0.0-0.2) % Sodium 138 (137-145) mmol/L Potassium 3.7 (3.4-5.0) mmol/L Chloride 106 (98-107) mmol/L Carbon Dioxide 25 (22-30) mmol/L Anion Gap 7 (4-12) mmol/L BUN 7 (7-17) mg/dL Creatinine 0.79 (0.7-1.0) mg/dL Estim Creat Clear Calc 93 ml/min Estimated GFR > 60 (59 - ) Glucose 86 (65-110) mg/dL Calcium 9.3 (8.4-10.2) mg/dL Total Bilirubin 0.4 (0.2-1.3) mg/dL AST 36 (14-36) U/L ALT 15 (6-35) U/L Alkaline Phosphatase 59 (38-126) U/L Total Protein 8.7 H (6.3-8.2) g/dL Albumin 4.7 (3.5-5.1) g/dL Lipase 137 (23-300) U/L Urine Color Yellow (Yellow) Urine Appearance Clear (Clear) Urine pH 6.0 (5.0-9.0) Ur Specific [place] 1.020 (1.001-1.035) Urine Protein Negative (Negative) mg/dL Urine Glucose (UA) Negative (Negative) mg/dL Urine Ketones Negative (Negative) mg/dL Ur Blood (Man) Negative (Negative) Urine Nitrate Negative (Negative) Urine Bilirubin Negative (Negative) Urine Urobilinogen 1.0 (<2.0) mg/dL Leukocyte Esterase Rfl Negative (Negative) RAFY/UL POC Urine HCG, Qual Negative (Negative) <Dalia Worrell PA-C - Last Filed: 02/06/25 19:01> Lab Results 02/06/25 02/06/25 Range/Units 15:17 15:18 WBC 4.6 (4.5-10.0) K/mm3 RBC 4.01 L (4.2-5.4) M/mm3 Hgb 10.8 L (12.0-15.0) g/dL Hct 34.9 L (37.0-47.0) % MCV 87.0 (80-100) fl MCH 26.9 (26-34) pg MCHC 30.9 L (32-36) g/dl RDW 19.2 H (11.5-14.5) % Plt Count 369 (150-375) k/mm3 MPV 8.7 (7.4-10.4) fl Immature Gran % (Auto) 0.2 (0-0.5) % Neut % (Auto) 49.9 (45.5-73.1) % Lymph % (Auto) 38.8 (18.3-44.2) % [place] % (Auto) 6.3 (2.6-8.5) % Eos % (Auto) 3.9 (0-4.4) % Baso % (Auto) 0.9 (0.2-1.2) % Lymph # (Auto) 1.78 (0.9-3.2) K/mm3 [place] # (Auto) 0.3 (0.1-0.6) K/mm3 Eos # (Auto) 0.2 (0-0.3) K/mm3 Baso # (Auto) 0.0 (0.0-0.1) K/mm3 Abs Immat Gran (auto) 0.01 (0.00-0.031) K/mm3 Absolute Neuts (auto) 2.3 (1.3-6.7) K/mm3 Absolute Nucleated RBC 0.000 (0.0-0.012) K/mm3 Nucleated RBC % 0.0 (0.0-0.2) % Sodium 138 (137-145) mmol/L Potassium 3.7 (3.4-5.0) mmol/L Chloride 106 (98-107) mmol/L Carbon Dioxide 25 (22-30) mmol/L Anion Gap 7 (4-12) mmol/L BUN 7 (7-17) mg/dL Creatinine 0.79 (0.7-1.0) mg/dL Estim Creat Clear Calc 93 ml/min Estimated GFR > 60 (59 - ) Glucose 86 (65-110) mg/dL Calcium 9.3 (8.4-10.2) mg/dL Total Bilirubin 0.4 (0.2-1.3) mg/dL AST 36 (14-36) U/L ALT 15 (6-35) U/L Alkaline Phosphatase 59 (38-126) U/L Total Protein 8.7 H (6.3-8.2) g/dL Albumin 4.7 (3.5-5.1) g/dL Lipase 137 (23-300) U/L Urine Color Yellow (Yellow) Urine Appearance Clear (Clear) Urine pH 6.0 (5.0-9.0) Ur Specific [place] 1.020 (1.001-1.035) Urine Protein Negative (Negative) mg/dL Urine Glucose (UA) Negative (Negative) mg/dL Urine Ketones Negative (Negative) mg/dL Ur Blood (Man) Negative (Negative) Urine Nitrate Negative (Negative) Urine Bilirubin Negative (Negative) Urine Urobilinogen 1.0 (<2.0) mg/dL Leukocyte Esterase Rfl Negative (Negative) RAFY/UL POC Urine HCG, Qual Negative (Negative) <Yemi Mi MD - Last Filed: 02/07/25 07:39> Imaging Data Radiologist's impression: ITS Impressions Pelvic/Transvag US 02/06/25 17:37 IMPRESSION: 1. Slightly bulky uterus. No endometrial thickening. 2. 3.3 x 2.9 cm thin-walled unilocular cyst of right ovary. Normal color perfusion of both ovaries are seen. 3. Minimal free fluid in the posterior cul-de-sac. <Dalia Worrell PA-C - Last Filed: 02/06/25 19:01> ITS Impressions Pelvic/Transvag US 02/06/25 17:37 IMPRESSION: 1. Slightly bulky uterus. No endometrial thickening. 2. 3.3 x 2.9 cm thin-walled unilocular cyst of right ovary. Normal color perfusion of both ovaries are seen. 3. Minimal free fluid in the posterior cul-de-sac. <Yemi Mi MD - Last Filed: 02/07/25 07:39> Discharge Plan Discharge Clinical Impression: Migraine Abdominal pain Qualifiers: Abdominal location: generalized Qualified Code(s): R10.84 - Generalized abdominal pain <Dalia Worrell PA-C - Last Filed: 02/06/25 19:01> Patient Disposition: Home <Dalia Worrell PA-C - Last Filed: 02/06/25 19:01> Condition: Stable <Dalia Worrell PA-C - Last Filed: 02/06/25 19:01> Instructions: Antibiotic Form, Ovarian Cyst (ED), Abdominal Pain (ED) <Dalia Worrell PA-C - Last Filed: 02/06/25 19:01> Additional Instructions: Tylenol and ibuprofen for pain control. Have close follow-up with OB Gyne. If you have any worsening symptoms please call or return to the emergency department. <Dalia Worrell PA-C - Last Filed: 02/06/25 19:01> Patient Language: Kyrgyz <RONNY Sandoval Last Filed: 02/06/25 19:01> Prescriptions: No Action acetaminophen-codeine 300-30 mg tablet 1 tablet PO Q8H PRN (Reason: pain) Qty: 20 0RF escitalopram oxalate [Lexapro] 10 mg tablet 10 mg PO DAILY Qty: 30 1RF <Dalia Worrell PA-C - Last Filed: 02/06/25 19:01> Follow-up/Referrals: Chintan Berry MD [Physician, ADULT LIVE IN CAREGIVER] PHYSICIAN,AUTOMOTIVE ELECTRICAL FITTER [Primary Care Provider, Internal Medicine] <Dalia Worrell PA-C - Last Filed: 02/06/25 19:01>
[2025-02-06 15:17] VITALS: BP 128/82; PULSE 77; RESP 18; O2SAT 100
[2025-02-06 15:22] LABS: BEDSIDEPREGUCG Negative (Negative)
[2025-02-06 15:30] LABS: Hematocrit 34.9 % (37.0-47.0); Hemoglobin 10.8 g/dL (12.0-15.0); Immature Granulocyte Percent A 0.2 % (0-0.5); Lymphocytes Absolute Auto 1.78 K/mm3 (0.9-3.2); Mean Corpuscular HGB Conc 30.9 g/dl (32-36); Mean Corpuscular Hemoglobin 26.9 pg (26-34); Mean Corpuscular Volume 87.0 fl (80-100); Nucleated Red Blood Cells Absolute Auto 0.000 K/mm3 (0.0-0.012); Nucleated Red Blood Cells Perc 0.0 % (0.0-0.2); Platelet Count Result 369 k/mm3 (150-375); Red Blood Count 4.01 M/mm3 (4.2-5.4); White Blood Count 4.6 K/mm3 (4.5-10.0)
[2025-02-06 15:40] LABS: Add Urine Microscopic? NO; Appearance Urine Clear (Clear); Glucose Urine UA Negative (Negative); Leukocyte Esterase Ur Negative LEU/UL (Negative); Nitrate Urine Negative (Negative); Specific Grav Ur 1.020 (1.001-1.035)
[2025-02-06 15:43] LABS: Alanine Aminotransferase 15 U/L (6-35); Albumin Level 4.7 g/dL (3.5-5.1); Alkaline Phosphatase 59 U/L (38-126); Anion Gap 7 mmol/L (4-12); Aspartate Amino Transferase 36 U/L (14-36); Bilirubin,Total 0.4 mg/dL (0.2-1.3); Blood Urea Nitrogen 7 mg/dL (7-17); Calcium 9.3 mg/dL (8.4-10.2); Carbon Dioxide 25 mmol/L (22-30); Chloride 106 mmol/L (98-107); Estimated CRCL calculation 93 ml/min; Estimated Glomerular Filt Rate > 60; Glucose 86 mg/dL (65-110); Lipase 137 U/L (23-300); Potassium 3.7 mmol/L (3.4-5.0); Sodium 138 mmol/L (137-145); Total Protein 8.7 g/dL (6.3-8.2)
[2025-02-06] MEDS: LACTATED RINGERS 1,000 ML 999 ML IV CONT (17:36)
[2025-02-06] MEDS: HYDROmorphone HCL INJ (*CRX) 1 MG/ML SYR IV PUSH (17:36)
[2025-02-06] MEDS: METOCLOPRAMIDE HCL INJ 10 MG/2 ML VIAL IV PUSH (17:36)
[2025-02-06 17:41] VITALS: BP 132/74; PULSE 74; RESP 19; O2SAT 100
[2025-02-06 18:27] VITALS: BP 124/83; PULSE 91; RESP 18; O2SAT 100
--- OUTSIDE RECORDS SUMMARY | 2025-02-06 18:27 | XMS_ITS | Encounter Summary ---
Author Organization [facility] Address [address] [place] [address] Care Team Providers Care Whitewater Rafting Guide Name Role Phone Unavailable Primary Care Provider Unavailabl e Encounter Details Date Type Department Care Team (Late st Contact Info) Description 01/19/2020 Telephone [facility] Women's Health Maternal & Care [address] [place] [address] Nilda Person Social History Tobacco Use Types Packs/Day Years Used Date Smoking Tobacco: Never Smokeless Tobacco: Never Alcohol Use Standard Drinks/Week Comments Not Currently 0 (1 standard drink = 0.6 oz pur e alcohol) Comments No Sex and Gender Information Value Date Recorded Sex Assigned at Female 09/11/2024 10:14 PM CDT Legal Sex Female 5:38 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
--- OUTSIDE RECORDS SUMMARY | 2025-02-06 18:27 | XMS_ITS | Clinical Summary ---
Author Organization [facility] [employer] Address [address] [place] [address] Care Team Providers Care Parachutist/Combatant Diver Qualified Name Role Phone Unavailable Primary Care Provider Unavailabl e Source Comments [facility] [employer],non-owned Affiliates and Associated Physician Practices is amultiple site organization consisting of ambulatory clinics and hospital sitesin [place], [place], [place] and [place]. This disclosure is being madepursuant to the Care Everywhere program and may not contain all information available regarding this patient. Last updated 17.[facility] [employer] Allergies No known active allergies Medications * [...] migh t be different from the original. [place] [employer] form completed. Size NB diapers [...] Type Department Care Team Description 12/16/2024 Telephone [facility] - Infectious Disease [address] [place] [address] Eddi Ruiz MD Appointment from Last 3 [...] medical care, and heating? Very hard 09/22/2024 [facility] [place] of Occupat ional Health - Occupational Stress [...] things needed for daily living? Yes 09/22/2024 [place] Depression Scale Answer Date Recorded [place] Depression Scale Total 8 09/14/2024 The thought [...] any time in the past 12 m [facility], were you homeless or living in a nursing home (including now)? 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
== END 2025-02-06 18:28 | disposition home or self-care (01) ==
PROVIDERS: Physician Assistant; Emergency Provider Emergency Medicine
DX: G43.909 Migraine, unspecified, not intractable, without status migrainosus (principal); R10.84 Generalized abdominal pain
CPT/HCPCS: 36415; 76830; 76856; 80053; 81003; 81025; 83690; 85025; 96361; 96374; 96375; 99284; J1171; J2765; J7120

== ENCOUNTER 2025-02-08 14:26 | Outpatient (CLI) | payer OTHER, SELFPAY ==
--- OUTSIDE RECORDS SUMMARY | 2025-02-08 14:05 | XMS_ITS | Clinical Summary ---
Author Organization [facility] [employer] Address [address] [place] [address] Care Team Providers Care Transportation Assistant Name Role Phone Unavailable Primary Care Provider Unavailabl e Source Comments [facility] [employer] [facility]),non-owned Affiliates and Associated Physician Practices is amultiple site organization consisting of ambulatory clinics and hospital sitesin [place], [place], [place] and [place]. This disclosure is being madepursuant to the Care Everywhere program and may not contain all information available regarding this patient. Last updated 17.[facility] [employer] Allergies No known active allergies Medications * [...] migh t be different from the original. [place] [employer] form completed. Size NB diapers [...] Type Department Care Team Description 12/16/2024 Telephone [facility] - Infectious Disease [address] [place] [address] Eddi Ruiz MD Appointment from Last 3 [...] medical care, and heating? Very hard 09/22/2024 [facility] [place] of Occupat ional Health - Occupational Stress [...] things needed for daily living? Yes 09/22/2024 [place] Depression Scale Answer Date Recorded [place] Depression Scale Total 8 09/14/2024 The thought [...] any time in the past 12 m [facility], were you homeless or living in a [facility] (including now)? 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
--- OUTSIDE RECORDS SUMMARY | 2025-02-08 14:05 | XMS_ITS | Encounter Summary ---
Author Organization [facility] Address [address] [place] [address] Care Team Providers Care Bung Sewer Name Role Phone Unavailable Primary Care Provider Unavailabl e Encounter Details Date Type Department Care Team (Late st Contact Info) Description 01/19/2020 Telephone [facility] Women's Health Maternal & Care [address] [place] [address] Nilda Person Social History Tobacco Use Types Packs/Day Years Used Date Smoking Tobacco: Never Smokeless Tobacco: Never Alcohol Use Standard Drinks/Week Comments Not Currently 0 (1 standard drink = 0.6 oz pur e alcohol) Comments No Sex and Gender Information Value Date Recorded Sex Assigned at Female 09/11/2024 10:14 PM CDT Legal Sex Female 5:38 AM PRISON PSYCHIATRIST Gender Identity Female 09/20/2024 2:19 PM CDT [...]
--- OUTSIDE RECORDS SUMMARY | 2025-02-08 14:29 | XMS_ITS | Encounter Summary ---
Author Organization [facility] Address [address] [place] [address] Care Team Providers Care Vehicle Glass Technician Name Role Phone Unavailable Primary Care Provider Unavailabl e Encounter Details Date Type Department Care Team (Late st Contact Info) Description 01/19/2020 Telephone [facility] Women's Health Maternal & Care [address] [place] [address] Nilda Person Social History Tobacco Use Types Packs/Day Years Used Date Smoking Tobacco: Never Smokeless Tobacco: Never Alcohol Use Standard Drinks/Week Comments Not Currently 0 (1 standard drink = 0.6 oz pur e alcohol) Comments No Sex and Gender Information Value Date Recorded Sex Assigned at Female 09/11/2024 10:14 PM CDT Legal Sex Female 5:38 AM WAFER MOUNTER Gender Identity Female 09/20/2024 2:19 PM CDT [...]
--- OUTSIDE RECORDS SUMMARY | 2025-02-08 14:29 | XMS_ITS | Clinical Summary ---
Author Organization [facility] [employer] Address [address] [place] [address] Care Team Providers Care Orthotics Prosthetics Technician Name Role Phone Unavailable Primary Care Provider Unavailabl e Source Comments [facility] [employer],non-owned Affiliates and Associated Physician Practices is amultiple site organization consisting of ambulatory clinics and hospital sitesin [place], [place], [place] and [place]. This disclosure is being madepursuant to the Care Everywhere program and may not contain all information available regarding this patient. Last updated 17.[facility] [employer] Allergies No known active allergies Medications * [...] migh t be different from the original. [place] [employer] form completed. Size NB diapers [...] Type Department Care Team Description 12/16/2024 Telephone [facility] - Infectious Disease [address] [place] [address] Eddi Ruiz MD Appointment from Last 3 [...] medical care, and heating? Very hard 09/22/2024 [facility] [place] [facility] Occup[facility] ional [facility] - Occupational Stress [...] things needed for daily living? Yes 09/22/2024 [place] Depression Scale Answer Date Recorded [place] Depression Scale Total 8 09/14/2024 The thought [...] time in the past 12 m [facility], were you homeless or living in a assisted (including now)? No 09/22/2024 Comments No Sex and Gender Information Value Date Recorded Sex Assigned at Female 09/11/2024 10:14 PM CDT Legal Sex Female 5:38 AM ORACLE SOA CONSULTANT Gender Identity Female 09/20/2024 2:19 PM CDT [...] patient's age to complete this topic Insurance [facility] Advance Directives * Full Code (Latest Code Status on File) Date Activated Date Inactivated Comments 09/11/2024 9:25 PM 09/14/2024 6:15 PM * Full Code Date Activated Date Inactivated Comments 09/10/2024 12:29 PM 09/11/2024 2:11 PM * Full Code Date Activated Date Inactivated Comments 12/18/2019 11:36 PM 12/20/2019 3:47 PM
[2025-02-08 14:51] LABS: Hematocrit 32.6 % (37.0-47.0); Hemoglobin 10.2 g/dL (12.0-15.0); Mean Corpuscular HGB Conc 31.3 g/dl (32-36); Mean Corpuscular Hemoglobin 26.5 pg (26-34); Mean Corpuscular Volume 84.7 fl (80-100); Platelet Count Result 318 k/mm3 (150-375); Red Blood Count 3.85 M/mm3 (4.2-5.4); White Blood Count 3.6 K/mm3 (4.5-10.0)
[2025-02-08 15:16] LABS: Alanine Aminotransferase 13 U/L (6-35); Albumin Level 4.6 g/dL (3.5-5.1); Alkaline Phosphatase 64 U/L (38-126); Anion Gap 6 mmol/L (4-12); Aspartate Amino Transferase 31 U/L (14-36); Bilirubin,Total 0.5 mg/dL (0.2-1.3); Blood Urea Nitrogen 7 mg/dL (7-17); Calcium 9.1 mg/dL (8.4-10.2); Carbon Dioxide 24 mmol/L (22-30); Chloride 105 mmol/L (98-107); Estimated Glomerular Filt Rate > 60; Glucose 88 mg/dL (65-110); Potassium 3.8 mmol/L (3.4-5.0); Sodium 135 mmol/L (137-145); Total Protein 8.3 g/dL (6.3-8.2)
[2025-02-08 15:31] LABS: Thyroid Stimulating Hormone Reflex 0.686 uIU/mL (0.465-4.68)
[2025-02-08 16:09] LABS: Beta HCG Quantitative < 2.39 mIU/ML
[2025-02-08 16:22] LABS: Syphilis IgG/IgM Antibody Reactive (Nonreactive)
[2025-02-11 09:08] LABS: RPR Reactive (Non Reactive); RPR, Quant. YES YES
[2025-02-14 04:07] LABS: RPR Reactive (Non Reactive); RPR Reflex YES YES; RPR, Quant YES YES
== END 2025-02-08 14:27 | disposition home or self-care (01) ==
PROVIDERS: Referring Provider Obstetrics & Gynecology; Visit Provider Nurse Practitioner Family
DX: R10.84 Generalized abdominal pain (principal); F53.0 Postpartum depression
CPT/HCPCS: 36415; 80053; 84443; 84702; 85027; 86592; 86593; 86780